=== PATIENT | male | born 1960 | race African-American/Black ===

== ENCOUNTER 2018-04-17 04:52 | Emergency (ER) | payer MEDICARE ==
[2018-04-17] MEDS ORDERED: Dextrose 50% Abboject 50 ML SYRINGE ONE (05:18)
[2018-04-17 05:26] LABS: #Eosinphils 0.1 thou/uL (0.0-0.7); #Lymphocytes 1.7 thou/uL (1.20-3.40); #Monocytes 0.5 thou/uL (0.11-0.59); #Neutrophils 7.3 thou/uL (1.40-6.50); %Basophils 0.5 % (0.0-1.0); %Eosinophils 0.7 % (0.0-10.0); %Lymphocytes 17.5 % (21.0-51.0); %Monocytes 5.5 % (0.0-10.0); %Neutrophils 75.7 % (42.0-75.0); Hemoglobin 12.4 g/dL (14.0-18.0); Mean Corpuscular HGB CONC 35.6 g/dL (32.0-36.0); Mean Corpuscular Hemoglobin 30.6 pg (27.0-31.0); Mean Corpuscular Volume 86.1 fL (78.0-98.0); Mean Platelet Volume 8.1 fL (7.4-10.4); Platelet Count 202 thou/uL (130-400); RBC Distribution Width 12.9 % (11.5-14.5); Red Blood Cell (RBC) Count 4.05 mill/uL (4.70-6.10); White Blood Cell (WBC) Count 9.7 thou/uL (4.8-10.8)
[2018-04-17 05:39] LABS: ALT (SGPT) 8 U/L (8-55); AST (SGOT) 16 U/L (5-34); Albumin 4.3 g/dL (3.5-5.0); Alkaline Phosphatase 42 U/L (40-150); Anion Gap 19 mmol/L (10-20); BUN (Urea Nitrogen) 24 mg/dL (8.4-25.7); Bilirubin, Total 0.5 mg/dL (0.2-1.2); Calc. Creatinine Clearance 0 mL/min (70-130); Calcium 9.4 mg/dL (7.8-10.44); Carbon Dioxide 17 mmol/L (22-29); Chloride 103 mmol/L (98-107); Estimated GFR-MDRD Greater than 90; Globulin 3.9 g/dL (2.4-3.5); Glucose 115 mg/dL (70-105); Magnesium 1.2 mg/dL (1.6-2.6); Potassium 4.5 mmol/L (3.5-5.1); Protein, Total 8.2 g/dL (6.0-8.3); Sodium 134 mmol/L (136-145)
[2018-04-17 05:45] LABS: CKMB 1.2 ng/mL (0-6.6); Troponin I Less than 0.010 ng/mL (< 0.028)
--- NOTE | 2018-04-19 20:00 | EKG ---
Test Reason : Blood Pressure : / mmHG Vent. Rate : 108 BPM Atrial Rate : 108 BPM P-R Int : 170 ms QRS Dur : 076 ms QT Int : 332 ms P-R-T Axes : 062 061 077 degrees QTc Int : 444 ms Sinus tachycardia Nonspecific ST and T wave abnormality Abnormal ECG Confirmed by TONY FERREIRA ([id number]), video effects editor LANCE BARRERA ([id number]) on 04/19/2018 8:00:06 PM Referred By: Confirmed By:TONY FERREIRA
== END 2018-04-17 07:30 | disposition home or self-care (01) ==
LOC: ERS 04:52
DX: E11.649 Type 2 diabetes mellitus with hypoglycemia without coma (principal); I10 Essential (primary) hypertension; Z86.73 Personal history of transient ischemic attack (TIA), and cerebral infarction without residual deficits; Z79.899 Other long term (current) drug therapy; Z79.84 Long term (current) use of oral hypoglycemic drugs; Z79.82 Long term (current) use of aspirin; Z87.891 Personal history of nicotine dependence
CPT/HCPCS: 36416; 80053; 82553; 83735; 84484; 85025; 93005; 96374; J3475; J7050

== ENCOUNTER 2018-11-05 13:07 | Inpatient (IN) | payer MEDICARE ==
[2018-11-05 14:43] LABS: #Basophils 0.1 thou/uL (0.0-0.2); #Eosinphils 0.1 thou/uL (0.0-0.7); #Monocytes 0.4 thou/uL (0.11-0.59); #Neutrophils 3.8 thou/uL (1.40-6.50); %Basophils 1.1 % (0.0-1.0); %Eosinophils 1.7 % (0.0-10.0); %Lymphocytes 30.9 % (21.0-51.0); %Monocytes 6.8 % (0.0-10.0); %Neutrophils 59.5 % (42.0-75.0); Hemoglobin 11.8 g/dL (14.0-18.0); Mean Corpuscular HGB CONC 33.7 g/dL (32.0-36.0); Mean Corpuscular Hemoglobin 29.6 pg (27.0-31.0); Mean Corpuscular Volume 87.9 fL (78.0-98.0); Mean Platelet Volume 8.4 fL (7.4-10.4); Platelet Count 210 thou/uL (130-400); RBC Distribution Width 12.7 % (11.5-14.5); Red Blood Cell (RBC) Count 3.97 mill/uL (4.70-6.10); White Blood Cell (WBC) Count 6.4 thou/uL (4.8-10.8)
[2018-11-05] MEDS ORDERED: Aspirin Chewable 81 MG TAB ONE ×2 (15:00→15:01)
[2018-11-05 15:05] LABS: ALT (SGPT) 9 U/L (8-55); AST (SGOT) 11 U/L (5-34); Albumin 3.9 g/dL (3.5-5.0); Alkaline Phosphatase 45 U/L (40-150); Anion Gap 14 mmol/L (10-20); BUN (Urea Nitrogen) 10 mg/dL (8.4-25.7); Bilirubin, Total 0.6 mg/dL (0.2-1.2); Calc. Creatinine Clearance 0 mL/min (70-130); Calcium 8.9 mg/dL (7.8-10.44); Carbon Dioxide 22 mmol/L (22-29); Chloride 106 mmol/L (98-107); Estimated GFR-MDRD Greater than 90; Globulin 3.2 g/dL (2.4-3.5); Glucose 120 mg/dL (70-105); Potassium 4.1 mmol/L (3.5-5.1); Protein, Total 7.1 g/dL (6.0-8.3); Sodium 138 mmol/L (136-145)
--- NOTE | 2018-11-05 15:05 | CT ---
CT HEAD WITHOUT CONTRAST: 11/05/2018 HISTORY: Altered mental status and slurred speech with right-sided weakness. Dry cough. COMPARISON: 03/11/2017 FINDINGS: The imaged paranasal sinuses/mastoid air cells appear well aerated. There is no displaced calvarial fracture. There is extensive periventricular, deep, and subcortical white matter hypodensity, evidence of small vessel disease, as seen on prior imaging. Areas of prior infarction are noted near the vertex, in t he right frontal parietal region. Areas of prior lacunar infarction noted within the basal ganglia b ilaterally. IMPRESSION: Chronic findings, as detailed above. No intracranial hemorrhage. If there is clinical concern for acute infarction, brain MRI recommended. POS: [facility]
[2018-11-05 16:50] VITALS: BMI 25.2
[2018-11-05] MEDS ORDERED: Ondansetron ODT 4 MG TAB PO PRN (19:47)
[2018-11-05] MEDS ORDERED: Ondansetron PF 4 MG/2 ML Vial IVP PRN (19:47)
[2018-11-05] MEDS ORDERED: HumaLOG 300 UNITS/3 ML VIAL SC PRN (19:47)
[2018-11-05] MEDS ORDERED: Dextrose 50% Abboject 50 ML SYRINGE SLOW IVP PRN (19:47)
[2018-11-05] MEDS ORDERED: hydrALAZINE 20 MG/ML VIAL SLOW IVP PRN (19:47)
[2018-11-05] MEDS ORDERED: Acetaminophen 500 MG TAB PO PRN (19:47)
[2018-11-05] MEDS ORDERED: Dextrose 5% in Water 1,000 ML IV PRN (19:47)
[2018-11-05] MEDS: Sodium Chloride 0.9% 1,000 ML IV SCH (20:47)
[2018-11-05] MEDS: Famotidine/PF 20 mg/2ml Vial SLOW IVP SCH (20:47)
[2018-11-05] MEDS: Atorvastatin Calcium 40 MG TAB PO SCH (20:51)
--- NOTE | 2018-11-06 01:43 | HP ---
PRIMARY CARE PROVIDER: Dr. Barnes at the [facility]. CHIEF COMPLAINT: Difficulty with speech. HISTORY OF PRESENT ILLNESS: This is a 57-year-old male who presents to [facility] Emergency Department complaining of approximate 4-day history of difficulty with speech. The patient noted the difficulty approximately 4 to 5 days prior to this evaluation with family member stating that he was not speaking at all initially. The patient regained some slurred speech in the last 24 to 48 hours with associated increased cough. The family attributed his cough to developing cold symptoms, however, when his speech did not return, they became concerned. The patient was apparently evaluated at the [facility] with recommendations to transfer to [facility] for further evaluation and CT imaging. The patient states he has a history of CVA approximately 2 years prior to this evaluation with residual right-sided weakness and some contracture of the right upper extremity. The patient needs standby/contact guard assistance for ambulation at home according to family members. The patient eats regular diet without modification to the texture. No specific history of fall, injury, fever, nausea , vomiting, or diarrhea. The patient denies any other specific complaints other than difficulty with speech and some difficulty when swallowing. In the emergency room, the patient underwent general evaluation including CT imaging of the brain showing no acute intracranial process with chronic ischemic white matter changes. The patient received aspirin and was referred to the Hospitalist Service for admission. The patient does admit that he takes aspirin 325 mg daily. PAST MEDICAL HISTORY: 1. 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 2. Hypertension. 3. Hyperlipidemia. 4. Diabetes mellitus type 2. PAST SURGICAL HISTORY: 1. 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 2. Status post drainage of abscess on the neck. CURRENT MEDICATIONS: 1. Enteric-coated aspirin 325mg p.o. daily. 2. Lisinopril 5 mg p.o. daily. 3. Glucotrol XL 5 mg p.o. b.i.d. 4. Metformin 1000 mg p.o. b.i.d. 5. Simvastatin 10 mg p.o. at bedtime. ALLERGIES: NO KNOWN DRUG ALLERGIES. FAMILY HISTORY: Positive for hypertension and diabetes mellitus type 2. SOCIAL HISTORY: The patient is accompanied by his sister in the hospital. Resides in [place], [place]. Disabled. Remote history of marijuana use. No current alcohol. Smokes cigars, quit in the last year. Ambulatory with standby/contact guard assistance. Needs assistance with activities of daily living. REVIEW OF SYSTEMS: CONSTITUTIONAL: Negative for weight loss or gain, ability to conduct usual activities. SKIN: Negative for rash, itching. EYES: Negative for double vision, pain. ENT/MOUTH: Negative for nose bleeding, neck stiffness, pain, tenderness. CARDIOVASCULAR: Negative for palpitations, dyspnea on exertion, orthopnea. RESPIRATORY: Negative for shortness of breath, wheezing, cough, hemoptysis, fever or night sweats. GASTROINTESTINAL: Negative for poor appetite, abdominal pain, heartburn, nausea , vomiting, constipation, or diarrhea. GENITOURINARY: Negative for urgency, frequency, dysuria, nocturia. MUSCULOSKELETAL: Negative for pain, swelling. NEUROLOGIC/PSYCHIATRIC: Negative for anxiety, depression. ALLERGY/IMMUNOLOGIC: Negative for skin rash, bleeding tendency. Otherwise, negative except as stated per HPI. PHYSICAL EXAMINATION: VITAL SIGNS: On admission, blood pressure 138/86, pulse 98, respiratory rate 18 , temperature 98.9 degrees Fahrenheit, O2 saturation 98% on room air. GENERAL APPEARANCE: This is a 57-year-old male, alert and oriented x3, pleasant with dysarthria. HEENT: Pupils are equal, round, and reactive to light and accommodation. Extraocular muscles are intact. No scleral icterus. No conjunctival injection. Nares patent. OP is clear. Teeth in fair repair. Right facial asymmetry noted. NECK: Supple. No cervical adenopathy. No thyromegaly. No carotid bruits. No JVD appreciated. Cervical spine with full active and passive range of motion. No meningeal signs noted. CHEST: Lungs are clear to auscultation bilaterally. CARDIOVASCULAR: S1 and S2 without noted murmur, rub, or gallop. ABDOMEN: Rounded, soft, nontender, and nondistended. Bowel sounds are positive in all 4 quadrants. There is no hepatosplenomegaly. No abdominal bruits. No rebound or guarding appreciated. EXTREMITIES: Warm and dry with fair turgor. No clubbing, cyanosis, or asymmetric edema appreciated. Pulses are palpable distally at the dorsalis pedis, posterior tibial, and popliteal arteries bilaterally. Capillary refill less than 2 seconds. NEUROLOGIC: Positive dysarthria and expressive dysphasia. Chronic right hemiparesis with right upper extremity contracture. Left ntzge-lcz-zcuo amputation noted. PERTINENT LAB AND X-RAY FINDINGS: Sodium 138, potassium 4.1, chloride 106, CO2 of 22, BUN 10, creatinine 0.81, estimated GFR greater than 90, glucose 120, calcium 8.9. LFTs within normal limits. CBC showed white blood cell count of 6.4, hemoglobin 12, hematocrit 35, platelet count [address] of the brain without contrast dated 11/05/2018, showed chronic changes bilaterally without acute process. EKG dated 11/05/2018, by my interpretation shows sinus mechanism with heart rates in the 70s. Normal R-wave progression noted in the precordial leads. Normal axis. No acute ST-T wave changes appreciated. ASSESSMENT AND PLAN: 1. Acute/subacute ischemic cerebrovascular accident, suspect left-sided involvement in Broca's region. We will obtain MRI imaging to confirm. Likely subacute presentation. Transition to Plavix 75 mg daily as the patient is likely an aspirin failure. Check fasting lipid profile per stroke protocol. Check 2D transthoracic echocardiogram and carotid Doppler study. PT, OT, and Speech Therapy evaluation. 2. Dysphasia. We will obtain speech therapy consultation. N.p.o. status pending evaluation. 3. Expressive dysphasia/dysarthria. Secondarily to #1. We will continue to monitor clinically. Continue general stroke protocol. Plavix 75 mg p.o. daily. 4. Hypertension. Resume home regimen of lisinopril. Serial blood pressure monitoring. 5. Hyperlipidemia. Check fasting lipid profile in the a.m. Continue metformin 1000 mg p.o. b.i.d. 6. Diabetes mellitus type 2. Insulin sliding scale for reflexive coverage. Metformin 1000 mg p.o. b.i.d. Accu-Cheks a.c. and at bedtime. ADA diet. 7. Prophylaxis. Sequential compression devices while in bed. Pepcid 20 mg p.o. b.i.d. CODE STATUS: Full. Surrogate medical decision maker is the patient's sister. Job ID: [id number] MTDD
[2018-11-06 06:00] LABS: Hemoglobin A1c 5.5 % (4.0-6.0)
[2018-11-06 06:04] LABS: Band 1 % (5-11); Eosinophils 4 % (0-10); Hemoglobin 11.4 g/dL (14.0-18.0); Lymphocytes 35 % (21-51); MDiff Complete? YES; Mean Corpuscular HGB CONC 33.1 g/dL (32.0-36.0); Mean Corpuscular Hemoglobin 29.2 pg (27.0-31.0); Mean Corpuscular Volume 88.2 fL (78.0-98.0); Mean Platelet Volume 8.4 fL (7.4-10.4); Monocytes 9 % (0-10); Neutrophil 51 % (42-75); Platelet Count 190 thou/uL (130-400); RBC Distribution Width 12.6 % (11.5-14.5); Red Blood Cell (RBC) Count 3.91 mill/uL (4.70-6.10); White Blood Cell (WBC) Count 5.1 thou/uL (4.8-10.8)
[2018-11-06 06:13] LABS: Anion Gap 12 mmol/L (10-20); BUN (Urea Nitrogen) 8 mg/dL (8.4-25.7); Calc. Creatinine Clearance 112 mL/min (70-130); Calcium 8.6 mg/dL (7.8-10.44); Carbon Dioxide 21 mmol/L (22-29); Cardiac Risk 2.7 (Less than 4.5); Chloride 110 mmol/L (98-107); Cholesterol 120 mg/dl (< 200 Desired); Estimated GFR-MDRD Greater than 90; Glucose 92 mg/dL (70-105); HDL Cholesterol 45 mg/dL (>60 Neg Risk); LDL Cholesterol, Calculated 65 mg/dL; Potassium 3.9 mmol/L (3.5-5.1); Sodium 139 mmol/L (136-145); Triglycerides 50 mg/dL (Less than 150)
[2018-11-06] MEDS: Sodium Chloride 0.9% 1,000 ML IV SCH ×2 (06:17→21:50)
--- NOTE | 2018-11-06 10:19 | MRI ---
BRAIN MRI WITHOUT CONTRAST: Date: 11/06/18 COMPARISON: 03/12/17. HISTORY: Altered mental status, right-sided weakness, slurred speech, assess for acute infarction. TECHNIQUE: Multiplanar, multisequence MR imaging of the brain provided without contrast. FINDINGS: The diffusion-weighted imaging demonstrates a subcentimeter focus of restricted diffusion, consistent with acute infarction involving the ventral aspect of the nathanael just below the junction with the midb rain on the right. This focus of acute infarction measures in the 5.0 mm range. No additional foci of restricted diffusion are noted. The axial gradient echo imaging demonstrates no evidence for acute hemorrhage. There is moderate diff use cerebral volume loss. There is extensive multifocal periventricular, deep, and subcortical white matter T2 and FLAIR hyperintensity, evidence of small vessel disease. There is evidence of prior infa rction involving the frontal lobe and frontoparietal region on the right near the vertex. No midline shift or mass effect is seen. The imaged paranasal sinuses/mastoid air cells appear well aerated. Reg ional bone marrow signal intensity appears grossly unremarkable. IMPRESSION: 5.0 mm acute infarction of the ventral aspect of the nathanael on the right. Evidence of small vessel dise ase and prior infarctions as detailed above. POS: [facility]
[2018-11-06] MEDS: Clopidogrel Bisulfate 75 MG TAB PO SCH (10:25)
[2018-11-06] MEDS: Lisinopril 5 MG TAB PO SCH (10:25)
[2018-11-06] MEDS: Famotidine/PF 20 mg/2ml Vial SLOW IVP SCH ×2 (10:26→21:51)
--- NOTE | 2018-11-06 11:03 | ULT ---
CAROTID ULTRASOUND: HISTORY: CVA. COMPARISON: 03/12/2017. TECHNIQUE: Multiplanar, mckoy scale, and color Doppler images are obtained in a carotid ultrasound. Spectral maryam lysis of the Doppler waveforms was performed. FINDINGS: No significant plaque is seen in either common or internal carotid artery. The Doppler waveforms are normal bilaterally. Peak systolic velocity in the right ICA is 32 cm/s. Peak systolic velocity in the right CCA is 53 cm /s. The right ICA/CCA ratio is 0.6. Peak systolic velocity in th left ICA is 47 cm/s. Peak systolic velocity in the left CCA is 84 cm/s. The left ICA/CCA ratio is 0.6. Both vertebral arteries demonstrate antegrade flow without focal stenosis. IMPRESSION: No evidence of hemodynamically significant stenosis. POS: [facility]
--- NOTE | 2018-11-06 11:12 | PDOC.PN ---
- Subjective Encounter Start Date: 11/06/18 Encounter Start Time: 11:09 Subjective: speech still dysarthric - Objective Resuscitation Status - Order Detail: 11/05/18 19:40 Resuscitation Status Routine Resuscitation Status: FULL: Full Resuscitation MAR Reviewed: Yes Vital Signs & Weight: Vital Signs (12 hours) Temp Pulse Resp BP BP Pulse Ox 11/06/18 10:25 84 176/85 H 11/06/18 08:00 97.9 F 65 20 155/83 H 99 11/06/18 04:00 98.1 F 75 16 124/70 100 11/06/18 00:00 97.9 F 81 16 127/75 99 Weight Weight 156 lb 11.979 oz I&O: 11/05/18 11/06/18 11/07/18 06:59 06:59 06:59 Intake Total 1021 Output Total 875 Balance 146 Result Diagrams: 11/06/18 05:36 11/06/18 05:36 Additional Labs: Accuchecks 11/06/18 11/06/18 11/05/18 10:54 05:27 20:21 POC Glucose 125 H 100 96 11/05/18 16:49 POC Glucose 109 Radiology Reviewed by me: Yes (MRI acute nathanael infarct) Phys Exam - Physical Examination Neck: no JVD Respiratory: clear to auscultation bilateral Cardiovascular: RRR, no significant murmur Gastrointestinal: soft, positive bowel sounds Musculoskeletal: no edema 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 old R hemiplegia Dx/Plan (1) Hemiplegia affecting right dominant side Code(s): G81.91 - HEMIPLEGIA, UNSPECIFIED AFFECTING RIGHT DOMINANT SIDE Status : Acute Qualifiers: Hemiplegia type: spastic Hemiplegia etiology: late effect of cerebrovascular disease Cerebrovascular disease type: cerebral infarction Qualified Code(s): I69.351 - Hemiplegia and hemiparesis following cerebral infarction affecting right dominant side (2) CVA (cerebral vascular accident) Code(s): I63.9 - CEREBRAL INFARCTION, UNSPECIFIED Status: Acute Qualifiers: CVA mechanism: thrombosis (3) Diabetes Code(s): E11.9 - TYPE 2 DIABETES MELLITUS WITHOUT COMPLICATIONS Status: Chronic Qualifiers: Diabetes mellitus type: type 2 Diabetes mellitus lobsterman insulin use: without lobsterman use Diabetes mellitus complication status: with neurologic complications Diabetes mellitus complication detail: with other neurological complication Qualified Code(s): E11.49 - Type 2 diabetes mellitus with other diabetic neurological complication (4) Dyslipidemia Code(s): E78.5 - HYPERLIPIDEMIA, UNSPECIFIED Status: Chronic (5) HTN (hypertension) Code(s): I10 - ESSENTIAL (PRIMARY) HYPERTENSION Status: Chronic Qualifiers: Hypertension type: essential hypertension Qualified Code(s): I10 - Essential (primary) hypertension - Plan cont ASA/plavix -: cont PT/OT/speech -: cont aaccu/SS/OHA -: cont statin, lisinopril * .
[2018-11-06] MEDS: HumaLOG 300 UNITS/3 ML VIAL SC PRN (17:04)
[2018-11-06] MEDS: Atorvastatin Calcium 40 MG TAB PO SCH (21:51)
--- NOTE | 2018-11-06 22:26 | CON ---
DATE OF CONSULTATION: 11/06/2018 CONSULTING PHYSICIAN: Hospitalist Services. IMPRESSION: 1. Pontine stroke. 2. Prior stroke with right hemiparesis. 3. Hypertension. 4. Diabetes. 5. Aspirin failure. PLAN: 1. Add Plavix. 2. The patient will be discharged home. HISTORY OF PRESENT ILLNESS: Mr. Hawkins is a 57-year-old man with a past history of stroke two years ago, leaving him with a right hemiparesis. He has been compliant with his treatment. He developed increased dysarthria and came into the emergency room. Initial CT scan showed extensive small vessel ischemic changes bilaterally. MRI revealed an acute area of infarction involving the right nathanael. His carotid Dopplers are clear. He had a normal echo last year with ejection fraction of 50% to 55%. He reports that he is a bit better, but it has not cleared up to his baseline. PAST MEDICAL HISTORY: As listed above. ALLERGIES: NONE REPORTED. SOCIAL HISTORY: He is . Does not smoke. FAMILY HISTORY: Noncontributory. MEDICATIONS: Medication list was reviewed. REVIEW OF SYSTEMS: A 10-system review of systems is otherwise negative. PHYSICAL EXAMINATION: GENERAL: He is a well-nourished, middle-aged man, lying in bed, in no distress. HEENT: Pupils are equal and reactive. Conjunctivae are clear. Oropharynx is clear. Cranium, normocephalic and atraumatic. NECK: Supple. No lymphadenopathy. EXTREMITIES: There is a left BKA. No edema is present. NEUROLOGIC: He is alert and cooperative. His speech is fluent with a moderately dysarthric quality. Cranial nerve exam shows a right facial droop. Motor exam shows good strength on the left and flexion contracture of the right upper extremity. He has limited mobility in the right leg. Sensation is intact. No abnormal movements are seen. IMAGING: Reviewed. EKG shows a sinus rhythm. SUMMARY: This is an unfortunate middle-aged man with extensive small vessel disease resulting in a new pontine infarct with limited neurologic injury. Continue his statin and aspirin, and add Plavix. I would be happy to follow up with him as an outpatient. Job ID: [id number]
[2018-11-07] MEDS: METFORMIN HCL PO SCH (00:04)
[2018-11-07] MEDS: Sodium Chloride 0.9% 1,000 ML IV SCH (08:52)
[2018-11-07] MEDS: Famotidine/PF 20 mg/2ml Vial SLOW IVP SCH ×2 (08:54→20:38)
[2018-11-07] MEDS: metFORMIN 500 MG TAB PO SCH ×2 (08:54→16:35)
[2018-11-07] MEDS: Lisinopril 5 MG TAB PO SCH (08:55)
[2018-11-07] MEDS: Clopidogrel Bisulfate 75 MG TAB PO SCH (08:58)
[2018-11-07] MEDS: Aspirin 325 MG TAB PO SCH (08:58)
[2018-11-07] MEDS: HumaLOG 300 UNITS/3 ML VIAL SC PRN ×2 (12:52→20:43)
[2018-11-07] MEDS ORDERED: Lisinopril 5 MG TAB PO SCH ×3 (13:17→13:30)
--- NOTE | 2018-11-07 13:19 | PDOC.PN ---
- Subjective Encounter Start Date: 11/07/18 Encounter Start Time: 13:18 Subjective: Admitted with dysarthria due to acute CVA. -: feeling better. No chest pain, palpitation or headache. -: Now on thickened liquid due to dysphagia - Objective Resuscitation Status - Order Detail: 11/05/18 19:40 Resuscitation Status Routine Resuscitation Status: FULL: Full Resuscitation Vital Signs & Weight: Vital Signs (12 hours) Temp Pulse Pulse Resp BP BP BP 11/07/18 11:37 98.6 F 90 16 165/95 H 11/07/18 10:12 75 176/86 H 11/07/18 08:55 70 136/73 11/07/18 08:00 11/07/18 07:40 98.6 F 70 17 138/77 11/07/18 04:00 98.7 F 70 18 128/73 Pulse Ox 11/07/18 11:37 98 11/07/18 10:12 11/07/18 08:55 11/07/18 08:00 96 11/07/18 07:40 96 11/07/18 04:00 100 Weight Admit Weight 156 lb 11.979 oz Weight 156 lb 11.979 oz I&O: 11/06/18 11/07/18 11/08/18 06:59 06:59 06:59 Intake Total 1021 100 Output Total 875 853 370 Balance 146 -275 -370 Result Diagrams: 11/06/18 05:36 11/06/18 05:36 Additional Labs: Accuchecks 11/07/18 11/07/18 11/06/18 10:56 05:49 19:22 POC Glucose 153 H 142 H 134 H 11/06/18 16:45 POC Glucose 199 H Phys Exam - Physical Examination HEENT: PERRLA, moist MMs Neck: no JVD, supple Respiratory: no rales, no rhonchi Fair air entry with some transmitted sound Cardiovascular: RRR Gastrointestinal: soft, non-tender, no distention Musculoskeletal: no edema Left BKA, Right upper limb fixed flexion deformity of the elbow and wrist right hemiparesis dysarthria noted. Psychiatric: A&O x 3 Dx/Plan (1) Acute CVA (cerebrovascular accident) Code(s): I63.9 - CEREBRAL INFARCTION, UNSPECIFIED Status: Acute (2) History of left below knee amputation Code(s): Z89.512 - ACQUIRED ABSENCE OF LEFT LEG BELOW KNEE Status: Acute (3) Hemiplegia affecting right dominant side Code(s): G81.91 - HEMIPLEGIA, UNSPECIFIED AFFECTING RIGHT DOMINANT SIDE Status : Acute Qualifiers: Hemiplegia type: spastic Hemiplegia etiology: late effect of cerebrovascular disease Cerebrovascular disease type: cerebral infarction Qualified Code(s): I69.351 - Hemiplegia and hemiparesis following cerebral infarction affecting right dominant side (4) DM2 (diabetes mellitus, type 2) Status: Chronic (5) Dyslipidemia Code(s): E78.5 - HYPERLIPIDEMIA, UNSPECIFIED Status: Chronic (6) HTN (hypertension) Code(s): I10 - ESSENTIAL (PRIMARY) HYPERTENSION Status: Chronic Qualifiers: Hypertension type: essential hypertension Qualified Code(s): I10 - Essential (primary) hypertension (7) Gait instability Code(s): R26.81 - UNSTEADINESS ON FEET Status: Acute - Plan Increase lisinopril to 20 daily. -: continue ASA and plavix. -: Continue other medications. -: get Rehab evaluation -: Monitor renal function. * .
[2018-11-07] MEDS: Atorvastatin Calcium 40 MG TAB PO SCH (20:38)
[2018-11-08 06:30] LABS: Anion Gap 14 mmol/L (10-20); BUN (Urea Nitrogen) 7 mg/dL (8.4-25.7); Calc. Creatinine Clearance 102 mL/min (70-130); Carbon Dioxide 22 mmol/L (22-29); Chloride 108 mmol/L (98-107); Estimated GFR-MDRD Greater than 90; Glucose 134 mg/dL (70-105); Potassium 3.6 mmol/L (3.5-5.1); Sodium 140 mmol/L (136-145)
[2018-11-08] MEDS ORDERED: Lisinopril 20 MG TAB PO SCH ×2 (09:00→21:00)
[2018-11-08] MEDS: Clopidogrel Bisulfate 75 MG TAB PO SCH (09:54)
[2018-11-08] MEDS: Aspirin 325 MG TAB PO SCH (09:55)
[2018-11-08] MEDS: Famotidine/PF 20 mg/2ml Vial SLOW IVP SCH (09:55)
[2018-11-08] MEDS: metFORMIN 500 MG TAB PO SCH (09:55)
--- NOTE | 2018-11-08 11:30 | PDOC.PN ---
- Subjective Encounter Start Date: 11/08/18 Encounter Start Time: 11:28 Subjective: No new problem. -: Awaiting Placement - Objective Resuscitation Status - Order Detail: 11/05/18 19:40 Resuscitation Status Routine Resuscitation Status: FULL: Full Resuscitation Vital Signs & Weight: Vital Signs (12 hours) Temp Pulse Resp BP BP Pulse Ox 11/08/18 09:55 164/80 H 11/08/18 07:37 99 F 65 16 164/80 H 95 11/08/18 04:00 97.8 F 72 16 153/73 H 100 11/08/18 00:00 98.4 F 75 16 125/74 100 Weight Admit Weight 156 lb 11.979 oz Weight 156 lb 11.979 oz I&O: 11/07/18 11/08/18 11/09/18 06:59 06:59 06:59 Intake Total 100 237 Output Total 375 1020 Balance -065 -804 Result Diagrams: 11/06/18 05:36 11/08/18 05:59 Additional Labs: Accuchecks 11/08/18 11/08/18 11/07/18 10:57 05:21 20:07 POC Glucose 195 H 132 H 192 H 11/07/18 16:56 POC Glucose 133 H Phys Exam - Physical Examination Constitutional: NAD HEENT: PERRLA, moist MMs Neck: supple Respiratory: no rhonchi, clear to auscultation bilateral Cardiovascular: RRR, no significant murmur Gastrointestinal: soft, non-tender, no distention, positive bowel sounds Musculoskeletal: no edema Right upper limb fixed flexion defomity at the elbow and wrist. LBKA noted Right hemiparesis noted. Psychiatric: A&O x 3 Dx/Plan (1) Acute CVA (cerebrovascular accident) Code(s): I63.9 - CEREBRAL INFARCTION, UNSPECIFIED Status: Acute (2) History of left below knee amputation Code(s): Z89.512 - ACQUIRED ABSENCE OF LEFT LEG BELOW KNEE Status: Acute (3) Hemiplegia affecting right dominant side Code(s): G81.91 - HEMIPLEGIA, UNSPECIFIED AFFECTING RIGHT DOMINANT SIDE Status : Acute Qualifiers: Hemiplegia type: spastic Hemiplegia etiology: late effect of cerebrovascular disease Cerebrovascular disease type: cerebral infarction Qualified Code(s): I69.351 - Hemiplegia and hemiparesis following cerebral infarction affecting right dominant side (4) DM2 (diabetes mellitus, type 2) Status: Chronic (5) Dyslipidemia Code(s): E78.5 - HYPERLIPIDEMIA, UNSPECIFIED Status: Chronic (6) HTN (hypertension) Code(s): I10 - ESSENTIAL (PRIMARY) HYPERTENSION Status: Chronic Qualifiers: Hypertension type: essential hypertension Qualified Code(s): I10 - Essential (primary) hypertension (7) Gait instability Code(s): R26.81 - UNSTEADINESS ON FEET Status: Acute - Plan Increase lisinopril to 20 bidContinue other treatments. -: awaiting placement. * .
[2018-11-08 11:33] VITALS: BP 149/78; TEMP 98.3
[2018-11-08] MEDS: HumaLOG 300 UNITS/3 ML VIAL SC PRN (11:54)
--- NOTE | 2018-11-10 12:11 | DIS ---
DATE OF ADMISSION: 11/05/2018 DATE OF DISCHARGE: 11/08/2018 DISCHARGE DIAGNOSES: 1. Acute cerebrovascular accident. 2. Prior cerebrovascular accident with residual right hemiplegia. 3. Status post left below-knee amputation. 4. Gait instability. 5. Dysphagia. 6. Hypertension. 7. Dyslipidemia. 8. Type 2 diabetes mellitus. CONSULTS: 1. Neurology. 2. Physical Therapy. 3. Occupational Therapy. HOSPITAL COURSE: A 57-year-old male with prior history of stroke with residual right-sided hemiparesis, admitted with acute onset of dysarthria. Initial CT showed extensive small-vessel changes bilaterally with subsequent MRI revealed acute infarct involving the right nathanael. Carotid Dopplers were unremarkable, and the echocardiogram showed preserved ejection fraction of 50% to 55%. The patient was started on restorative therapy with PT, OT, and Speech. He was found to have dysphagia, hence was started on nectar thickened liquid with puree consistency. The patient also received physical therapy with improvement. He however was found to have gait instability, which was magnified by use of left prosthesis, hence was discharged to a [facility] facility for restorative therapy. The patient also was found to have uncontrolled high blood pressure. Hence, lisinopril dose was increased from 5 b.i.d. to 20 b.i.d. The patient also was started on Plavix in addition to aspirin as recommended by Neurology since it is deemed that he failed aspirin. Also Lipitor was increased to 80 mg. PHYSICAL EXAMINATION: VITAL SIGNS: Temperature 98.3, pulse 70, respiratory rate 16, SpO2 99 on room air. Blood pressure 149/78. GENERAL: Middle aged male, in no obvious distress. Afebrile. Anicteric. HEENT: Normocephalic, atraumatic. Pupils are equal and reacting to light. RESPIRATORY: Good air entry bilateral with no obvious crackle or rhonchi. CARDIOVASCULAR: Regular rhythm and rate with normal heart sounds 1 and 2. No murmur was appreciated. GI: Abdomen is full, soft, nontender, nondistended with normal bowel sounds. EXTREMITIES: Left BKA noted. No obvious edema or erythema was appreciated. NEUROLOGIC: Conscious and alert, oriented x3 with appropriate mental status. Some dysarthria noted. Right-sided mild hemiparesis noted. DIAGNOSTIC DATA: MRI performed on 11/06 showed a 5.0 mm acute infarction of the ventral aspect of the nathanael on the right side. Also noted were evidence of small-vessel disease and prior infarctions. DISCHARGE CONDITION: Improved and stable. FOLLOWUP: The patient is to follow with PCP in 1 week of discharge from the [facility] facility. DISCHARGE MEDICATIONS: 1. Glipizide 5 mg p.o. b.i.d. 2. Metformin 1000 mg p.o. b.i.d. 3. Acetaminophen 1000 mg p.o. q.6 p.r.n. 4. Aspirin 325 mg p.o. daily. 5. Lipitor 40 mg p.o. daily. 6. Plavix 75 mg p.o. daily. 7. Lisinopril 20 mg p.o. b.i.d. 8. Ondansetron 4 mg p.o. q.6 p.r.n. for nausea. TIME SPENT: Discharge took more than 37 minutes. Job ID: [id number]
== END 2018-11-08 14:59 | DRG 65 ==
LOC: ERS 13:07 → 2SE 15:25
PROVIDERS: ADMIT Family Medicine; ATTEND Family Medicine
DX: I63.09 Cerebral infarction due to thrombosis of other precerebral artery (principal); G81.91 Hemiplegia, unspecified affecting right dominant side; R47.02 Dysphasia; E78.5 Hyperlipidemia, unspecified; I10 Essential (primary) hypertension; Z89.512 Acquired absence of left leg below knee; Z79.82 Long term (current) use of aspirin; Z79.899 Other long term (current) drug therapy; Z79.84 Long term (current) use of oral hypoglycemic drugs; Z87.891 Personal history of nicotine dependence; R47.1 Dysarthria and anarthria; E11.49 Type 2 diabetes mellitus with other diabetic neurological complication
CPT/HCPCS: 36415; 36416; 70450; 70551; 80048; 80053; 80061; 83036; 84484; 85007; 85025; 85027; 93005; 93306; 93880; S0028

== ENCOUNTER 2019-02-13 11:10 | Inpatient (IN) | payer MEDICARE, MEDICAID ==
[2019-02-13] MEDS ORDERED: ISOVUE-370 76%-LOCM 1 ML ONE (11:16)
[2019-02-13 11:36] LABS: #Eosinphils 0.1 thou/uL (0.0-0.7); #Lymphocytes 1.6 thou/uL (1.20-3.40); #Monocytes 0.3 thou/uL (0.11-0.59); %Basophils 0.3 % (0.0-1.0); %Eosinophils 1.3 % (0.0-10.0); %Lymphocytes 15.6 % (21.0-51.0); %Monocytes 2.8 % (0.0-10.0); Mean Corpuscular HGB CONC 32.9 g/dL (32.0-36.0); Mean Corpuscular Hemoglobin 29.2 pg (27.0-31.0); Mean Corpuscular Volume 88.9 fL (78.0-98.0); Mean Platelet Volume 8.7 fL (7.4-10.4); Platelet Count 184 thou/uL (130-400); RBC Distribution Width 13.1 % (11.5-14.5); Red Blood Cell (RBC) Count 4.12 mill/uL (4.70-6.10)
[2019-02-13 11:43] LABS: PTT 29.2 SEC (22.9-36.1); Prothrombin Time 13.2 SEC (12.0-14.7)
--- NOTE | 2019-02-13 11:44 | CT ---
CT cervical spine noncontrast HISTORY: Fall. Neck injury. FINDINGS: Vertebral body heights are maintained. Disc space narrowing most pronounced at the C3-4, C4 -5, and C6-7 levels. Minimal degenerative spondylolisthesis at the C5-6 level. Minimal degenerative retrolisthesis at the C6-7 level. Multilevel severe central canal and foraminal stenoses. Central can al stenosis most severe at the C4-5 level. Cervicothoracic junction is intact. No acute fracture or dislocation. IMPRESSION: Prominent degenerative changes throughout the cervical spine. No acute osseous abnormalit ies are demonstrated.
--- NOTE | 2019-02-13 11:44 | CT ---
CT BRAIN WITHOUT CONTRAST: HISTORY:Left-sided weakness, level 2 stroke, slurred speech and drooping of the left-sided amount COMPARISON:11/05/2018 FINDINGS: There are foci of decreased attenuation in the periventricular white matter, consistent with chronic small vessel ischemic disease. Old infarctions in the right frontal and parietal lobes are again seen. No evidence of acute infarct, hemorrhage, midline shift or abnormal extra-axial fluid collections is seen. The ventricular size is appropriate and the basilar cisterns are patent. The bony calvarium is intact. The visualized paranasal sinuses and mastoid air cells are well aerated. IMPRESSION: No CT evidence of acute intracranial process. Discussed over the telephone with ER physician Dr. Drew Hillman at 11:40 AM
[2019-02-13 11:58] LABS: ALT (SGPT) 10 U/L (8-55); AST (SGOT) 15 U/L (5-34); Albumin 4.1 g/dL (3.5-5.0); Alkaline Phosphatase 40 U/L (40-150); Anion Gap 14 mmol/L (10-20); BUN (Urea Nitrogen) 12 mg/dL (8.4-25.7); Bilirubin, Total 0.7 mg/dL (0.2-1.2); Calc. Creatinine Clearance 0 mL/min (70-130); Calcium 8.7 mg/dL (7.8-10.44); Carbon Dioxide 20 mmol/L (22-29); Chloride 109 mmol/L (98-107); Estimated GFR-MDRD Greater than 90; Glucose 119 mg/dL (70-105); Potassium 4.5 mmol/L (3.5-5.1); Protein, Total 7.1 g/dL (6.0-8.3); Sodium 138 mmol/L (136-145)
--- NOTE | 2019-02-13 12:00 | CT ---
CT arteriogram neck with IV contrast and 3-D imaging CT arteriogram head with IV contrast and 3-D imaging CT brain with IV contrast HISTORY: Altered mental status. TIA. Vascular disease. FINDINGS: Mild emphysematous changes at the lung apices. Normal branching of the great vessels at the aortic arch with minimal arterial calcification. Good flow into and throughout each carotid and vertebral system. Carotid bifurcations are widely patent. Significant calcification and stenosis limi mohan to the supraclinoid portion of the internal carotid arteries bilaterally. Good flow into each cerebral and cerebellar system. [place] of [place] is patent. IMPRESSION: Atherosclerosis. No acute vascular abnormalities or acute intracranial abnormalities are demonstrated. Findings were called to Dr. Hillman in the emergency department at 1151 hours. Code CR.
[2019-02-13] MEDS ORDERED: Lidocaine 1% w/Epinephrine 1:100K 20 ML VIAL ONE (12:13)
[2019-02-13] MEDS ORDERED: Acetaminophen 325 MG TAB PO PRN (16:45)
[2019-02-13 17:21] VITALS: BMI 23.1
--- NOTE | 2019-02-13 19:09 | RAD ---
FOUR VIEWS LEFT ELBOW: 02/13/19 HISTORY: Pain. Fall. FINDINGS: No joint effusion. No fracture. No cortical irregularity or periosteal reaction. IMPRESSION: No posttraumatic change. POS: PPP
--- NOTE | 2019-02-13 19:10 | RAD ---
THREE VIEWS LEFT WRIST: 02/13/19 HISTORY: Fall. Pain. FINDINGS: Extensive atherosclerotic disease. Intercarpal and radiocarpal joint space is preserved. No fracture. No cortical irregularity or periosteal reaction. IMPRESSION: 1. No fracture. 2. Atherosclerotic disease. POS: PPP
[2019-02-13] MEDS: Famotidine 20 MG TAB PO SCH (22:23)
[2019-02-13] MEDS: Heparin 5,000 UNITS/ML VIAL SC SCH (22:23)
[2019-02-14 00:53] LABS: Amphetamine Not Detected (NotDetected); Barbiturates Screen Not Detected (NotDetected); Benzodiazepine Screen Not Detected (NotDetected); Cocaine Metabolite Screen Not Detected (NotDetected); Medtox Control Line Valid? VALID (VALID); Medtox Reader # READER 4; Methadone Not Detected (NotDetected); Methamphetamine Not Detected (NotDetected); Opiate Screen Not Detected (NotDetected); Oxycodone Screen Not Detected (NotDetected); Phencyclidine (PCP) Not Detected (NotDetected); THC/Cannabinoid Screen Not Detected (NotDetected); Tricyclic Screen Not Detected (NotDetected)
--- NOTE | 2019-02-14 02:18 | CON ---
DATE OF CONSULTATION: REASON FOR CONSULTATION: Clear cervical spine. REQUESTING PHYSICIAN: Dr. Lyon. HISTORY OF PRESENT ILLNESS: The patient is a 58-year-old man, who reportedly fell out of bed. The patient is known to have dense paralysis on his right side. He thought he was able to roll in bed, but misjudged and had fallen out of bed, hitting his right forehead, was noted to have some altered mental status changes and some decreased intelligence intern strength on the left. The patient was brought to the emergency department where he underwent evaluation, examination for a level [address] evaluations were unremarkable for signs of acute stroke. He was having some neck pain, so he was left in an [place] collar. We have been asked to evaluate his C-spine to see, if he can be removed from his collar. ALLERGIES: NONE. CURRENT MEDICATIONS: 1. Simvastatin. 2. Metformin. 3. Glipizide. 4. Lisinopril. 5. Keppra. 6. Aspirin. 7. Pioglitazone. PAST MEDICAL HISTORY: Hyperlipidemia, ischemic CVA, TIA, diabetes, hypertension. 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 SOCIAL HISTORY: The patient denies drug use for the past 20 years. He denies alcohol and is a former smoker, though does occasionally smoke cigars. FAMILY MEDICAL HISTORY: Hypertension, diabetes. REVIEW OF SYSTEMS: A 10-point review of systems is negative as otherwise stated. PHYSICAL EXAMINATION: GENERAL: The patient is currently resting comfortably in a stroke observation bed. He is awake, responsive. [place] Coma Scale is 15. HEENT: Head, he has a laceration to the right forehead just supraorbital that has been repaired in the ER. Eyes are PERRLA. Extraocular motion intact. Ears are atraumatic without discharge. Externally, there is some dry crusted blood in the right naris. Oropharynx is clear. NECK: Immobilized in an [place] collar. Palpation to the posterior neck reveals tenderness to the midline and also some left greater than right paraspinous tenderness. His cervical collar was returned and secured. It is well fitting, there is no tracheal deviation, jugular vein distention. LUNGS: Clear to auscultation with good inspiratory and expiratory effort. HEART: Regular rate and rhythm. ABDOMEN: Soft, flat and nontender with active bowel sounds. PELVIS: Stable. EXTREMITIES: As previously noted, left BKA. Right upper and lower extremity dense paralysis. The patient has what appears to be a significant flexion contracture on the right, also keeping his arm crossed at his chest. The left upper extremity shows weak, but mobile at the shoulder with abduction, abduction. The patient has flexion and extension of the elbow, flexion and extension weakly at the wrist, primarily dorsiflexion of the wrist, has 1 to 2+ strength of intelligence intern and extension of his fingers. BACK: Nontender. LABORATORY FINDINGS: White blood cell count 10.0, hemoglobin 12.0, hematocrit 36.6, platelets 184. Sodium 138, potassium 4.5, chloride 109, CO2 of 20, BUN 12, creatinine 0.79, glucose 119. LFTs are unremarkable. Troponin is less than 0.010. PT 13, INR 1.0, PTT 29. RADIOGRAPHIC REPORTS: 1. CT of the brain without contrast shows no CT evidence of acute intracranial process. 2. CT of the C-spine and head with IV contrast shows atherosclerosis. No acute vascular abnormality or acute intracranial abnormalities demonstrated. 3. CT of the C-spine without contrast shows prominent degenerative changes throughout the cervical spine. No acute osseous abnormalities are demonstrated. ASSESSMENT/PLAN: 1. Status post fall. 2. Altered mental status, resolving. 3. Forehead laceration. 4. Cervicalgia. 5. Left upper extremity neurapraxia. PLAN: Will be to get plain radiographs of his elbow and left wrist to evaluate for possible fractures causing radial nerve type injury, doubtful. We will re- evaluate the patient tomorrow. We will leave his Montrose collar in place. If he does not have significant improvement overnight or if there is a change, consider MRI of the C-spine and possibly shoulder, though these can certainly be done in a nonemergent fashion. Job ID: [id number] [facility]
--- NOTE | 2019-02-14 03:22 | HP ---
CHIEF COMPLAINT: Fall and left-sided weakness. HISTORY OF PRESENT ILLNESS: This patient is a 58-year-old male, who was admitted here in October at which time, the patient experienced some right-sided weakness. At that time, the patient had an MRI of the brain indicating some right frontal and parietal infarcts, which were old as well as new subcentimeter acute infarct of the ventricle aspect of the nathanael on the right side as well. He also had evidence of small-vessel disease. The patient from that point, had some right-sided weakness and has essentially had paralysis in his right upper extremity resulting in some contracture. The patient reports that he was in his bed and rolled over thinking he had adequate room where in fact he did not. He fell to the floor. He hit his right forehead and had a laceration over his right eyebrow, but also noted significant weakness on his left side as well. The patient did subsequently present to the emergency department. However, he was well outside of the timeframe for any potential intervention. This apparently happened at about 2 o'clock in the morning and he was found by his family later this morning, EMS was called. He was reportedly having some drooping and slurred speech. REVIEW OF SYSTEMS: The patient denies any antecedent illness, fevers, chills. He denies any difficulty with speech or swallowing presently. Normal bowel and bladder functions. All systems reviewed, all pertinent positives and negatives noted above. PAST MEDICAL HISTORY: 1. Notable for ischemic CVA with residual right hemiparesis. 2. Hypertension. 3. Hyperlipidemia. 4. Diabetes mellitus. PAST SURGICAL HISTORY: 1. Left [id number] amputation secondary to a forklift accident. 2. Status post drainage of a neck abscess. FAMILY HISTORY: Notable for hypertension, diabetes. SOCIAL HISTORY: The patient lives in [place]. He is disabled. Has a remote history of marijuana use. No alcohol use. No tobacco. No drugs. He is full code and his sister or his younger brother would be his surrogate decision makers should that become necessary. CURRENT MEDICATIONS: 1. Simvastatin 10 mg at bedtime. 2. Metformin 1000 mg b.i.d. 3. Glipizide 5 mg b.i.d. 4. Lisinopril 10 mg daily. 5. Aspirin 325 one p.o. daily. 6. Pioglitazone 30 mg, one p.o. daily. ALLERGIES: NONE KNOWN. PHYSICAL EXAMINATION: VITAL SIGNS: BP 134/74, pulse 77, respirations 15, temperature is 98.6, O2 saturation 100% on room air. GENERAL APPEARANCE: Age-appropriate male. He is in no distress. He is awake, alert, oriented, pleasant, and cooperative. He is wearing a C-collar. HEENT: The patient has a sutured laceration about 3 cm above the right eyebrow. He has no OP lesions. Oral mucosa is pink and moist. NECK: Neck exam limited with C-collar, has no significant tenderness to palpation. HEART: Regular rate and rhythm without murmurs, gallops, or rubs. LUNGS: Clear to auscultation bilaterally with good chest wall expansion and air exchange. No wheezes or rales. ABDOMEN: Soft, nontender, and nondistended. Positive bowel sounds. No masses and no organomegaly. EXTREMITIES: Left BKA. No edema. NEUROLOGICALLY: The patient appears to be cognitively intact. His speech is a bit limited, because of the C-collar, although it appears to be fairly normal. He has contraction of the right upper extremity to the fingers. Has profound weakness to right lower extremity. On the left, the patient is unable to move his fingers. He can flex and extend the wrist, but has 3/5 strength throughout the entire left and lower extremities. LABORATORY DATA: White count 10.0, hemoglobin 12.0, platelets 184. INR 1.0, PTT 29.2. Sodium 138, potassium 4.5, chloride 109, CO2 20, BUN 12, creatinine 0.79, glucose 119, calcium 8.7, total bilirubin 0.7, AST 15, ALT is 10, alkaline phosphatase 40. Troponin less than 0.01. Albumin 4.1. IMAGIN. CT brain only shows the old findings as noted above with prior ischemic infarction of the right frontal and parietal lobes with chronic white matter ischemia. 2. CT angiogram negative. 3. CT of the C-spine negative. 4. X-rays of the elbow and wrist are negative. IMPRESSION AND PLAN: 1. Acute left side weakness in a patient with a history of prior cerebrovascular accidents. The patient's prior MRIs indicated ischemic events of the right frontal and parietal areas, which are more consistent with the patient's exam findings today, although these apparently are new. We will obtain an MRI, do a Stroke Team consult, Neurology consult. Given the patient's fall, we will also obtain MRI of the C-spine. 2. Fall injury with initial neck pain and keep him in the C-collar, have Trauma service clear the patient. 3. Laceration, right forehead sutured in the emergency department. 4. History of prior cerebrovascular accident with right hemiplegia. 5. Diabetes mellitus. Diabetic diet, Accu-Cheks, sliding scale insulin. We will continue his home medications. 6. Hypertension. Continue with the Zestril and continue the patient's home Keppra to identify the underlying indication for that. It is possible that the patient could have had some seizure activity resulting in some Lex's paralysis, although there is nothing . 7. Hyperlipidemia, continue simvastatin. Job ID: [id number]
[2019-02-14 06:20] LABS: #Eosinphils 0.1 thou/uL (0.0-0.7); #Lymphocytes 2.3 thou/uL (1.20-3.40); #Monocytes 0.6 thou/uL (0.11-0.59); #Neutrophils 2.9 thou/uL (1.40-6.50); %Basophils 0.7 % (0.0-1.0); %Lymphocytes 39.1 % (21.0-51.0); %Monocytes 9.5 % (0.0-10.0); %Neutrophils 48.8 % (42.0-75.0); Hemoglobin 10.3 g/dL (14.0-18.0); Mean Corpuscular HGB CONC 34.7 g/dL (32.0-36.0); Mean Corpuscular Hemoglobin 30.2 pg (27.0-31.0); Mean Corpuscular Volume 87.2 fL (78.0-98.0); Mean Platelet Volume 8.3 fL (7.4-10.4); Platelet Count 196 thou/uL (130-400); RBC Distribution Width 12.9 % (11.5-14.5); Red Blood Cell (RBC) Count 3.42 mill/uL (4.70-6.10); White Blood Cell (WBC) Count 5.9 thou/uL (4.8-10.8)
[2019-02-14 06:45] LABS: Anion Gap 13 mmol/L (10-20); BUN (Urea Nitrogen) 12 mg/dL (8.4-25.7); Calc. Creatinine Clearance 103 mL/min (70-130); Calcium 8.8 mg/dL (7.8-10.44); Carbon Dioxide 21 mmol/L (22-29); Cardiac Risk 2.6 (Less than 4.5); Chloride 107 mmol/L (98-107); Cholesterol 113 mg/dl (< 200 Desired); Estimated GFR-MDRD Greater than 90; Glucose 108 mg/dL (70-105); HDL Cholesterol 44 mg/dL (>60 Neg Risk); LDL Cholesterol, Calculated 56 mg/dL; Potassium 3.8 mmol/L (3.5-5.1); Sodium 137 mmol/L (136-145); Triglycerides 63 mg/dL (Less than 150)
[2019-02-14] MEDS: Aspirin 325 MG TAB PO SCH (08:48)
[2019-02-14] MEDS: levETIRAcetam 500 MG TAB PO SCH ×2 (08:48→21:08)
[2019-02-14] MEDS: metFORMIN 500 MG TAB PO SCH ×2 (08:48→16:26)
[2019-02-14] MEDS: Lisinopril 10 MG TAB PO SCH (08:48)
[2019-02-14] MEDS: Famotidine 20 MG TAB PO SCH ×2 (08:48→21:08)
[2019-02-14] MEDS: Heparin 5,000 UNITS/ML VIAL SC SCH ×3 (08:49→21:08)
[2019-02-14] MEDS: Pioglitazone HCl 15 MG TAB PO SCH (08:49)
[2019-02-14] MEDS: HYDROcodone/Acetaminophen 5/325 mg Tablet PO PRN ×2 (10:30→16:27)
--- NOTE | 2019-02-14 13:51 | MRI ---
Exam: Brain MRI without contrast HISTORY: Left-sided weakness. Slurred speech. Left facial droop. COMPARISON: 11/06/2018 FINDINGS: Calvarial marrow signal intensity: Appropriate T1 signal Gradient echo sequence: No acute hemorrhage. Stable hypointense foci on the axial gradient echo seque nce involving the left caudate nucleus and right subependymal region due to remote insult. Brain parenchyma: No mass, mass effect or midline shift. Age-appropriate atrophy. Focus of malacic an d gliotic changes involving the right frontoparietal region. Cortical mckoy-white matter differentiation: Preserved Restricted diffusion: Central arterial flow voids are maintained. Absent restricted diffusion White matter signal intensities: T2, FLAIR white matter hyperintensities due to chronic small vessel ischemic changes Sinuses: Adequate aeration of the paranasal sinuses and mastoid air cells. IMPRESSION: 1. Absent restricted diffusion. No acute infarct 2. Stable chronic small vessel ischemic changes. Stable malacic and gliotic change involving the righ t frontoparietal region.
--- NOTE | 2019-02-14 16:27 | MRI ---
Exam: MRI thoracic spine without contrast History: Weakness. Fall. Pain. Comparison: None FINDINGS: Heterogeneous marrow signal intensity of the thoracic vertebra likely representing senescent change. Vertebral body height is maintained. There is no fracture. No significant STIR hyperintensity to suggest vertebral body edema or ligamentous injury. Visualized mediastinum, and solid organs are grossly unremarkable. Dependent atelectatic changes in t he lung parenchyma. The overall AP diameter the central spinal canal is narrowed secondary to congenitally foreshortened pedicles There are degenerative changes in the distal cervical spine. Refer to separate cervical spine MRI rep ort for further detail Throughout the thoracic spine, there is no evidence of high-grade central canal stenosis. There is so me mass effect in the right hemicord at T3-T4 with slight deformity of the cord secondary to a small right paracentral disc. There is no evidence of cord expansion. No definite cord malacia. No co rd signal abnormality. Conus medullaris terminates beyond the T12 level. IMPRESSION: 1. No evidence of a thoracic spine fracture 2. Overall decreased AP diameter of the central spinal canal secondary to congenitally foreshortened pedicle. No evidence of high-grade central canal stenosis or high-grade foraminal narrowing. 3. No cord signal abnormality. Transcribed Date/Time: 02/14/2019 5:35 PM
--- NOTE | 2019-02-14 16:50 | MRI ---
Exam: MRI cervical spine without contrast HISTORY: Recent fall. Extremity weakness.. COMPARISON: None FINDINGS: Heterogeneous marrow signal intensity of the cervical vertebra likely due to senescent change. Cervi ariana spine vertebral body height is maintained. No fracture. 3 mm of retrolisthesis of C4 upon C5, 3 mm of retrolisthesis C6 upon C7. No significant STIR hyperintensity to suggest vertebral body edema or ligamentous injury. There are t ype I Modic changes at the C4-C5. Visualized brain parenchyma, cervicomedullary junction and the upper thoracic cord have a normal size and signal intensity. Starting at the superior endplate of C5 and extending inferiorly to the superior endplate of C6 there is a central T2 hyperintensity predominantly involves the central mckoy matter and preserved the peripheral white matter. Cord edema favored. There is no cord expansion or volume loss. C2-C3: No significant central canal stenosis. Mild right foraminal narrowing. Left neural foramen is patent. C3-C4: Broad-based disc osteophyte complex effaces the ventral subarachnoid space and deforms the sonam tral cord. Moderate central canal stenosis. Moderate bilateral foraminal narrowing due to uncovertebral hypertrophy C4-C5: Broad-based disc osteophyte complex deforms the thecal sac and causes mass effect upon the cer vical cord. Moderate to severe central canal stenosis. Severe right and moderate to severe left foraminal narrowing due to uncovertebral hypertrophy. C5-C6: Broad-based disc osteophyte complex abuts the thecal sac. Ventral subarachnoid space is still maintained. Mild central canal stenosis. Mild right foraminal narrowing. Left neural foramen is patent C6-C7: Broad-based disc osteophyte complex abuts the thecal sac. Ventral subarachnoid space is mainta ined. Mild central canal stenosis. Moderate bilateral foraminal narrowing due to uncovertebral hypertrophy. C7-T1: Broad-based discussed by complex abuts the thecal sac. Subarachnoid space is maintained. Mild to moderate central canal stenosis. Moderate to severe bilateral foraminal narrowing due to uncovertebral hypertrophy. IMPRESSION: 1. Degenerative changes of the cervical spine as detailed above. 2. No evidence of a cervical spine fracture 3. Central T2 hyperintensity involving the cervical cord at C5 and C6, favored to be due to edema. Th ere is no evidence of cord expansion to suggest a malignant process. There is no evidence of volume loss is suggested cord malacia. As a conservative measure, follow-up imaging can be performed in one month. Results of study discussed with Dr. Herrera on 02/14/19 at 4:29 p.m. Code CR Transcribed Date/Time: 02/14/2019 5:32 PM
[2019-02-14] MEDS: Simvastatin 5 MG TAB PO SCH (21:09)
[2019-02-14] MEDS ORDERED: Dexamethasone 10 MG in Sodium Chloride 0.9% 50 ML IVPB SCH (23:15)
--- NOTE | 2019-02-15 00:27 | CON ---
DATE OF CONSULTATION: 02/14/2019 HISTORY OF PRESENT ILLNESS: This is a 58-year-old man with a previous history of multifocal cerebrovascular accidents, which dates back to 2016 and most recently October of 2018. This has left the patient with residual right hemiparesis. The patient is also status post left BKA and has limited mobility using left limb prosthesis. He was admitted yesterday following a fall off a bed. The patient apparently rolled off a bed, landing hard on his right side and was discovered by family several hours after the incident. At baseline, the patient is able to feed himself holding the spoon using the left hand. Following the fall beyond his baseline right hemiparesis, the patient has developed worsening left sided weakness, especially with respect to the left upper extremity. He is now unable to make a fist or hold on to objects. His workup here has included a CT scan of the brain, which revealed no acute traumatic injury or acute cerebrovascular accidents. CT angiography of the brain was also obtained, which revealed no acute vascular pathology. CT scan of the cervical spine reveals no acute fractures or dislocation. I was asked to evaluate the patient today to exclude other traumatic injuries. At the time of my evaluation, the patient is awake and alert. His sister was at bedside. His cervical spine was maintained in a cervical collar. The patient was complaining of residual back and right lateral neck pain. He denies any chest or abdominal pain. He denies any dyspnea or syncope. PAST MEDICAL HISTORY: Significant for multifocal cerebrovascular accidents with residual right hemiparesis. Other pertinent medical history includes type 2 diabetes mellitus, essential hypertension, and hyperlipidemia. PAST SURGICAL HISTORY: Significant for left [id number] amputation following work-related forklift accident. He is also status post drainage of neck abscess. FAMILY HISTORY: Pertinent for diabetes mellitus and essential hypertension. SOCIAL HISTORY: The patient is currently disabled. He has no cigarette smoking, ethanol, or illicit drug abuse aside from remote history of marijuana use. PRE-HOSPITAL MEDICATIONS: Includes simvastatin 10 mg p.o. nightly, lisinopril 20 mg p.o. daily, pioglitazone 30 mg p.o. daily, metformin 1000 mg p.o. b.i.d., Keppra 500 mg p.o. b.i.d., aspirin 325 mg p.o. daily and glipizide 5 mg p.o. b.i.d. ALLERGIES: THE PATIENT HAS NO KNOWN DRUG ALLERGIES. REVIEW OF SYSTEMS: Essentially unremarkable except as stated in past medical history and chief complaint. PHYSICAL EXAMINATION: GENERAL: Reveals a 58-year-old man with a previous history of cerebrovascular accident who has right hemiparesis, otherwise appears to be in no acute distress at the time of my evaluation. VITAL SIGNS: His vital signs today includes blood pressure of 103/58, pulse 86, respiratory rate is 15, temperature 99.3 degrees Fahrenheit, and oxygen saturation 97% on room air. HEENT: Reveals normocephalic and atraumatic. Pupils are equal, round, reactive to light and accommodation. NECK: He has no jugular venous distention noted. Cervical spine is nontender to palpation. He has slight tenderness in the right lateral neck soft tissue. He has no cervical neck tenderness to active or passive range of motion. CHEST: Chest wall is stable. No gross deformities or step-offs are present. HEART: Reveals regular rate and rhythm. No murmurs or gallops auscultated. LUNGS: Clear to auscultation bilaterally. Breathing, regular and nonlabored. ABDOMEN: Soft, nontender, nondistended. EXTREMITIES: Reveal 2+ bilateral radial and right pedal pulses present. Left BKA stump is healed. MUSCULOSKELETAL: Reveals 2/5 muscle strength in right upper extremity. He has 3/5 muscle strength in the left upper extremity. He is unable to make a fist. He has good deltoid and biceps function, but minimum intrinsic function of the left hand. His right upper extremity is contractured from previous stroke. Right lower extremity motor function is 2/5. NEURO: [place] Coma Scale otherwise is 15. LABORATORY FINDINGS: Today include a CBC with 5900 white blood cells, hemoglobin and hematocrit 10.3 and 29.8 respectively. Platelet count is 196,000. Metabolic profile; sodium 137, potassium 3.8, chloride is 107, bicarb is 21, BUN is 12, creatinine is 0.77, glucose 108. IMAGING DATA: I have personally reviewed all the previous cervical spine images, which are essentially unremarkable for any acute pathology. Brain MRI, which was obtained today reveals stable multiple foci cerebral infarctions. No acute pathology was evident. MRI of the cervical spine is remarkable for a broad-based disk osteophyte in C3-C4 and C4-C5 causing moderate to severe canal stenosis. Also noted is evidence of spinal cord edema at C5 and C6. There is no evidence of acute fractures present. MRI of the thoracic spine is unremarkable for any fractures or dislocation. IMPRESSIONS: 1. Status post fall. 2. Severe cervical spinal stenosis with associated central cord syndrome. 3. History of previous multifocal cerebral infarctions. 4. History of essential hypertension. 5. History of type 2 diabetes mellitus. RECOMMENDATIONS: 1. Cervical collar will be discontinued. 2. We will initiate physical and occupational therapy. 3. We will ask Neurosurgery to evaluate the patient with regard to the cervical spinal stenosis and associated central cord syndrome. 4. We will also ask PM and R to evaluate the patient eventually for possible inpatient rehabilitation post discharge. Above findings and plan has been discussed with the patient and his sister at bedside. I did answer their questions. Thank you again, Dr. Lyon, for allowing me the opportunity to participate in the care of this patient. Job ID: [id number]
--- NOTE | 2019-02-15 01:15 | CON ---
DATE OF TELEMEDICINE CONSULTATION WITH DIAMOND COKER: 02-14-19 CHIEF COMPLAINT: Possible stroke. HISTORY OF PRESENT ILLNESS: The patient's fiancee was in the room and was able to give me medical history. The patient was in sleep and around 7 or 8 a.m. this morning, he was rolling over and he thought he was further from the edge, but fell down and he was noted to have left-sided weakness by the ER physician. At baseline, he has slurred speech and right-sided weakness from a stroke 2 months ago and his left side had become weak since the fall and he is unable to use his left hand particularly. PREVIOUS MEDICAL HISTORY: Positive for acute CVA about 2 months ago and he also hypertension, hyperlipidemia, and diabetes. PREVIOUS SURGICAL HISTORY: Left below-knee amputation secondary to a forklift accident, status post drainage of a neck abscess. FAMILY HISTORY: Positive for diabetes in his brother. He has 2 brothers and 2 sisters. His father at 48. He was sick on the job and they think he had cancer. Mother is 73. She has type 1 diabetes. SOCIAL HISTORY: Lives in [place]. He is disabled. He has no history of alcohol or tobacco use. He does not use any drugs. He lives with his fiancee. CURRENT MEDICATIONS: 1. Simvastatin 10 mg per day. 2. Metformin 1000 mg b.i.d. 3. Glipizide 5 mg b.i.d. 4. Lisinopril 10 mg per day. 5. Aspirin 81 mg per day. 6. Pioglitazone 30 mg per day. ALLERGIES: NO KNOWN DRUG ALLERGIES. REVIEW OF SYSTEMS: PULMONARY: Negative for shortness of breath or cough. GASTROINTESTINAL: Negative for any nausea, vomiting, or diarrhea. GENITOURINARY: No increase in urinary frequency. NEUROLOGIC: Positive for CVA and left-sided weakness. DERMATOLOGIC: Negative for any rash. HEMATOLOGIC: Negative for bleeding diathesis or anemia. LABORATORY WORKUP: White count 5.9, hemoglobin 10.3, hematocrit 29.8, platelets 196. Chemistry; sodium 137, potassium 3.8, chloride 107, bicarb 21, BUN 12, creatinine 0.77, glucose 108. Cholesterol and lipid profile are negative. MRI of the brain was completed and he did not have an acute stroke. He does have chronic small-vessel ischemic changes, stable malacic and gliotic change involving the right frontoparietal region and he had a cervical spine MRI which showed degenerative changes of the C-spine, central T2 hyperintensity in the cervical cord at C5-6, favored to be due to edema. There is no evidence of cord expansion suggesting malignant process. No evidence of volume loss and thoracic spine MRI was also completed and there was no evidence of any thoracic spine fracture. He has congenitally foreshortened pedicle, therefore has decreased diameter of central spinal canal and no cord signal abnormality was noted. PHYSICAL EXAMINATION: VITAL SIGNS: Temperature 99.3, pulse 86, respiratory rate 15, O2 sats 97%, blood pressure 103/58. GENERAL APPEARANCE: Well-built, well-nourished man. He has a laceration in the right forehead and has left below-knee amputation. CHEST: Clear vesicular breathing. CARDIOVASCULAR: S1, S2 heard. No murmurs. ABDOMEN: Soft. NEUROLOGICAL EXAMINATION: Higher intellectual functions. Oriented to time, place, and person and appropriate conversation. Cranial nerves, pupils are 3 mm, briskly reactive to light bilaterally and no facial asymmetry noted. Normal sensation of face bilaterally and tongue midline. No atrophy noted. Motor examination, bulk normal, tone normal. Distal left lower extremity exam is not possible. Motor examination, strength was diminished on the right side. He has a contracture in the right upper extremity at the elbow and strength was 3/5 on the right side in the upper extremity and lower extremity was 2/5. He had difficulty elevating his right lower limb against gravity and left upper extremity proximal strength was 5/5, distal was 3/5. He had a wrist drop and deep tendon reflexes were absent. Muscle groups tested were deltoid, biceps, triceps, wrist extension and flexion, finger extension and flexion, iliopsoas, hamstrings, quadriceps, ankle dorsiflexion, plantar flexion on the right side and iliopsoas on the left side. Cerebellar, difficult to perform on the left, but in upper extremities, aodfao-jz-wejp was normal. Sensory was intact throughout. IMPRESSION: The patient is a 58-year-old man with a stroke and he developed left-sided weakness since the fall. His MRI does show a right parietofrontal infarct and he also has abnormalities in the MRI of the C-spine. He likely had a cord contusion. At this time, he does not have evidence for another acute stroke. RECOMMENDATIONS: Neurosurgery and trauma team to review his MRI C-spine for recommendations. Please have him follow up with Dr. Antonio as outpatient once he is discharged , so he can have EMG and nerve conduction study. Job ID: [id number]
--- NOTE | 2019-02-15 03:42 | CON ---
DATE OF CONSULTATION: HISTORY AND PHYSICAL ILLNESS: Mr. Hawikns is a 58-year-old male with past medical history of multiple ischemic strokes, left cpzuv-bir-lfqi amputation with right-sided paralysis and contractures, this is primarily in the right upper extremity, who was admitted to the hospital yesterday following an accident where he had rolled out of bed, striking his face on the ground. The patient had new left hand primarily weakness following this injury. The patient was admitted. He was brought in and imaging has been completed of his brain to workup for any new stroke. MRI was negative for new disease. However, MRI of the cervical spine was done showing significant stenosis with some edema within the spinal cord. Neurosurgery has been consulted. When I entered the patient's hospital room this evening, he is resting comfortably. He is easily arousable. He has a contracture of the right upper extremity, he is not moving his right lower extremity, below the knee amputation on the left, but has good strength and sensation in the left lower extremity. The patient can move the left upper extremity deltoids and biceps, weakness in triceps, and wrist extension, finger intrinsics, and finger extension are almost nonexistent. He does have normal sensation on the left. The patient does have some facial droop on the left as well, but is alert and oriented. REVIEW OF SYSTEMS: A 10-point review of systems has been completed and is negative other than stated in the above HPI. PAST MEDICAL HISTORY: Ischemic cardiovascular accident with residual right hemiparesis, hypertension, hyperlipidemia, and diabetes mellitus. PAST SURGICAL HISTORY: Left esuhw-xpx-owcb amputation secondary to forklift accident and status post drainage of a neck abscess. FAMILY HISTORY: Hypertension and diabetes. SURGICAL HISTORY: Lives in [place], who is disabled, has remote use of marijuana. No alcohol use. No tobacco use. He is a full code. MEDICATIONS: Simvastatin, metformin, glipizide, lisinopril, aspirin, and pioglitazone. PHYSICAL EXAMINATION: VITAL SIGNS: Temperature 98.4, heart rate 69, respirations 12, O2 saturations 96% on room air, blood pressure is 99/62. CONSTITUTIONAL: The patient does not appear to be in any visible distress. He is awake, alert, and oriented. He appears to be nontoxic, normotensive, and afebrile. HEENT: Head is normocephalic and atraumatic. Pupils are equal, round, and reactive to light. Extraocular movements are intact. Hearing is intact. Moist mucous membranes. NECK: There is no tenderness. The patient has normal range of motion to palpation. RESPIRATORY: Normal work of breathing on room air. Symmetric chest rise. EXTREMITIES: Left kweqc-tcn-hitp amputation. Good strength and sensation in hip flexion and hip extension. Right lower extremity; the patient has decreased movement due to paralysis. Upper extremities; contracture on the right upper extremity, and left upper extremity, the patient has deltoid and biceps strength which is 5/5, triceps strength 4-/5, wrist extension 3+/5, finger extension and finger intrinsics 1/5. There is normal sensation on the left upper extremity and lower extremity. NEUROLOGIC: The patient is awake, alert, and oriented x3. Speech is slightly slurred, but baseline. Attention and concentration, normal. IMAGING DATA: MRI of the cervical spine shows degenerative changes in the cervical spine. No evidence of fracture, central T2 hyperintensity involving cervical cord at C5-C6, there is significant stenosis at multiple levels. MRI of the thoracic spine has been completed, which shows no evidence of thoracic spine fracture, some congenital spinal cord narrowing, but no evidence of significant stenosis or cord compression. ASSESSMENT AND PLAN: Mr. Hawkins is a 58-year-old male with significant past medical history of cardiovascular accident, leaving him with right-sided paralysis, left- sided ushli-lvt-agal amputation, new injury, fall, possible cervical spinal cord injury this is a day and half old already. We will recommend starting steroids and we will consider possible surgical intervention tomorrow. We will need to discuss risks and benefits with the patient given his history and limitations following. If there are any questions, please contact the Neurosurgery Department. Job ID: [id number]
[2019-02-15] MEDS: Dexamethasone 4 MG TAB PO SCH ×3 (06:23→21:21)
--- NOTE | 2019-02-15 08:55 | PDOC.PN ---
- Subjective Encounter Start Date: 02/15/19 Encounter Start Time: 08:54 Feels ok. No specific complaints. - Objective Resuscitation Status - Order Detail: 02/13/19 16:45 Resuscitation Status Routine Resuscitation Status: FULL: Full Resuscitation Vital Signs & Weight: Vital Signs (12 hours) Temp Pulse Resp BP Pulse Ox 02/15/19 07:00 98.1 F 85 16 134/77 99 02/15/19 03:52 98.4 F 70 16 140/77 96 02/14/19 23:33 98.2 F 68 12 98/58 L 97 Weight Weight 152 lb 4 oz I&O: 02/14/19 02/15/19 02/16/19 06:59 06:59 06:59 Intake Total 200 1150 Output Total 300 Balance -100 1150 Result Diagrams: 02/14/19 05:59 02/14/19 05:59 Additional Labs: Accuchecks 02/15/19 02/14/19 02/14/19 05:44 21:01 16:52 POC Glucose 182 H 157 H 159 H 02/14/19 10:38 POC Glucose 146 H Phys Exam - Physical Examination Constitutional: NAD Respiratory: no wheezing, no rales, no rhonchi Cardiovascular: RRR, no significant murmur Gastrointestinal: soft, non-tender, no distention, positive bowel sounds Musculoskeletal: no edema L BKA R hemiplegia. L fingers non-functional. LUE weakness. Dx/Plan (1) Cord compression syndrome Code(s): G95.20 - UNSPECIFIED CORD COMPRESSION Status: Acute (2) History of CVA (cerebrovascular accident) Code(s): Z86.73 - PRSNL HX OF TIA (TIA), AND CEREB INFRC W/O RESID DEFICITS Status: Acute (3) History of left below knee amputation Code(s): Z89.512 - ACQUIRED ABSENCE OF LEFT LEG BELOW KNEE Status: Acute (4) DM2 (diabetes mellitus, type 2) Status: Chronic (5) Dyslipidemia Code(s): E78.5 - HYPERLIPIDEMIA, UNSPECIFIED Status: Chronic (6) HTN (hypertension) Code(s): I10 - ESSENTIAL (PRIMARY) HYPERTENSION Status: Chronic Qualifiers: - Plan * Cervical cord compression. * Discussed with Trauma and Neurosurg. * Plan is for surgery on . Patient was taking Plavix and took his last dose on . * On steroids. * Will change famotidine to PPI. * Will change the Heparin to Lovenox for DVT prophylaxis. Will not to stop on Sat am.
[2019-02-15] MEDS ORDERED: Enoxaparin Sodium 40 MG/0.4 ML SYRINGE SC SCH (09:00)
[2019-02-15] MEDS: Pioglitazone HCl 15 MG TAB PO SCH (09:50)
[2019-02-15] MEDS: Lisinopril 10 MG TAB PO SCH (09:50)
[2019-02-15] MEDS: metFORMIN 500 MG TAB PO SCH ×2 (09:50→17:19)
[2019-02-15] MEDS: Aspirin 325 MG TAB PO SCH (09:51)
[2019-02-15] MEDS: levETIRAcetam 500 MG TAB PO SCH ×2 (09:51→21:21)
--- NOTE | 2019-02-15 10:22 | PRG ---
DATE OF SERVICE: 02/15/2019 SUBJECTIVE: I personally interviewed and examined the patient and agreed with documentation of Divina Choudhury PA-C, dated 02/14/2019. Briefly, Yehuda Hawkins is a 58-year-old gentleman with a remote history of stroke leaving him with some right hemiparesis in the past. In October of this year, he was readmitted to [facility] with a new right pontine stroke resulting in some dysarthria and left-sided weakness. During that hospitalization, he was seen by our colleagues in Neurology, who started Plavix as a medication. That Plavix was continued in the outpatient rehabilitation setting and his family reports that he has been taking that at home. His last dose of the Plavix medication was . He fell in the early hours of the morning on Saturday, trying to get out of bed and because of the fall held any blood thinners. He has been in the hospital since Saturday (two days ago). Mr. Hawkins falls what brought him to the hospital and did notice worsening of his left-sided weakness. MR imaging of the cervical spine was done during this hospitalization revealing severe C4-C5 cord compression and moderate cord compression at C3-C4, with spondylosis elsewhere, but these two segments are the most compressed. There was T2 signal change within the cord and development of encephalomalacia already within the substance of the cord. For this reason, Neurosurgery was consulted. Since yesterday, blood pressures have been in the 90s to 150s. No fevers that I could see. On examination, Mr. Hawkins has upper motor neuron weakness on both sides, but he has a quite a dense right yamilex plegia from previous stroke. He has pathologically brisk reflexes. Even has an upper motor neuron spasticity of the vocal cords making his voice high-pitched and labored, but he can speak well. I think his cognitive function is unaffected. ASSESSMENT AND PLAN: I had a long discussion with Mr. Hawkins and his family. I recommended decompressing the cervical cord to prevent future deterioration. He may get some increase in function, but given the change within the substance of the cord, much of this is going to be permanent. However, he has more to lose and for that reason, I have recommended surgery. Surgery currently is unsafe given the recent Plavix use. Once the Plavix has had a weak to wear off, I think we can schedule surgery more safely. In the meantime, we will get flexion-extension views that are done gently to help plan surgical intervention. If there is other instability, we will change our surgical plan, but right now, I am planning an ACDF at C4-C5 and potentially at C3-C4 as well. or Saturday of this coming week or the following Saturday or Saturday seem reasonable. Job ID: [id number]
--- NOTE | 2019-02-15 13:03 | RAD ---
Cervical spine 2 views flexion and extension HISTORY: Preop planning. COMPARISON: None FINDINGS: Flexion-extension views of the cervical spine were forearm without evidence of abnormal mot ion. Moderate arthritic changes of the spine are seen with degenerative disc narrowing most pronounced at C4-5. IMPRESSION: Arthritic changes of the spine.
--- NOTE | 2019-02-15 20:19 | PRG ---
DATE OF SERVICE: 02/15/2019 SUBJECTIVE: Mr. Hawkins is a 58-year-old man, who was recently admitted following a fall off the bed. He has central cord syndrome. He remains awake and alert today. In fact, he is more interactive this morning with me. His pain is adequately controlled on oral analgesics. He is tolerating diet. He remains with right hemiparesis. His left arm is a little stronger today, although he is still unable to make a fist. OBJECTIVE: VITAL SIGNS: Include blood pressure 166/81, pulse 79, respiratory rate 16, temperature 97.8 degrees Fahrenheit, and oxygen saturation 98% on room air. HEART: Reveals regular rate and rhythm. No murmurs or gallops auscultated. LUNGS: Clear to auscultation bilaterally. Breathing, regular and nonlabored. NEUROLOGIC: Stable. IMPRESSION: 1. Multiple-level spinal stenosis with central cord syndrome, status post fall off a bed. 2. History of multiple cerebrovascular accidents. PLAN: The patient is otherwise hemodynamically stable. Neurosurgery plans ACDF for later part of this coming week. Job ID: [id number]
[2019-02-15] MEDS: Simvastatin 5 MG TAB PO SCH (21:21)
[2019-02-16] MEDS: Dexamethasone 4 MG TAB PO SCH ×3 (06:30→19:53)
--- NOTE | 2019-02-16 09:04 | PDOC.PN ---
- Subjective Encounter Start Date: 02/16/19 Encounter Start Time: 09:03 Patient seen and examined, no new issues. - Objective Resuscitation Status - Order Detail: 02/13/19 16:45 Resuscitation Status Routine Resuscitation Status: FULL: Full Resuscitation Vital Signs & Weight: Vital Signs (12 hours) Temp Pulse Resp BP Pulse Ox 02/16/19 07:20 98.1 F 66 14 125/69 98 02/16/19 04:38 97.9 F 72 16 137/70 96 02/16/19 01:01 98.9 F 77 18 108/65 95 Weight Weight 152 lb 4 oz I&O: 02/15/19 02/16/19 02/17/19 06:59 06:59 06:59 Intake Total 1150 540 Balance 1150 540 Result Diagrams: 02/14/19 05:59 02/14/19 05:59 Additional Labs: Accuchecks 02/16/19 02/15/19 02/15/19 05:26 20:53 16:56 POC Glucose 163 H 183 H 130 H 02/15/19 10:42 POC Glucose 153 H Phys Exam - Physical Examination Constitutional: NAD HEENT: PERRLA, moist MMs neck brace in place Respiratory: no wheezing, no rales, no rhonchi Cardiovascular: RRR, no significant murmur, no rub Gastrointestinal: soft, non-tender, no distention Musculoskeletal: no edema, pulses present Dx/Plan (1) History of CVA (cerebrovascular accident) Code(s): Z86.73 - PRSNL HX OF TIA (TIA), AND CEREB INFRC W/O RESID DEFICITS Status: Acute (2) Gait instability Code(s): R26.81 - UNSTEADINESS ON FEET Status: Acute (3) Hemiplegia affecting right dominant side Code(s): G81.91 - HEMIPLEGIA, UNSPECIFIED AFFECTING RIGHT DOMINANT SIDE Status : Acute Qualifiers: Hemiplegia type: spastic Hemiplegia etiology: late effect of cerebrovascular disease Cerebrovascular disease type: cerebral infarction Qualified Code(s): I69.351 - Hemiplegia and hemiparesis following cerebral infarction affecting right dominant side (4) Seizure Status: Acute (5) DM2 (diabetes mellitus, type 2) Status: Chronic (6) Dyslipidemia Code(s): E78.5 - HYPERLIPIDEMIA, UNSPECIFIED Status: Chronic (7) HTN (hypertension) Code(s): I10 - ESSENTIAL (PRIMARY) HYPERTENSION Status: Chronic Qualifiers: - Plan * cont current plan of care * patient on plavix, neuro sx intervention planned for later this week or early next week * stable otherwise * case and plan d/w patient and family at length, they understood and agreed with this plan.
[2019-02-16] MEDS: metFORMIN 500 MG TAB PO SCH ×2 (10:19→16:34)
[2019-02-16] MEDS: Aspirin 325 MG TAB PO SCH (10:19)
[2019-02-16] MEDS: Enoxaparin Sodium 40 MG/0.4 ML SYRINGE SC SCH (10:20)
[2019-02-16] MEDS: Pioglitazone HCl 15 MG TAB PO SCH (10:20)
[2019-02-16] MEDS: Lisinopril 10 MG TAB PO SCH (10:21)
[2019-02-16] MEDS: levETIRAcetam 500 MG TAB PO SCH ×2 (10:22→19:53)
[2019-02-16] MEDS ORDERED: Dextrose 50% Abboject 50 ML SYRINGE IVP PRN (15:09)
[2019-02-16] MEDS ORDERED: Dextrose 5% in Water 1,000 ML IV PRN (15:09)
[2019-02-16] MEDS: Simvastatin 5 MG TAB PO SCH (19:52)
[2019-02-16] MEDS: HYDROcodone/Acetaminophen 5/325 mg Tablet PO PRN (19:54)
--- NOTE | 2019-02-16 22:22 | PRG ---
DATE OF SERVICE: 02/16/2019 SUBJECTIVE: The patient remains on the stroke unit. He is doing well, had no issues overnight. He is awaiting decompression for his central cord syndrome. We are seeing him in consult and currently Neurosurgery is looking at either or Saturday for his procedure. PHYSICAL EXAMINATION: VITAL SIGNS: Temperature is 97.9, heart rate 62, blood pressure 141/76, respirations 20, oxygen saturation 97% on room air. GENERAL: The patient is resting comfortably in bed. He is awake and appears to be responsive. The patient does have significant previous CVA and loss of function related to that, primarily right hemiparesis. Left arm is essentially unchanged. The patient still has weakness of his intrinsic muscles of his hand. LUNGS: Clear to auscultation. HEART: Regular rate and rhythm. ABDOMEN: Soft with positive bowel sounds. EXTREMITIES: As above. LABORATORY DATA: There are no labs or radiographs reviewed this morning. ASSESSMENT/PLAN: 1. Status post fall. 2. Multiple level spinal stenosis with central cord syndromes. 3. History of multiple cerebrovascular accidents. PLAN: Plan will be to continue supportive care and await neurosurgical intervention. Job ID: [id number] MTDD
[2019-02-17] MEDS: Dexamethasone 4 MG TAB PO SCH ×3 (05:20→22:02)
[2019-02-17] MEDS: HumaLOG 300 UNITS/3 ML VIAL SC PRN (05:28)
[2019-02-17] MEDS: Enoxaparin Sodium 40 MG/0.4 ML SYRINGE SC SCH (08:43)
[2019-02-17] MEDS: Aspirin 325 MG TAB PO SCH (08:43)
[2019-02-17] MEDS: metFORMIN 500 MG TAB PO SCH ×2 (08:43→17:00)
[2019-02-17] MEDS: Pioglitazone HCl 15 MG TAB PO SCH (08:44)
[2019-02-17] MEDS: Lisinopril 10 MG TAB PO SCH (08:44)
[2019-02-17] MEDS: levETIRAcetam 500 MG TAB PO SCH ×2 (08:44→22:02)
--- NOTE | 2019-02-17 09:30 | PRG ---
DATE OF SERVICE: 02/17/2019 I saw Mr. Hawkins in his hospital room this morning. 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 We will plan surgical intervention on . order antibiotics. The medical team is ensuring that he is healthy as possible for general anesthesia and will get the operation done. It is an ACDF that is planned. Informed Consent: I discussed indications, risks, benefits, alternatives and expected outcomes from surgery. The risks discussed included, but were not limited to, bleeding, infection, CSF leak, nerve damage, spinal cord injury, paralysis, ventilator dependence, carotid artery injury, jugular vein injury, permanent dysphagia, esophageal injury, tracheal injury, and cardiopulmonary complications of anesthesia including . Mr. Hawkins understands the risks and wants to proceed. Job ID: [id number]
--- NOTE | 2019-02-17 10:45 | PDOC.PN ---
- Subjective Encounter Start Date: 02/17/19 Encounter Start Time: 10:44 Patient seen and examined, no new issues, family at bedside, all questions answered. - Objective Resuscitation Status - Order Detail: 02/13/19 16:45 Resuscitation Status Routine Resuscitation Status: FULL: Full Resuscitation Vital Signs & Weight: Vital Signs (12 hours) Temp Pulse Resp BP BP Pulse Ox 02/17/19 08:44 109/63 02/17/19 07:20 98.0 F 62 20 109/63 99 02/17/19 04:00 98.0 F 65 16 109/68 98 02/17/19 00:00 98.4 F 66 16 133/63 90 L Weight Weight 152 lb 4 oz I&O: 02/16/19 02/17/19 02/18/19 06:59 06:59 06:59 Intake Total 540 820 300 Balance 540 820 300 Result Diagrams: 02/14/19 05:59 02/14/19 05:59 Additional Labs: Accuchecks 02/17/19 02/16/19 02/16/19 05:26 20:44 16:45 POC Glucose 175 H 163 H 125 H 02/16/19 10:56 POC Glucose 197 H Phys Exam - Physical Examination Constitutional: NAD HEENT: PERRLA, moist MMs neck brace in place Respiratory: no wheezing, no rales Cardiovascular: RRR, no significant murmur, no rub Gastrointestinal: soft, non-tender, no distention, positive bowel sounds Musculoskeletal: pulses present, edema present Dx/Plan (1) History of CVA (cerebrovascular accident) Code(s): Z86.73 - PRSNL HX OF TIA (TIA), AND CEREB INFRC W/O RESID DEFICITS Status: Acute (2) Gait instability Code(s): R26.81 - UNSTEADINESS ON FEET Status: Acute (3) Hemiplegia affecting right dominant side Code(s): G81.91 - HEMIPLEGIA, UNSPECIFIED AFFECTING RIGHT DOMINANT SIDE Status : Acute Qualifiers: Hemiplegia type: spastic Hemiplegia etiology: late effect of cerebrovascular disease Cerebrovascular disease type: cerebral infarction Qualified Code(s): I69.351 - Hemiplegia and hemiparesis following cerebral infarction affecting right dominant side (4) Seizure Status: Acute (5) DM2 (diabetes mellitus, type 2) Status: Chronic (6) Dyslipidemia Code(s): E78.5 - HYPERLIPIDEMIA, UNSPECIFIED Status: Chronic (7) HTN (hypertension) Code(s): I10 - ESSENTIAL (PRIMARY) HYPERTENSION Status: Chronic Qualifiers: - Plan * pending neuro sx intervension * no changes in plan of care otherwise * cont current plan of care * case and plan d/w patient and family at length, they understood and agreed with this plan.
--- NOTE | 2019-02-17 17:17 | PRG ---
DATE OF SERVICE: 02/17/2019 This is Inna Lentz NP dictating a report for Dillan Lyon MD. SUBJECTIVE: This is a 58-year-old gentleman who remains on the stroke unit. The patient had no overnight events. The patient pending decompression for his central cord syndrome. The patient remains in an [place] collar. The patient continues to have left-sided weakness, the patient with chronic right-sided hemiparesis. OBJECTIVE: VITAL SIGNS: Blood pressure 109/63, SpO2 of 99% on room air, pulse 73, respirations 18, and temperature 98.0. GENERAL: Resting comfortably in bed, the patient awake and alert, in no acute distress. The patient has significant right hemiparesis status post CVA. The patient still has weakness to the left upper extremity. LUNGS: No respiratory distress, equal chest expansion. HEART: Regular rate and rhythm. ABDOMEN: Soft, nontender, and nondistended. EXTREMITIES: Left arm weakness, right chronic hemiparesis, left hsgnm-zbb-lyhb amputation. ASSESSMENT: 1. Status post fall. 2. Multiple level spinal stenosis with central cord syndrome. 3. History of multiple cerebrovascular accidents. PLAN: Continue supportive care. Continue physical and occupational therapy. Plan is for Neurosurgery to take the patient for an ACDF on or Saturday of this week. The plan has been discussed with the attending, who agrees. Job ID: [id number]
[2019-02-17] MEDS: Simvastatin 5 MG TAB PO SCH (22:02)
[2019-02-18] MEDS: Dexamethasone 4 MG TAB PO SCH ×3 (05:52→22:13)
[2019-02-18] MEDS: HumaLOG 300 UNITS/3 ML VIAL SC PRN (05:57)
[2019-02-18] MEDS: Enoxaparin Sodium 40 MG/0.4 ML SYRINGE SC SCH (09:46)
[2019-02-18] MEDS: Aspirin 325 MG TAB PO SCH (09:46)
[2019-02-18] MEDS: Pioglitazone HCl 15 MG TAB PO SCH (09:47)
[2019-02-18] MEDS: levETIRAcetam 500 MG TAB PO SCH ×2 (09:47→22:12)
[2019-02-18] MEDS: Lisinopril 10 MG TAB PO SCH (09:47)
[2019-02-18] MEDS: metFORMIN 500 MG TAB PO SCH ×2 (09:47→17:01)
--- NOTE | 2019-02-18 09:52 | PRG ---
DATE OF SERVICE: 02/18/2019 I saw Mr. Hawkins in his hospital room this morning. I discussed with him the plan for surgery tomorrow. I am planning on ACDF at C3-C4 and C4-C5. Flexion-extension views did not show any instability below that. I would like to get maximal decompression with diskectomy at both levels. We will make sure that during the anesthetic, the pressure does not dip terribly low and that we use careful positioning. We will keep him n.p.o. after midnight tonight and order perioperative antibiotics, to follow him to the operating room. Job ID: [id number]
[2019-02-18] MEDS: HYDROcodone/Acetaminophen 5/325 mg Tablet PO PRN (17:31)
[2019-02-18] MEDS ORDERED: Polyethylene Glycol 3350 17 GM Packet PO PRN (18:14)
[2019-02-18] MEDS ORDERED: Bisacodyl 5 MG TAB PO SCH (18:15)
--- NOTE | 2019-02-18 18:18 | PDOC.PN ---
- Subjective Encounter Start Date: 02/18/19 Encounter Start Time: 11:30 Subjective: pt up in bed no complains - Objective Resuscitation Status - Order Detail: 02/13/19 16:45 Resuscitation Status Routine Resuscitation Status: FULL: Full Resuscitation Vital Signs & Weight: Vital Signs (12 hours) Temp Pulse Pulse Pulse Resp BP BP 02/18/19 15:50 98.2 F 71 18 02/18/19 11:59 98.2 F 65 18 02/18/19 09:47 109/63 02/18/19 09:03 65 69 117/72 02/18/19 08:00 97.8 F 64 18 BP BP Pulse Ox 02/18/19 15:50 100/57 L 99 02/18/19 11:59 142/76 H 97 02/18/19 09:47 02/18/19 09:03 104/65 02/18/19 08:00 105/60 98 Weight Weight 152 lb 4 oz I&O: 02/17/19 02/18/19 02/19/19 06:59 06:59 06:59 Intake Total 820 1610 600 Balance 820 1610 600 Result Diagrams: 02/14/19 05:59 02/14/19 05:59 Additional Labs: Accuchecks 02/18/19 02/18/19 02/18/19 17:00 10:36 05:57 POC Glucose 92 178 H 187 H 02/17/19 19:47 POC Glucose 176 H Phys Exam - Physical Examination Neck: no nodes, no JVD, supple, full ROM Respiratory: no wheezing, no rales, no rhonchi, wheezing present, clear to auscultation bilateral Cardiovascular: RRR, no significant murmur, no rub, gallop, irregular Dx/Plan (1) History of CVA (cerebrovascular accident) Code(s): Z86.73 - PRSNL HX OF TIA (TIA), AND CEREB INFRC W/O RESID DEFICITS Status: Acute (2) Gait instability Code(s): R26.81 - UNSTEADINESS ON FEET Status: Acute - Plan pt to go for surgery in am -: will continue current treatment * . Review of Systems - Review of Systems Respiratory: negative: Cough, Dry, Shortness of Breath, Hemoptysis, SOB with Excertion, Pleuritic Pain, Sputum, Wheezing Cardiovascular: negative: chest pain, palpitations, orthopnea, paroxysmal nocturnal dyspnea, edema, light headedness, other - Medications/Allergies Allergies/Adverse Reactions: Allergies Allergy/AdvReac Type Severity Reaction Status Date / Time No Known Drug Allergies Allergy Verified 07/02/14 01:37 Medications: Current Medications Acetaminophen (Tylenol) 650 mg PO Q4H PRN PRN Reason: Headache/Fever/Mild Pain (1-3) Hydrocodone Bitart/Acetaminophen ([place] 5/325) 1 tab PO Q4H PRN PRN Reason: Moderate Pain (4-6) Last Admin: 02/16/19 19:54 Dose: 1 tab Hydrocodone Bitart/Acetaminophen ([place] 5/325) 2 tab PO Q4H PRN PRN Reason: Severe Pain (7-10) Last Admin: 02/18/19 17:31 Dose: 2 tab Aspirin (Aspirin) 325 mg PO QAM[facility] Last Admin: 02/18/19 09:46 Dose: 325 mg Dexamethasone (Decadron) 4 mg PO Q8HR [facility] Last Admin: 02/19/19 06:38 Dose: Not Given Dextrose/Water (Dextrose 50%) 25 gm IVP PRN PRN PRN Reason: HYPOGLYCEMIA PROTOCOL Enoxaparin Sodium (Lovenox) 40 mg SC 0900 [facility] Last Admin: 02/18/19 09:46 Dose: 40 mg Glipizide (Glucotrol Xl) 5 mg PO BID-[facility] Last Admin: 02/18/19 17:01 Dose: 5 mg Glucagon (Glucagon) 1 mg IM PRN PRN PRN Reason: HYPOGLYCEMIA PROTOCOL Cefazolin Sodium/Dextrose 2 gm (/ Device) 50 mls @ 100 mls/hr IVPB ONCALL-OR [facility] Stop: 02/19/19 23:59 Dextrose/Water (D5w) 1,000 mls @ 0 mls/hr IV INF PRN PRN Reason: HYPOGLYCEMIA PROTOCOL Insulin Human Lispro (Humalog) 0 units SC .MILD SLIDING SCALE PRN; Protocol PRN Reason: MILD SLIDING SCALE Last Admin: 02/18/19 05:57 Dose: 2 unit Levetiracetam (Keppra) 500 mg PO BID [facility] Last Admin: 02/18/19 22:12 Dose: 500 mg Lisinopril (Zestril) 10 mg PO DAILY [facility] Last Admin: 02/18/19 09:47 Dose: 10 mg Metformin HCl (Glucophage) 1,000 mg PO BID-WM [facility] Last Admin: 02/18/19 17:01 Dose: 1,000 mg Pantoprazole Sodium (Protonix) 40 mg PO DAILY [facility] Last Admin: 02/18/19 09:47 Dose: 40 mg Pioglitazone HCl (Actos) 30 mg PO DAILY [facility] Last Admin: 02/18/19 09:47 Dose: 30 mg Polyethylene Glycol (Miralax) 17 gm PO DAILY [facility] Polyethylene Glycol (Miralax) 17 gm PO DAILYPRN PRN PRN Reason: Constipation Senna/Docusate Sodium (Senokot S) 1 tab PO BID [facility] Last Admin: 02/18/19 22:13 Dose: 1 tab Simvastatin (Zocor) 10 mg PO HS [facility] Last Admin: 02/18/19 22:13 Dose: 10 mg Sodium Chloride (Flush - Normal Saline) 10 ml IVF PRN PRN PRN Reason: Saline Flush
[2019-02-18] MEDS ORDERED: Polyethylene Glycol 3350 17 GM Packet PO SCH (18:30)
[2019-02-18] MEDS: Senokot S 8.6-50 MG TAB PO SCH (22:13)
[2019-02-18] MEDS: Simvastatin 5 MG TAB PO SCH (22:13)
[2019-02-19] MEDS: Dexamethasone 4 MG TAB PO SCH ×2 (06:38→17:39)
[2019-02-19] MEDS ORDERED: Famotidine/PF 20 mg/2ml Vial ONE (07:06)
[2019-02-19] MEDS ORDERED: Thrombin 5000 UNITS/5 ML VIAL ONE (07:39)
[2019-02-19] MEDS ORDERED: Sodium Chloride 0.9% 10 ML ONE (07:39)
[2019-02-19] MEDS ORDERED: CEFAZOLIN 2 GM in Premix Bag 1 BAG IVPB SCH (08:00)
[2019-02-19] MEDS ORDERED: SUGAMMADEX SODIUM 500 MG/5 ML VIAL ONE (08:14)
[2019-02-19] MEDS ORDERED: Fentanyl 100 MCG/2 ML VIAL ONE ×2 (08:17→10:01)
[2019-02-19] MEDS ORDERED: Promethazine HCl 25 MG/ML VIAL IM PRN ×2 (11:25→11:36)
[2019-02-19] MEDS ORDERED: tiZANidine HCl 4 MG TAB PO PRN (11:25)
[2019-02-19] MEDS ORDERED: Ondansetron PF 4 MG/2 ML Vial IVP PRN (11:25)
[2019-02-19] MEDS ORDERED: Promethazine 25 MG TAB PO PRN (11:25)
[2019-02-19] MEDS ORDERED: Mag-Al 1200 mg/1200 mg/30 ML UDCUP PO PRN (11:25)
[2019-02-19] MEDS ORDERED: Bisacodyl 10 MG SUPP PR PRN (11:25)
[2019-02-19] MEDS ORDERED: Acetaminophen/Codeine 30-300mg Tablet PO PRN ×2 (11:25)
[2019-02-19] MEDS ORDERED: Morphine 4 MG/ML VIAL SLOW IVP PRN (11:25)
[2019-02-19] MEDS ORDERED: Milk Of Magnesia 30 ML UDCUP PO PRN (11:25)
[2019-02-19] MEDS ORDERED: diphenhydrAMINE 50 MG/ML VIAL IVP PRN (11:25)
[2019-02-19] MEDS ORDERED: diphenhydrAMINE 25 MG CAP PO PRN (11:25)
[2019-02-19] MEDS ORDERED: Meperidine HCl/PF 25 MG/ML VIAL SLOW IVP PRN (11:36)
[2019-02-19] MEDS ORDERED: Ondansetron HCl/PF 4 MG/2 ML Vial IVP PRN (11:36)
[2019-02-19] MEDS ORDERED: Promethazine HCl 25 MG/ML VIAL SLOW IVP PRN (11:36)
--- NOTE | 2019-02-19 11:57 | OP ---
DATE OF PROCEDURE: 02/19/2019 MANAGEMENT LEAD: Divina Choudhury PA-C PREOPERATIVE INDICATION: Prevent further neurological deterioration. PREOPERATIVE DIAGNOSIS: Cervical intervertebral disk disease with cord compression and severe myelopathy. POSTOPERATIVE DIAGNOSIS: Cervical intervertebral disk disease with cord compression and severe myelopathy. PROCEDURE PERFORMED: Anterior cervical diskectomy with intervertebral arthrodesis, and placement of intervertebral biomechanical device as well as anterior cervical plating at C3-C4 and C4-C5, local morselized autograft, morselized allograft, and operating microscope. PREOPERATIVE MEDICATION: Ancef 2 g IV. DRAIN NUMBER: Zero. DRAIN TYPE: None. DESCRIPTION OF PROCEDURE: The patient was brought to the operating room. General endotracheal anesthesia was induced keeping the neck in normal anatomic alignment. The patient was carefully positioned on the operating room table with his head supported by a gel-filled doughnut-shaped headrest. A lateral fluoro radiograph was used to plan our incision. The right side of the neck was sterilely prepped and draped. We opened our incision with a 10 blade knife and we controlled bleeding with bipolar cautery. We dissected sharply to the platysma and we cut this muscle in line with our incision. We continued our dissection medial to the sternocleidomastoid and lateral to the trachea and esophagus. We arrived at the prevertebral space and put a marker at C3-C4. We took a lateral fluoro radiograph to confirm the levels upon which we were operating. We then elevated the longus colli muscles off the anterior surface of C3, C4, and C5. Self-retaining retractors were placed beneath these muscles and distraction pins were placed at C3 and C5. We distracted across the intervening interspaces. We incised the interspaces with a 15 blade knife and removed disk contents using curettes and rongeurs. The operating microscope was brought into the field. Under microscopic magnification and using microsurgical techniques, we removed the remainder of the intervertebral disk. We accessed the ventral epidural space with a microcurette and we used Kerrison rongeurs to remove posterior osteophytes and posterior longitudinal ligament across the entire interspace at C4-C5 and at C3-C4. At the completion of our decompression, the dura was no longer indented. We then used curettes to prepare the endplates for grafting. We used a bone rasp to measure the height of each interspace to 6 mm. The operative microscope was taken out of the field. Two separate 6-mm PEEK intervertebral grafts were brought into the field. They were loaded with demineralized bone matrix and morselized autograft and advanced into the interspace under radiographic guidance to the appropriate depth. We removed our distraction pins. We brought a 28 mm anterior cervical plate into the field. We drilled steamboat pilot holes through the plate into the vertebral bodies at C3, C4, and C5 and we affixed the plate using 14 mm screws. We used fixed angle screws at C5 and variable angle screws at C4 and C3. We engaged the locking mechanism over each of the 6 screws. AP and lateral fluoro radiographs confirmed adequate positioning of our instrumentation. We irrigated copiously with bacitracin irrigation. We closed the wound in anatomical layers and we applied a sterile dressing. This was a clean case, no contamination. Job ID: [id number]
--- NOTE | 2019-02-19 12:01 | PDOC.PN ---
- Subjective Encounter Start Date: 02/19/19 Encounter Start Time: 12:00 Patient seen and examined, no new issues. - Objective Resuscitation Status - Order Detail: 02/13/19 16:45 Resuscitation Status Routine Resuscitation Status: FULL: Full Resuscitation Vital Signs & Weight: Vital Signs (12 hours) Temp Pulse Resp BP Pulse Ox 02/19/19 07:13 97.8 F 68 20 124/68 97 02/19/19 04:00 97.9 F 63 16 129/65 100 Weight Weight 152 lb 4 oz I&O: 02/18/19 02/19/19 02/20/19 06:59 06:59 06:59 Intake Total 1610 1050 Balance 1610 1050 Result Diagrams: 02/14/19 05:59 02/14/19 05:59 Additional Labs: Accuchecks 02/19/19 02/19/19 02/18/19 11:52 05:59 19:53 POC Glucose 165 H 163 H 196 H 02/18/19 17:00 POC Glucose 92 Phys Exam - Physical Examination Constitutional: NAD HEENT: PERRLA, moist MMs Neck: no nodes, no JVD Respiratory: no wheezing, no rales, no rhonchi Cardiovascular: RRR, no significant murmur, no rub Gastrointestinal: soft, non-tender, no distention, positive bowel sounds Musculoskeletal: pulses present, edema present (trace) Dx/Plan (1) History of CVA (cerebrovascular accident) Code(s): Z86.73 - PRSNL HX OF TIA (TIA), AND CEREB INFRC W/O RESID DEFICITS Status: Acute (2) Gait instability Code(s): R26.81 - UNSTEADINESS ON FEET Status: Acute (3) Hemiplegia affecting right dominant side Code(s): G81.91 - HEMIPLEGIA, UNSPECIFIED AFFECTING RIGHT DOMINANT SIDE Status : Acute Qualifiers: Hemiplegia type: spastic Hemiplegia etiology: late effect of cerebrovascular disease Cerebrovascular disease type: cerebral infarction Qualified Code(s): I69.351 - Hemiplegia and hemiparesis following cerebral infarction affecting right dominant side (4) Seizure Status: Acute (5) DM2 (diabetes mellitus, type 2) Status: Chronic (6) Dyslipidemia Code(s): E78.5 - HYPERLIPIDEMIA, UNSPECIFIED Status: Chronic (7) HTN (hypertension) Code(s): I10 - ESSENTIAL (PRIMARY) HYPERTENSION Status: Chronic Qualifiers: - Plan * Neuro sx intervention pending * no changes in plan of care
[2019-02-19] MEDS: CEFAZOLIN 2 GM in Premix Bag 1 BAG IVPB SCH ×3 (12:50→17:38)
[2019-02-19] MEDS: Aspirin 325 MG TAB PO SCH (13:03)
[2019-02-19] MEDS: Enoxaparin Sodium 40 MG/0.4 ML SYRINGE SC SCH (13:04)
[2019-02-19] MEDS: levETIRAcetam 500 MG TAB PO SCH ×2 (13:04→21:07)
[2019-02-19] MEDS: metFORMIN 500 MG TAB PO SCH ×2 (13:04→17:38)
[2019-02-19] MEDS: Lisinopril 10 MG TAB PO SCH (13:04)
[2019-02-19] MEDS: Polyethylene Glycol 3350 17 GM Packet PO SCH (13:05)
[2019-02-19] MEDS: Senokot S 8.6-50 MG TAB PO SCH ×2 (13:05→21:07)
[2019-02-19] MEDS: Pioglitazone HCl 15 MG TAB PO SCH (13:05)
[2019-02-19] MEDS ORDERED: Lidocaine 1% PF 5 ML VIAL ONE (15:50)
[2019-02-19] MEDS ORDERED: Dexamethasone 20 MG/5 ML VIAL ONE (15:50)
[2019-02-19] MEDS ORDERED: Metoclopramide HCl 10 MG/2 ML VIAL ONE (15:50)
[2019-02-19] MEDS ORDERED: PHENYLEPHRINE-NS 100 MCG/ML 10 ML SYRINGE ONE (15:50)
[2019-02-19] MEDS ORDERED: Rocuronium Bromide 10 MG/ML (10ML VIAL) ONE (15:50)
[2019-02-19] MEDS ORDERED: Ketorolac Tromethamine 30 MG/ML VIAL ONE (15:50)
[2019-02-19] MEDS ORDERED: PROPOFOL 200 MG/20 ML VIAL ONE (15:50)
[2019-02-19] MEDS ORDERED: Ondansetron PF 4 MG/2 ML Vial ONE (15:50)
[2019-02-19] MEDS: Sodium Chloride 0.9% 1,000 ML IV SCH (17:39)
[2019-02-19] MEDS: HumaLOG 300 UNITS/3 ML VIAL SC PRN (17:40)
--- NOTE | 2019-02-19 18:12 | PRG ---
DATE OF SERVICE: 02/19/2019 SUBJECTIVE: The patient was seen this afternoon postoperatively after receiving ACDF via Dr. Campoverde after central cord syndrome. The patient reported pain is well controlled. He had no difficulty swallowing or breathing. Reported stable right upper extremity weakness and reported left upper extremity weakness was not changed postoperatively. He had no complaints at that time. OBJECTIVE: VITAL SIGNS: Temperature 98.1, pulse 65, respirations 20, oxygen saturation 99% on room air, blood pressure 131/66. GENERAL: Well-appearing middle-aged male, lying in bed with no signs of acute distress. RESPIRATORY: Equal chest rise and fall. Clear breath sounds bilaterally. No signs of acute respiratory distress. CARDIAC: Regular rate and rhythm. No murmurs, gallops, or rubs. GI: Abdomen is soft, nontender, nondistended. EXTREMITIES: 2+ pulses in all extremities. No significant swelling noted. Right upper and lower extremity with severe paresis, which is unchanged from previous. Left upper extremity with 3/5 strength, which is not changed from previous. 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 NEUROLOGIC: GCS is 15. Gross motor and sensation have not changed from previously. LABORATORY FINDINGS: There are no new laboratory findings to discuss. DIAGNOSTIC FINDINGS: There are no new diagnostic findings to discuss. ASSESSMENT: 1. Status post fall from bed. 2. Central cord syndrome with left upper extremity weakness. 3. Cerebrovascular accident with residual right-sided weakness, hypertension, hyperlipidemia, diabetes, and left lower extremity [id number] amputation. RECOMMENDATIONS: Continue current pain control per primary team. Trauma Team discontinued the patient's full-dose aspirin and Lovenox. Primary team to discuss with Neurosurgery as the appropriate time to restart anticoagulation after spinal surgery. Trauma Surgery did also contact Neurosurgery Team to inform them of the patient's aspirin and Lovenox. Nursing was also informed that aspirin and Lovenox would be held until Neurosurgery and hospitalist team were in agreement as to when is the appropriate time to restart the medications. The patient was discussed with Dr. Herrera this afternoon postop. Job ID: [id number]
[2019-02-19] MEDS: Simvastatin 5 MG TAB PO SCH (21:07)
[2019-02-20] MEDS: CEFAZOLIN 2 GM in Premix Bag 1 BAG IVPB SCH (00:24)
[2019-02-20] MEDS: HYDROcodone/Acetaminophen 5/325 mg Tablet PO PRN ×3 (02:55→21:17)
[2019-02-20] MEDS: Dexamethasone 4 MG TAB PO SCH ×3 (02:56→17:44)
[2019-02-20 05:43] LABS: #Lymphocytes 2.2 thou/uL (1.20-3.40); #Monocytes 0.8 thou/uL (0.11-0.59); #Neutrophils 7.5 thou/uL (1.40-6.50); %Basophils 0.1 % (0.0-1.0); %Eosinophils 0.5 % (0.0-10.0); %Lymphocytes 21.2 % (21.0-51.0); %Monocytes 7.4 % (0.0-10.0); %Neutrophils 70.9 % (42.0-75.0); Hemoglobin 9.7 g/dL (14.0-18.0); Mean Corpuscular HGB CONC 33.5 g/dL (32.0-36.0); Mean Corpuscular Hemoglobin 29.3 pg (27.0-31.0); Mean Corpuscular Volume 87.4 fL (78.0-98.0); Mean Platelet Volume 8.7 fL (7.4-10.4); Platelet Count 186 thou/uL (130-400); RBC Distribution Width 13.1 % (11.5-14.5); White Blood Cell (WBC) Count 10.5 thou/uL (4.8-10.8)
[2019-02-20 05:44] LABS: MDiff Complete? YES
[2019-02-20 05:48] LABS: Anion Gap 12 mmol/L (10-20); BUN (Urea Nitrogen) 26 mg/dL (8.4-25.7); Calc. Creatinine Clearance 87 mL/min (70-130); Calcium 8.5 mg/dL (7.8-10.44); Carbon Dioxide 22 mmol/L (22-29); Chloride 110 mmol/L (98-107); Estimated GFR-MDRD Greater than 90; Glucose 146 mg/dL (70-105); Magnesium 1.2 mg/dL (1.6-2.6); Phosphorus 4.7 mg/dL (2.3-4.7); Potassium 4.3 mmol/L (3.5-5.1); Sodium 140 mmol/L (136-145)
--- NOTE | 2019-02-20 07:22 | PRG ---
DATE OF SERVICE: 02/20/2019 Mr. Hawkins is one day out from a two-level ACDF for severe cord compression and myelopathy. He does not feel any worse than he did prior to surgery. He does not notice significant improvement, either. Mr. Hawkins has had no change in his voice or swallowing. I do not see any fevers recorded. The other vital signs have been stable overnight. His neurological examination is exactly as it was with a combination of some cervical spondylotic myelopathy as well as extremity dysfunction from prior strokes. There has been no significant change since before surgery. Mr. Hawkins is happy at the operation. Without decompression of the cord, things would slowly get worse over time and now we have prevented that. With enough therapy and time, he could see some modest improvement, but certainly none have returned to normal. Mr. Hawkins can shower tomorrow. The bandage can come off later today or tomorrow morning. He can be transferred to inpatient rehabilitation or nursing facility any time. We will follow up in 2 weeks. Job ID: [id number]
[2019-02-20] MEDS ORDERED: Cepastat Lozenges 1 LOZ PO PRN (07:48)
[2019-02-20] MEDS: Polyethylene Glycol 3350 17 GM Packet PO SCH (09:27)
[2019-02-20] MEDS: metFORMIN 500 MG TAB PO SCH ×2 (09:27→17:44)
[2019-02-20] MEDS: Pioglitazone HCl 15 MG TAB PO SCH (09:27)
[2019-02-20] MEDS: Lisinopril 10 MG TAB PO SCH (09:28)
[2019-02-20] MEDS: Senokot S 8.6-50 MG TAB PO SCH ×2 (09:28→21:18)
[2019-02-20] MEDS: levETIRAcetam 500 MG TAB PO SCH ×2 (09:28→21:17)
[2019-02-20] MEDS: Aspirin 325 MG TAB PO SCH (09:28)
[2019-02-20] MEDS: Sodium Chloride 0.9% 1,000 ML IV SCH ×2 (09:30→21:24)
--- NOTE | 2019-02-20 10:40 | PRG ---
DATE OF SERVICE: SUBJECTIVE: The patient is a 58-year-old gentleman with history of CVA, hypertension, coming to evaluate of weakness of left hand after fall. His new symptoms is unable to make a fist on the left hand. The patient was consulted by Neurosurgery, who suggested decompression of cervical spine surgery later this week. The patient has been doing well and no events overnight. He is awaiting decompression of his central cord syndrome. He has no complaint of pain, shortness of breath, or fever. He is working with the Physical Therapy and he is able to tolerate a regular diet. OBJECTIVE: VITAL SIGNS: Temperature 98, pulse 71, respiratory rate 18, O2 saturation 99% on room air, blood pressure 100/57. GENERAL: The patient's mental status is at his baseline. He is able to follow commands. GCS is 14. LUNGS: Clear bilaterally. HEART: Regular rate and rhythm. ABDOMEN: Soft and nondistended. EXTREMITIES: He has hemiparesis of lower right extremity. Strength of right arm is 1/5; left arm, the patient is unable to make a fist . ASSESSMENT AND PLAN: Status post fall, multiple level spinal stenosis with central cord syndrome, history of multiple cerebrovascular accidents. Plan will be to continue supportive care and await for neurosurgical intervention. Job ID: [id number] [facility]
[2019-02-20] MEDS: HumaLOG 300 UNITS/3 ML VIAL SC PRN ×2 (11:44→17:45)
[2019-02-20] MEDS: Magnesium 2 GM/50 ML 2 GM in Premix Bag 1 BAG IVPB SCH ×2 (11:45→13:25)
--- NOTE | 2019-02-20 12:36 | PDOC.PN ---
- Subjective Encounter Start Date: 02/20/19 Encounter Start Time: 12:34 Patient seen and examined, no new issues. - Objective Resuscitation Status - Order Detail: 02/13/19 16:45 Resuscitation Status Routine Resuscitation Status: FULL: Full Resuscitation Vital Signs & Weight: Vital Signs (12 hours) Temp Pulse Pulse Pulse Resp BP BP 02/20/19 12:02 98.8 F 74 14 02/20/19 09:04 67 65 132/60 127/71 02/20/19 07:46 98 F 64 20 02/20/19 03:06 97.4 F L 66 12 BP BP Pulse Ox 02/20/19 12:02 112/61 98 02/20/19 09:04 02/20/19 07:46 129/69 97 02/20/19 03:06 131/68 97 Weight Weight 152 lb 4 oz I&O: 02/19/19 02/20/19 02/21/19 06:59 06:59 06:59 Intake Total 1050 1095 Balance 1050 1095 Result Diagrams: 02/20/19 04:47 02/20/19 04:47 Additional Labs: Accuchecks 02/20/19 02/20/19 02/19/19 10:44 04:49 21:48 POC Glucose 227 H 151 H 192 H 02/19/19 16:42 POC Glucose 186 H Phys Exam - Physical Examination Constitutional: NAD HEENT: PERRLA, moist MMs Neck: no nodes, no JVD Respiratory: no wheezing, no rales, no rhonchi Cardiovascular: RRR, no significant murmur, no rub Gastrointestinal: soft, non-tender, no distention, positive bowel sounds Musculoskeletal: no edema, pulses present Dx/Plan (1) History of CVA (cerebrovascular accident) Code(s): Z86.73 - PRSNL HX OF TIA (TIA), AND CEREB INFRC W/O RESID DEFICITS Status: Acute (2) Gait instability Code(s): R26.81 - UNSTEADINESS ON FEET Status: Acute (3) Hemiplegia affecting right dominant side Code(s): G81.91 - HEMIPLEGIA, UNSPECIFIED AFFECTING RIGHT DOMINANT SIDE Status : Acute Qualifiers: Hemiplegia type: spastic Hemiplegia etiology: late effect of cerebrovascular disease Cerebrovascular disease type: cerebral infarction Qualified Code(s): I69.351 - Hemiplegia and hemiparesis following cerebral infarction affecting right dominant side (4) Seizure Status: Acute (5) DM2 (diabetes mellitus, type 2) Status: Chronic (6) Dyslipidemia Code(s): E78.5 - HYPERLIPIDEMIA, UNSPECIFIED Status: Chronic (7) HTN (hypertension) Code(s): I10 - ESSENTIAL (PRIMARY) HYPERTENSION Status: Chronic Qualifiers: - Plan * pending placement * cont current plan of care for now * medically stable to resume antiplatet drugs once cleared by neuro sx * no other changes in plan of care * CM consulted for placement * case and plan d/w patient at length, he understood and agreed with this plan.
--- NOTE | 2019-02-20 16:06 | PRG ---
DATE OF SERVICE: 02/20/2019 SUBJECTIVE: The patient was seen this morning lying in bed. Physical Therapy had just arrived to his room. He is postoperative day 1 after C-spine ACDF. He reports pain is well controlled. He has not had breakfast yet as he needs help with feeding. He slept well overnight. He reports that he has some mild improvement in the function of his left upper extremity. Otherwise, he denies nausea, vomiting, and diarrhea at this time. OBJECTIVE: VITAL SIGNS: Temperature 98, pulse 64, respirations 20, oxygen saturation 97% on room air, blood pressure 127/69. GENERAL: Elderly male, lying in bed with no signs of acute distress. PULMONARY: Equal chest rise and fall. Clear breath sounds bilaterally. No signs of acute respiratory distress. CARDIAC: Regular rate and rhythm. No murmurs, gallops, or rubs. GI: Abdomen is soft, nontender, nondistended. EXTREMITIES: 2+ pulses in all extremities. No significant swelling noted. Right upper and lower extremity with severe paresis which is unchanged from previous. Left upper extremity with 3 to 4/5 strength, which is mildly improved from yesterday. 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 NEUROLOGIC: GCS is 15. Gross motor and sensation have not changed from previous exam. LABORATORY FINDINGS: White count 10.5, hemoglobin 9.7, hematocrit 28.9, platelets 186. Sodium 140, potassium 4.3, chloride 110, carbon dioxide 22, BUN 26, creatinine 0.91, glucose 164, phos 4.2, magnesium 1.2. DIAGNOSTIC FINDINGS: There are no new diagnostic findings to report. ASSESSMENT: 1. Status post fall from bed. 2. Central cord syndrome with left hand weakness. 3. History of hypertension, cerebrovascular accident with residual right-sided weakness, hyperlipidemia, diabetes, and left BKA. PLAN: Continue with current pain regimen and diet. The patient to work with Physical and Occupational Therapy today. We have placed a rehab screening as it is likely he will not be able to return home. Physical Therapy to assess and make recommendations for rehab versus a skilled facility. We will coordinate the discharge with Case Management at this time. We will also replace his magnesium. The patient was seen and examined by Dr. Herrera and myself this morning during rounds. Job ID: [id number]
[2019-02-20] MEDS: Simvastatin 5 MG TAB PO SCH (21:16)
[2019-02-21] MEDS: Dexamethasone 4 MG TAB PO SCH ×3 (03:01→17:43)
[2019-02-21 05:46] LABS: Anion Gap 10 mmol/L (10-20); BUN (Urea Nitrogen) 16 mg/dL (8.4-25.7); Calc. Creatinine Clearance 112 mL/min (70-130); Calcium 8.3 mg/dL (7.8-10.44); Carbon Dioxide 24 mmol/L (22-29); Chloride 111 mmol/L (98-107); Estimated GFR-MDRD Greater than 90; Glucose 123 mg/dL (70-105); Magnesium 1.8 mg/dL (1.6-2.6); Potassium 4.2 mmol/L (3.5-5.1); Sodium 141 mmol/L (136-145)
[2019-02-21] MEDS: Polyethylene Glycol 3350 17 GM Packet PO SCH (09:31)
[2019-02-21] MEDS: Senokot S 8.6-50 MG TAB PO SCH ×2 (09:31→19:51)
[2019-02-21] MEDS: Lisinopril 10 MG TAB PO SCH (09:32)
[2019-02-21] MEDS: Aspirin 325 MG TAB PO SCH (09:32)
[2019-02-21] MEDS: metFORMIN 500 MG TAB PO SCH ×2 (09:32→17:43)
[2019-02-21] MEDS: levETIRAcetam 500 MG TAB PO SCH ×2 (09:32→19:51)
[2019-02-21] MEDS: Pioglitazone HCl 15 MG TAB PO SCH (09:33)
[2019-02-21] MEDS: HYDROcodone/Acetaminophen 5/325 mg Tablet PO PRN (09:37)
--- NOTE | 2019-02-21 11:33 | PDOC.PN ---
- Subjective Encounter Start Date: 02/21/19 Encounter Start Time: 11:31 Patient seen and examined, no new issues. - Objective Resuscitation Status - Order Detail: 02/13/19 16:45 Resuscitation Status Routine Resuscitation Status: FULL: Full Resuscitation Vital Signs & Weight: Vital Signs (12 hours) Temp Pulse Pulse Pulse Resp BP BP 02/21/19 09:54 73 79 106/65 02/21/19 09:32 127/68 02/21/19 08:00 98.5 F 63 20 02/21/19 04:00 98.6 F 70 18 02/21/19 00:00 98.5 F 63 19 BP BP Pulse Ox 02/21/19 09:54 104/64 02/21/19 09:32 02/21/19 08:00 127/68 99 02/21/19 04:00 106/51 L 99 02/21/19 00:00 128/60 98 Weight Weight 152 lb 4 oz I&O: 02/20/19 02/21/19 02/22/19 06:59 06:59 06:59 Intake Total 1095 1777 300 Output Total 0 Balance 1095 1777 300 Result Diagrams: 02/20/19 04:47 02/21/19 05:00 Additional Labs: Accuchecks 02/21/19 02/21/19 02/20/19 10:39 05:50 19:33 POC Glucose 141 H 124 H 141 H 02/20/19 16:53 POC Glucose 184 H Phys Exam - Physical Examination Constitutional: NAD HEENT: PERRLA, moist MMs Neck: no nodes, no JVD Respiratory: no wheezing, no rales Cardiovascular: RRR, no significant murmur, no rub Gastrointestinal: soft, non-tender, no distention, positive bowel sounds Musculoskeletal: no edema, pulses present Dx/Plan (1) History of CVA (cerebrovascular accident) Code(s): Z86.73 - PRSNL HX OF TIA (TIA), AND CEREB INFRC W/O RESID DEFICITS Status: Acute (2) Gait instability Code(s): R26.81 - UNSTEADINESS ON FEET Status: Acute (3) Hemiplegia affecting right dominant side Code(s): G81.91 - HEMIPLEGIA, UNSPECIFIED AFFECTING RIGHT DOMINANT SIDE Status : Acute Qualifiers: Hemiplegia type: spastic Hemiplegia etiology: late effect of cerebrovascular disease Cerebrovascular disease type: cerebral infarction Qualified Code(s): I69.351 - Hemiplegia and hemiparesis following cerebral infarction affecting right dominant side (4) Seizure Status: Acute (5) DM2 (diabetes mellitus, type 2) Status: Chronic (6) Dyslipidemia Code(s): E78.5 - HYPERLIPIDEMIA, UNSPECIFIED Status: Chronic (7) HTN (hypertension) Code(s): I10 - ESSENTIAL (PRIMARY) HYPERTENSION Status: Chronic Qualifiers: - Plan * pending placement * cont current plan of care * DC once placement arranged
--- NOTE | 2019-02-21 13:04 | PRG ---
DATE OF SERVICE: 02/21/2019 SUBJECTIVE: The patient was seen this morning, lying in bed, napping. He was easily arousable and reported his pain is well controlled. Did state that he had a little bit of difficulty swallowing since his surgery. He was seen by speech language pathology, who recommended a modified diet. Nursing reported adequate p.o. and liquid intake. The patient is continued to work with Physical and Occupational Therapy and has no other complaints at this time. PHYSICAL EXAMINATION: VITAL SIGNS: Temperature 98.8, pulse 64, respirations 20, oxygen saturation 100% on room air, and blood pressure 106/61. GENERAL: Middle-aged male, lying in bed with no signs of acute distress. PULMONARY: Equal chest rise and fall. Clear breath sounds bilaterally. No signs of acute respiratory distress. CARDIAC: Regular rate and rhythm. No murmurs, gallops, or rubs. GI: Abdomen is soft, nontender, and nondistended. EXTREMITIES: 2+ pulses in all extremities. No significant swelling noted. Right upper and lower extremity with severe paresis, which is unchanged from previous. Left upper extremity with 3 to 4/5 strength, which is improved since surgery. 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 NEUROLOGIC: GCS is 15. Gross motor and sensation are intact and unchanged from previous exam. LABORATORY FINDINGS: Sodium 141, potassium 4.2, chloride 111, carbon dioxide 24, BUN 16, creatinine 0.71, glucose 132, and magnesium 1.8. DIAGNOSTIC FINDINGS: There are no new diagnostic findings to report. ASSESSMENT: 1. Status post fall from bed. 2. Central cord syndrome with left hand weakness, improving. 3. History of hypertension, cerebrovascular accident with residual right-sided weakness, hyperlipidemia, diabetes, and left below-knee amputation. PLAN: Continue the patient's current pain regimen and diet. We will discontinue normal saline today as the patient is taking adequate p.o. per nursing. The patient is to continue work with physical and occupational therapy. Speech language pathology is also evaluating the patient. The patient has a rehab screen pending. Trauma Surgery Team will sign off at this time. If new concerns or questions arise, please feel free to contact us. The patient was seen and examined by Dr. Herrera and myself this morning during rounds. Job ID: [id number]
[2019-02-21] MEDS: HumaLOG 300 UNITS/3 ML VIAL SC PRN (17:43)
[2019-02-21] MEDS: Simvastatin 5 MG TAB PO SCH (19:51)
--- NOTE | 2019-02-21 22:18 | PRG ---
DATE OF SERVICE: SUBJECTIVE: Ross is now two days status post anterior cervical diskectomy and fusion for cervical spondylitic myelopathy. He continues to recover from surgery as he has residual deficits from his myelopathy. Neurosurgical plan will be one of ongoing supportive care and disposition planning towards rehab or intermediate. Job ID: [id number] [facility]
[2019-02-22] MEDS: Dexamethasone 4 MG TAB PO SCH ×3 (01:51→18:07)
[2019-02-22] MEDS: HYDROcodone/Acetaminophen 5/325 mg Tablet PO PRN (01:52)
[2019-02-22] MEDS: HumaLOG 300 UNITS/3 ML VIAL SC PRN ×2 (05:50→18:07)
[2019-02-22] MEDS: Pioglitazone HCl 15 MG TAB PO SCH (08:18)
[2019-02-22] MEDS: metFORMIN 500 MG TAB PO SCH ×2 (08:18→16:38)
[2019-02-22] MEDS: Aspirin 325 MG TAB PO SCH (08:19)
[2019-02-22] MEDS: Senokot S 8.6-50 MG TAB PO SCH ×2 (08:19→20:01)
[2019-02-22] MEDS: levETIRAcetam 500 MG TAB PO SCH ×2 (08:19→20:01)
[2019-02-22] MEDS: Polyethylene Glycol 3350 17 GM Packet PO SCH (08:20)
[2019-02-22] MEDS: Lisinopril 10 MG TAB PO SCH (08:21)
--- NOTE | 2019-02-22 10:56 | PRG ---
DATE OF SERVICE: 02/22/2019 Mr. Hawkins is resting comfortably in his bed. He is wearing a cervical spine collar. He reports minimal to no pain. He also reports slight improvement in the function of his upper extremities. Job ID: [id number]
--- NOTE | 2019-02-22 19:08 | PDOC.PN ---
- Subjective Encounter Start Date: 02/22/19 Encounter Start Time: 08:20 Pt seen for followup re: spinal stenosis. Says he feels better. - Objective Resuscitation Status - Order Detail: 02/13/19 16:45 Resuscitation Status Routine Resuscitation Status: FULL: Full Resuscitation Vital Signs & Weight: Vital Signs (12 hours) Temp Pulse Resp BP BP BP Pulse Ox 02/22/19 16:16 99.3 F 67 16 123/74 99 02/22/19 11:30 98.6 F 65 18 125/69 98 02/22/19 08:21 113/69 02/22/19 07:50 96 02/22/19 07:42 98.3 F 67 20 111/69 96 Weight Weight 152 lb 4 oz I&O: 02/21/19 02/22/19 02/23/19 06:59 06:59 06:59 Intake Total 2192 790 6056 Output Total 0 Balance 8313 982 5766 Result Diagrams: 02/20/19 04:47 02/21/19 05:00 Additional Labs: Accuchecks 02/22/19 02/22/19 02/22/19 16:20 11:29 05:33 POC Glucose 174 H 140 H 161 H 02/21/19 20:31 POC Glucose 150 H Phys Exam - Physical Examination Constitutional: NAD HEENT: moist MMs Neck: supple Respiratory: clear to auscultation bilateral Cardiovascular: RRR Gastrointestinal: soft s/p L BKA R hemiparesis Psychiatric: normal affect Dx/Plan (1) Cord compression syndrome Code(s): G95.20 - UNSPECIFIED CORD COMPRESSION Status: Acute Comment: s/p surgery, slowly imptoving (2) DM2 (diabetes mellitus, type 2) Status: Chronic Comment: reasonable controlled, continue accuchecks and insulin sliding scale (3) Dyslipidemia Code(s): E78.5 - HYPERLIPIDEMIA, UNSPECIFIED Status: Chronic Comment: continue simvastatin (4) HTN (hypertension) Code(s): I10 - ESSENTIAL (PRIMARY) HYPERTENSION Status: Chronic Qualifiers: Comment: controlled - Plan * . Review of Systems - Review of Systems Cardiovascular: negative: chest pain, palpitations, orthopnea, paroxysmal nocturnal dyspnea, edema, light headedness Gastrointestinal: negative: Nausea, Vomiting, Abdominal Pain, Diarrhea, Constipation, Melena, Hematochezia Neurological: Weakness - Medications/Allergies Allergies/Adverse Reactions: Allergies Allergy/AdvReac Type Severity Reaction Status Date / Time No Known Drug Allergies Allergy Verified 07/02/14 01:37 Medications: Current Medications Acetaminophen (Tylenol) 650 mg PO Q4H PRN PRN Reason: Headache/Fever/Mild Pain (1-3) Acetaminophen/Codeine Phosphate (Tylenol #3) 1 tab PO Q3H PRN PRN Reason: Mild Pain (1-3) Acetaminophen/Codeine Phosphate (Tylenol #3) 2 tab PO Q3H PRN PRN Reason: Moderate Pain (4-6) Hydrocodone Bitart/Acetaminophen ([place] 5/325) 1 tab PO Q4H PRN PRN Reason: Moderate Pain (4-6) Last Admin: 02/22/19 01:52 Dose: 1 tab Hydrocodone Bitart/Acetaminophen ([place] 5/325) 2 tab PO Q4H PRN PRN Reason: Severe Pain (7-10) Last Admin: 02/21/19 09:37 Dose: 2 tab Al Hydroxide/Mg Hydroxide (Maalox) 30 ml PO Q4H PRN PRN Reason: Indigestion Aspirin (Aspirin) 325 mg PO DAILY [facility] Last Admin: 02/22/19 08:19 Dose: 325 mg Bisacodyl (Dulcolax) 10 mg MT Q12H PRN PRN Reason: Constipation Last Admin: 02/20/19 09:39 Dose: 10 mg Dexamethasone (Decadron) 4 mg PO 0300,1100,1900 [facility] Last Admin: 02/22/19 18:07 Dose: 4 mg Dextrose/Water (Dextrose 50%) 25 gm IVP PRN PRN PRN Reason: HYPOGLYCEMIA PROTOCOL Diphenhydramine HCl (Benadryl) 25 mg IVP Q6H PRN PRN Reason: Itching Diphenhydramine HCl (Benadryl) 25 mg PO Q6H PRN PRN Reason: Itching Glipizide (Glucotrol Xl) 5 mg PO BID[facility] Last Admin: 02/22/19 16:38 Dose: 5 mg Glucagon (Glucagon) 1 mg IM PRN PRN PRN Reason: HYPOGLYCEMIA PROTOCOL Dextrose/Water (D5w) 1,000 mls @ 0 mls/hr IV INF PRN PRN Reason: HYPOGLYCEMIA PROTOCOL Insulin Human Lispro (Humalog) 0 units SC .MILD SLIDING SCALE PRN; Protocol PRN Reason: MILD SLIDING SCALE Last Admin: 02/22/19 18:07 Dose: 2 unit Levetiracetam (Keppra) 500 mg PO BID [facility] Last Admin: 02/22/19 08:19 Dose: 500 mg Lisinopril (Zestril) 10 mg PO DAILY [facility] Last Admin: 02/22/19 08:21 Dose: 10 mg Magnesium Hydroxide (Milk Of Magnesium) 30 ml PO Q12H PRN PRN Reason: Constipation Metformin HCl (Glucophage) 1,000 mg PO BID-[facility] Last Admin: 02/22/19 16:38 Dose: 1,000 mg Morphine Sulfate (Morphine) 2 mg SLOW IVP Q1H PRN PRN Reason: Moderate Breakthrough Pain Morphine Sulfate (Morphine) 4 mg SLOW IVP Q1H PRN PRN Reason: Severe Breakthrough Pain Ondansetron HCl (Zofran) 4 mg IVP DAILYPRN PRN PRN Reason: Nausea Pantoprazole Sodium (Protonix) 40 mg PO DAILY [facility] Last Admin: 02/22/19 08:19 Dose: 40 mg Pioglitazone HCl (Actos) 30 mg PO DAILY [facility] Last Admin: 02/22/19 08:18 Dose: 30 mg Polyethylene Glycol (Miralax) 17 gm PO DAILY [facility] Last Admin: 02/22/19 08:20 Dose: 17 gm Polyethylene Glycol (Miralax) 17 gm PO DAILYPRN PRN PRN Reason: Constipation Promethazine HCl (Phenergan) 12.5 mg PO Q4H PRN PRN Reason: Nausea/Vomiting Promethazine HCl (Phenergan) 12.5 mg IM Q4H PRN PRN Reason: Nausea/Vomiting Senna/Docusate Sodium (Senokot S) 1 tab PO BID [facility] Last Admin: 02/22/19 08:19 Dose: 1 tab Simvastatin (Zocor) 10 mg PO HS [facility] Last Admin: 02/21/19 19:51 Dose: 10 mg Sodium Chloride (Flush - Normal Saline) 10 ml IVF PRN PRN PRN Reason: Saline Flush Sodium Chloride (Flush - Normal Saline) 10 ml IVF PRN PRN PRN Reason: Saline Flush Throat Lozenges (Cepastat Lozenges) 1 jennifer PO PRN PRN PRN Reason: Sore Throat Last Admin: 02/20/19 09:31 Dose: 1 jennifer Tizanidine HCl (Zanaflex) 4 mg PO Q6H PRN PRN Reason: Muscle Spasm
[2019-02-22] MEDS: Simvastatin 5 MG TAB PO SCH (20:00)
[2019-02-23] MEDS: Dexamethasone 4 MG TAB PO SCH ×3 (03:16→18:21)
--- NOTE | 2019-02-23 07:30 | PRG ---
DATE OF SERVICE: 02/23/2019 I saw Mr. Hawkins in his hospital room this morning. He has been moved from the Stroke Unit to the surgical floor. Mr. Hawkins was ready to go to inpatient rehabilitation on Saturday, Saturday, and Saturday. He would like to get his rehab underway. Mr. Hawkins' neurological examination is stable and the incision seems to be healing. He does not need his collar when he is sleeping, but when he is up and around, I would like him to have it on. He can be transferred to rehab anytime. Job ID: [id number]
[2019-02-23] MEDS: metFORMIN 500 MG TAB PO SCH ×2 (08:43→17:09)
[2019-02-23] MEDS: Senokot S 8.6-50 MG TAB PO SCH (08:43)
[2019-02-23] MEDS: Pioglitazone HCl 15 MG TAB PO SCH (08:43)
[2019-02-23] MEDS: Polyethylene Glycol 3350 17 GM Packet PO SCH (08:44)
[2019-02-23] MEDS: Lisinopril 10 MG TAB PO SCH (08:44)
[2019-02-23] MEDS: Aspirin 325 MG TAB PO SCH (08:44)
[2019-02-23] MEDS: levETIRAcetam 500 MG TAB PO SCH (08:44)
[2019-02-23] MEDS: HumaLOG 300 UNITS/3 ML VIAL SC PRN ×2 (11:53→17:10)
[2019-02-23 16:11] VITALS: BP 149/85; TEMP 98.1
--- NOTE | 2019-02-24 06:48 | DIS ---
DATE OF ADMISSION: 02/13/2019 DATE OF DISCHARGE: 02/23/2019 DISCHARGE DIAGNOSES: 1. Central cord compression, status post anterior cervical diskectomy with intervertebral arthrodesis and anterior cervical plating at C3 on C4 and C4 on C5, 02/19/2019. 2. Status post mechanical fall. 3. Status post lacerations of the right forehead with primary closure. 4. History of right hemiplegia, status post cerebrovascular accident, wheelchair-bound. 5. Diabetes mellitus type 2. 6. Hypertension. CONSULTATIONS: 1. Dr. Goodwin with Neurology Service. 2. Dr. Herrera with Trauma Service. 3. Dr. Campoverde with Neurosurgical Service. PERTINENT LAB AND X-RAY FINDINGS: Complete metabolic profile within normal limits. CBC showed a hemoglobin ranged between 9.7 to 12.0. Urine drug screen dated 02/13/2019, negative. CT of the brain without contrast dated 02/13/2019, showed no acute intracranial process. CT angiogram of the [place] dated 02/13/2019 showed no acute intracranial process. CT of the cervical spine dated 02/13/2019 showed prominent degenerative changes throughout the cervical spine. No acute process identified. MRI of the brain dated 02/14/2019 showed no acute infarct. Chronic small vessel ischemic changes noted. Cervical spine MRI dated 02/14/2019 showed central cervical cord compression at C5 on C6 with edema. No evidence of malignant process. Thoracic spine MRI dated 02/14/2019 showed no evidence of thoracic spine fracture. No evidence of high-grade central canal stenosis or high-grade foraminal narrowing. HOSPITAL COURSE: The patient was initially admitted after presenting status post mechanical fall with left-sided weakness. The patient with a previous history of right-sided hemiplegia in the context of previous CVA involving the right frontal and parietal region. The patient underwent extensive evaluation including multiple neuro imaging studies showing no evidence of acute central CVA. Workup did reveal central cord compression in the cervical spine, likely contributing the patient's left-sided weakness and fall. The patient was initially evaluated by the Trauma Service and placed in a cervical collar and screened for potential CVA. Due to the patient's distal cord compression of cervical spine, patient underwent evaluation by the neurosurgical team, undergoing operative repair on 02/19/2019 for cord compression and severe myelopathy with anterior cervical diskectomy and intervertebral arthrodesis in the C3 on C4 and C4 on C5 region. The patient was managed postoperatively by the Neurosurgical team as well as pain control with oral and IV options to include narcotic therapy. The patient was also placed on dexamethasone and overall clinically stabilized with supportive management. Due to the patient's general comorbid status, recent fall, and surgical intervention, patient was deemed an appropriate candidate for ongoing long-term care. The patient was also assessed for questionable dysphagia with recommendations for a modified diet with pureed texture and nectar thick liquids. The patient was also modified on his medication regimen to include crush medications and a diet with aspiration risk. The patient did not want to pursue any further modification to his dietary regimen or consider a feeding tube. I have examined the patient at the time of discharge and discussed followup instructions. The patient overall clinically stable and ready for discharge on 02/23/2019. DISCHARGE MEDICATIONS: 1. Tylenol No.3 1 to 2 tabs p.o. q.6 hours p.r.n. pain. 2. Dexamethasone 4 mg p.o. daily x5 days. 3. Glipizide XL 5 mg p.o. b.i.d. 4. Keppra 500 mg p.o. b.i.d. 5. Lisinopril 10 mg p.o. daily. 6. Metformin 1000 mg p.o. b.i.d. 7. Actos 30 mg p.o. daily. 8. Simvastatin 10 mg p.o. nightly. 9. Tizanidine 4 mg one tablet p.o. t.i.d. p.r.n. FOLLOWUP: The patient may follow up with Dr. Campoverde and to call his office for appointment time and date. CONDITION ON DISCHARGE: Fair. ACTIVITY: Ad-donna, wheelchair-bound status with fall risk precautions. Left [id number] amputation. [place] collar while sitting upright or mobilizing in a wheelchair. DIET: ADA with nectar-thick liquids and pureed texture. Crush medications. Diet with aspiration risk. SPECIAL INSTRUCTIONS: I will recommend ongoing physical, occupational, and speech therapy. CODE STATUS: Full. DISPOSITION: Discharge to [facility], 02/23/2019. TIME SPENT: Total time preparing and coordinating discharge 36 minutes. Job ID: [id number]
== END 2019-02-23 19:45 | DRG 471 ==
LOC: ERS 11:10 → 2SE 13:00 → SURG A 02-21 16:17
PROVIDERS: ADMIT Internal Medicine; ATTEND Internal Medicine
PROC: 0HQ0XZZ Repair Scalp Skin, External Approach (ICD-10-PCS; 2019-02-13)
PROC: 0RG20A0 Fusion of 2 or more Cervical Vertebral Joints with Interbody Fusion Device, Anterior Approach, Anterior Column, Open Approach (ICD-10-PCS; principal; 2019-02-19)
PROC: 0RB30ZZ Excision of Cervical Vertebral Disc, Open Approach (ICD-10-PCS; 2019-02-19)
DX: M50.021 Cervical disc disorder at C4-C5 level with myelopathy (principal); S14.125A Central cord syndrome at C5 level of cervical spinal cord, initial encounter; I69.351 Hemiplegia and hemiparesis following cerebral infarction affecting right dominant side; G81.94 Hemiplegia, unspecified affecting left nondominant side; M48.02 Spinal stenosis, cervical region; I10 Essential (primary) hypertension; E78.5 Hyperlipidemia, unspecified; E11.9 Type 2 diabetes mellitus without complications; S01.81XA Laceration without foreign body of other part of head, initial encounter; R56.9 Unspecified convulsions; S44.02XA Injury of ulnar nerve at upper arm level, left arm, initial encounter; W06.XXXA Fall from bed, initial encounter; Y92.013 Bedroom of single-family (private) house as the place of occurrence of the external cause; Z89.512 Acquired absence of left leg below knee; Z79.82 Long term (current) use of aspirin; Z79.84 Long term (current) use of oral hypoglycemic drugs; Z79.899 Other long term (current) drug therapy; Z87.891 Personal history of nicotine dependence; Z99.3 Dependence on wheelchair
CPT/HCPCS: 12013; 36415; 36416; 70450; 70496; 70498; 70551; 72040; 72125; 72141; 72146; 76000; 80048; 80053; 80061; 80306; 83735; 84100; 84484; 85025; 85610; 85730; 93005; C1713; C1776; J0131; J0690; J1100; J1644; J1650; J1885; J2001; J2405; J2704; J2765; J3010; J3475; J3490; J8540; Q9966; S0028

== ENCOUNTER 2019-03-02 14:34 | Inpatient (IN) | payer MEDICARE, MEDICAID ==
[~2019-03-02 14:34] MED LIST: ISOVUE-370 76%-LOCM 1 ML ONE
[2019-03-02 15:18] LABS: #Basophils 0.1 thou/uL (0.0-0.2); #Eosinphils 0.1 thou/uL (0.0-0.7); #Lymphocytes 1.1 thou/uL (1.20-3.40); #Monocytes 0.3 thou/uL (0.11-0.59); #Neutrophils 11.2 thou/uL (1.40-6.50); %Basophils 0.5 % (0.0-1.0); %Eosinophils 0.4 % (0.0-10.0); %Lymphocytes 8.7 % (21.0-51.0); %Monocytes 2.7 % (0.0-10.0); %Neutrophils 87.7 % (42.0-75.0); Hemoglobin 12.3 g/dL (14.0-18.0); Mean Corpuscular HGB CONC 32.2 g/dL (32.0-36.0); Mean Corpuscular Hemoglobin 28.8 pg (27.0-31.0); Mean Corpuscular Volume 89.3 fL (78.0-98.0); Mean Platelet Volume 8.9 fL (7.4-10.4); Platelet Count 218 thou/uL (130-400); Red Blood Cell (RBC) Count 4.26 mill/uL (4.70-6.10); White Blood Cell (WBC) Count 12.8 thou/uL (4.8-10.8)
[2019-03-02 15:30] LABS: ALT (SGPT) Less than 7 U/L (8-55); AST (SGOT) 7 U/L (5-34); Alkaline Phosphatase 57 U/L (40-150); Anion Gap 14 mmol/L (10-20); BUN (Urea Nitrogen) 40 mg/dL (8.4-25.7); Bilirubin, Total 0.6 mg/dL (0.2-1.2); Calc. Creatinine Clearance 0 mL/min (70-130); Calcium 10.5 mg/dL (7.8-10.44); Carbon Dioxide 27 mmol/L (22-29); Chloride 115 mmol/L (98-107); Estimated GFR-MDRD 85; Glucose 188 mg/dL (70-105); Potassium 4.4 mmol/L (3.5-5.1); Sodium 152 mmol/L (136-145)
--- NOTE | 2019-03-02 16:54 | RAD ---
PORTABLE CHEST ONE VIEW: 03/02/2019 3:35 p.m. HISTORY: Cough. COMPARISON: 07/02/2014 FINDINGS: The heart size is normal. The lungs are well expanded without lobar consolidation, pneumothoraces, o r pleural effusions. There is a plate of linear atelectasis in the left mid lung. POS: OFF
--- NOTE | 2019-03-02 18:10 | CT ---
CT NECK SOFT TISSUES WITH CONTRAST: HISTORY: Postoperative. Difficulty swallowing. COMPARISON: MRI cervical spine from 02/14/2019. FINDINGS: There is new ACDF hardware at C3-C5 without evidence for hardware complication. No migration of the diskectomy cages. Old left medial lamina papyracea dehiscence. There is what appears to be a small right superficial neck seroma, containing a small focus of gas, a nterior and medial to the sternocleidomastoid muscle, measuring 1.3 x 1.4 x 1.6 cm. There appears to be a small postoperative seroma anterior to the hardware, measuring 1.8 cm x 6 mm in AP dimension x craniocaudal length of 2.8 cm. There is abnormal consolidation within the right upper lobe. This is incompletely evaluated on this examination. No definite abscess formation. IMPRESSION: 1. Likely small postoperative seroma along the right neck, at the superficial fascia, just anterior and medial to the sternocleidomastoid muscle, as well as just anterior to the anterior cervical diske ctomy and fusion hardware. No definite evidence for abscess collection. 2. Abnormal consolidation within the right upper lobe. This may reflect infection or aspiration his tory. Mass is felt less likely. Follow-up CT of the chest in two weeks is recommended for further e valuation of this consolidation, as it is incompletely seen on today's examination. 3. If there is concern for acute cord compression due to infection, MRI would be recommended. POS: HOME
[2019-03-02] MEDS ORDERED: Senokot S 8.6-50 MG TAB PO PRN (19:24)
[2019-03-02] MEDS ORDERED: Bisacodyl 10 MG SUPP PR PRN (19:24)
[2019-03-02] MEDS ORDERED: Dextrose 5% in Water 1,000 ML IV PRN (19:24)
[2019-03-02] MEDS ORDERED: Dextrose 50% Abboject 50 ML SYRINGE SLOW IVP PRN (19:24)
[2019-03-02] MEDS ORDERED: Acetaminophen 650 MG Suppository PR PRN (19:24)
[2019-03-02] MEDS ORDERED: Ondansetron PF 4 MG/2 ML Vial IVP PRN (19:24)
[2019-03-02] MEDS ORDERED: Guaifenesin DM 100-10/5 ML UDCUP PO PRN (19:24)
[2019-03-02] MEDS ORDERED: Acetaminophen 325 MG TAB PO PRN (19:24)
[2019-03-02 20:47] VITALS: BMI 21.7
--- NOTE | 2019-03-02 20:51 | HP ---
REASON FOR ADMISSION: Severe dehydration, recent anterior cervical spine surgery with dysphagia now, severe deconditioning. HISTORY OF PRESENTING ILLNESS: The patient has a history of anterior cervical diskectomy done for cord compression after he fell out of bed on February 19. The patient was later discharged to [facility] for further recuperation. From the last 5 to 6 days, the patient has not been able to eat or drink. The patient says it is the same for both solids and liquids. He is also choking on anything that is given to him. He feels like his throat is swollen. Had a fever of 99 on arrival here. Sister who is here at his bedside is wanting a feeding tube to be put in him. The patient was eating normally prior to his last hospitalization here. This was confirmed with the patient. He was also ambulating with his prosthesis per the patient before the surgery. He has not ambulated now after surgery so far. Has cough with expectoration. No complaints of chest pain or palpitation. The patient feels very weak. 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 Had anterior cervical diskectomy with intervertebral arthrodesis and plating done for C3-4, C4-[address] Campoverde on 02/19/2019. CURRENT MEDICATIONS: The patient was discharged on: 1. Glipizide extended release 5 mg twice daily. 2. Keppra 500 mg p.o. twice daily. 3. Lisinopril 10 mg daily. 4. Pioglitazone 30 mg p.o. daily. 5. Metformin 1000 mg twice daily. 6. Simvastatin 10 mg p.o. q.h.s. 7. Tizanidine 4 mg p.o. q.8 hourly p.r.n. 8. Tylenol No. 3 two tablets p.o. q.6 hourly p.r.n. ALLERGIES: NO KNOWN DRUG ALLERGIES. PERSONAL HISTORY: He is currently living at [facility]. Does not abuse alcohol or drugs. No history of smoking. FAMILY HISTORY: Mother is living. She is on dialysis, is legally blind and has diabetes as well. Father at the age of 87 years from natural causes. CODE STATUS: Full. Power of contracts attorney is his sister, Ms. Victor. He also has a daughter, whose name is Suzette. REVIEW OF SYSTEMS: CONSTITUTIONAL: Negative for weight loss or gain, ability to conduct usual activities. SKIN: Negative for rash, itching. EYES: Negative for double vision, pain. ENT/MOUTH: Negative for nose bleeding, neck stiffness, pain, tenderness. CARDIOVASCULAR: Negative for palpitations, dyspnea on exertion, orthopnea. RESPIRATORY: Negative for shortness of breath, wheezing, cough, hemoptysis, fever or night sweats. GASTROINTESTINAL: Negative for poor appetite, abdominal pain, heartburn, nausea, vomiting, constipation, or diarrhea. GENITOURINARY: Negative for urgency, frequency, dysuria, nocturia. MUSCULOSKELETAL: Negative for pain, swelling. NEUROLOGIC/PSYCHIATRIC: Negative for anxiety, depression. ALLERGY/IMMUNOLOGIC: Negative for skin rash, bleeding tendency. PHYSICAL EXAMINATION: GENERAL: The patient is a 58-year-old male, who is currently not in any acute distress. VITAL SIGNS: Blood pressure 106/70, pulse 96 per minute, respiratory rate 20 per minute, temperature 99.2 degrees Fahrenheit, saturating 95% on room air. NECK: Supple. No elevated JVD. HEENT: Eyes; extraocular muscles intact. Pupils reacting to light. Oral cavity; mucous membranes are dry. No exudates or congestion. CARDIOVASCULAR SYSTEM: S1 and S2 heard. Regular rhythm. RESPIRATORY SYSTEM: Scattered rhonchi plus mild wheezes plus bilateral. ABDOMEN: Soft. Bowel sounds heard. No tenderness, rigidity, or guarding. EXTREMITIES: No peripheral edema or calf tenderness. Peripheral pulses 1+ bilateral. SKIN: No ischemic ulcerations or gangrene. CENTRAL NERVOUS SYSTEM: The patient has right hemiplegia, which is chronic. He also has a strength of 3/5 in his left upper extremity. He freely moves left lower extremity. PSYCHIATRIC SYSTEM: No obvious hallucinations or delusions. LABORATORY DATA: White count of 12, H and H of 12 and 38, platelet count 218, MCV is 89 with 87% neutrophils. Sodium 152, chloride 115, serum bicarb 27, BUN 40, creatinine 1.0, serum glucose 188, calcium is 10.5. Liver enzymes within normal limits. Albumin is 4. IMAGING STUDIES: Chest x-ray shows no acute abnormality. CT neck with contrast done shows small postoperative seroma along the right neck at the superficial fascia, just anterior and medial to sternocleidomastoid as well as just anterior to the anterior cervical diskectomy and fusion hardware. No definite evidence for abscess collection. There was abnormal consolidation within the right upper lobe. This may reflect infection or aspiration. CLINICAL IMPRESSION AND PLAN: The patient will be admitted to medical floor for severe dysphagia with recent anterior cervical diskectomy and likely aspiration pneumonia. He will be placed on Solu-Medrol 40 mg IV q.6 hourly, clindamycin 600 mg IV q.8 hourly, and aggressive hydration with D5 water at 100 mL/h. We will closely monitor his fingerstick glucose in view of him being a diabetic and the D5 water that has been given. He has severe dehydration as well clinically. If needed, he will be placed on insulins. We will continue his Keppra as before. He will be on DuoNeb q.6 hourly. We will consult Dr. Campoverde for Neurosurgery. We will also consult Speech therapist. Likely with steroids, his dysphagia should improve. If the patient were not to improve, then further measures will be undertaken to help with his nutrition. I have discussed all of this with the patient and sister, Ms. Victor, who is wanting a feeding tube initially. She agrees to current plan for now. A blood culture stat has been obtained in the ER. We will follow up on that. PT/OT evaluations will be requested. The patient has his prosthesis at his bedside. He also has weakness in his left side, specifically the left upper extremity as well at present. Code status was discussed with the patient and his power of contracts attorney and both agreed for him to be full code. Job ID: [id number]
[2019-03-02] MEDS ORDERED: Famotidine/PF 20 mg/2ml Vial SLOW IVP SCH (21:00)
[2019-03-02] MEDS ORDERED: Famotidine 20 MG TAB PO SCH (21:00)
[2019-03-02] MEDS: Dextrose 5% in Water 1,000 ML IV SCH (21:22)
[2019-03-02] MEDS: Clindamycin/D5W 600 MG in Premix Bag 1 BAG IVPB SCH (21:24)
[2019-03-02] MEDS: levETIRAcetam 500 MG TAB PO SCH (22:14)
[2019-03-02] MEDS: methylPREDNISolone Sod Succ 40 MG VIAL IVP SCH (23:42)
[2019-03-03] MEDS: Clindamycin/D5W 600 MG in Premix Bag 1 BAG IVPB SCH ×3 (05:17→21:23)
[2019-03-03] MEDS: methylPREDNISolone Sod Succ 40 MG VIAL IVP SCH (05:18)
[2019-03-03] MEDS: Dextrose 5% in Water 1,000 ML IV SCH (05:21)
[2019-03-03 05:41] LABS: #Lymphocytes 0.9 thou/uL (1.20-3.40); #Monocytes 0.1 thou/uL (0.11-0.59); #Neutrophils 9.6 thou/uL (1.40-6.50); %Basophils 0.1 % (0.0-1.0); %Eosinophils 0.1 % (0.0-10.0); %Lymphocytes 8.2 % (21.0-51.0); %Monocytes 1.3 % (0.0-10.0); %Neutrophils 90.3 % (42.0-75.0); Hemoglobin 10.5 g/dL (14.0-18.0); Mean Corpuscular HGB CONC 31.8 g/dL (32.0-36.0); Mean Corpuscular Hemoglobin 28.4 pg (27.0-31.0); Mean Corpuscular Volume 89.3 fL (78.0-98.0); Mean Platelet Volume 9.1 fL (7.4-10.4); Platelet Count 211 thou/uL (130-400); Red Blood Cell (RBC) Count 3.69 mill/uL (4.70-6.10); White Blood Cell (WBC) Count 10.6 thou/uL (4.8-10.8)
[2019-03-03 05:58] LABS: Anion Gap 11 mmol/L (10-20); BUN (Urea Nitrogen) 26 mg/dL (8.4-25.7); Calc. Creatinine Clearance 82 mL/min (70-130); Calcium 10.2 mg/dL (7.8-10.44); Carbon Dioxide 26 mmol/L (22-29); Chloride 115 mmol/L (98-107); Estimated GFR-MDRD Greater than 90; Glucose 325 mg/dL (70-105); Potassium 4.4 mmol/L (3.5-5.1); Sodium 148 mmol/L (136-145)
[2019-03-03] MEDS: HumaLOG 300 UNITS/3 ML VIAL SC PRN ×3 (06:11→18:09)
[2019-03-03] MEDS ORDERED: Sodium Chloride 0.9% (PF) 10 ML VIAL FS PRN (06:50)
[2019-03-03] MEDS ORDERED: Dexamethasone 10 MG in Sodium Chloride 0.9% 50 ML IVPB SCH (07:15)
--- NOTE | 2019-03-03 07:37 | PRG ---
DATE OF SERVICE: 03/03/2019 I personally saw Mr. Hawkins in his hospital room this morning. I reviewed notes and imaging, and I agreed with previous documentation. Briefly, Mr. Hawkins is a 58-year-old gentleman with severe cervical spondylotic myelopathy, and we were consulted during his last hospitalization and performed the ACDF at C3-4, and C4-5 for decompression of a severely compressed spinal cord. He already had T2 signal change and myelomalacia within the substance of the cord. We operated to prevent further neurological deterioration. He was transferred after his hospitalization to custodial and over the last 4 to 5 days, he has had progressive difficulty swallowing, for which he was brought back to the emergency department. This morning, I am seeing him, and I do not see any recorded fevers, although the white count is a bit up. Blood pressure is 155 this morning. Other vitals looked stable. The voice is a bit hoarse voice there are some upper airway sounds suggestive of slight aspiration. He clears with coughing. I do not find any new neurological deficit. CT examination of cervical spine did not reveal large fluid collection in the operative field. Plate and screws are in position. The operative intervention of Mr. Hawkins was relatively unremarkable. I did not have any specific concern about the esophagus, although the high anterior cervical dissection is sometimes complicated by postoperative swelling and dysphagia. I started Decadron with a 10 mg bolus and then 4 mg q.i.d. for the next few days before we start to taper it. I switched the Pepcid to Protonix twice a day. We will have to watch for any lung consolidation developing over the next few days as early aspiration pneumonitis is a possibility. I do not see a strong indication to reoperate as there is very little mass effect on the upper airway and upper esophagus. We will continue to follow while he is in the hospital. Job ID: [id number] [facility]
[2019-03-03] MEDS: Sodium Chloride 0.45% 1,000 ML IV SCH ×2 (08:19→18:15)
[2019-03-03] MEDS: Dexamethasone 4 mg/ml Vial SLOW IVP SCH ×4 (08:22→20:11)
[2019-03-03] MEDS: Pantoprazole 40 MG VIAL IVP SCH ×2 (08:23→20:11)
[2019-03-03] MEDS: Enoxaparin Sodium 40 MG/0.4 ML SYRINGE SC SCH (08:24)
[2019-03-03] MEDS: levETIRAcetam 500 MG TAB PO SCH (08:26)
--- NOTE | 2019-03-03 08:27 | CON ---
DATE OF CONSULTATION: HISTORY OF PRESENT ILLNESS: Mr. Hawkins is a 58-year-old male, who is known to our [facility]. He was in the hospital the beginning of the month following a fall out of bed when it was safe to do so and he was off anticoagulation. I performed anterior cervical diskectomy and fusion on February 19 for his reported injury. The patient progressed well while in the hospital stay for several days before he was able to discharge to rehab and was not having any dysphagia at that time. Today, I see Mr. Hawkins in his hospital room. He has been admitted for dehydration, dysphagia, and possible pneumonia. He has a congestion, thick mucousy cough. His incision is closed. There is a little bit of swelling noted. There is no discharge or erythema. He does complain of little soreness and unable to swallow solids or liquids for 5 days. Otherwise, the patient is neurologically intact. He is alert and oriented. 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 He is moving the left lower extremity, which has a [id number] amputation, but moving a good strength in his right. He is able to wiggle his toes and move around slightly with right upper extremity contracture. REVIEW OF SYSTEMS: A 10-point review of systems has been completed and is negative other than stated in the above HPI. PAST MEDICAL HISTORY: Hyperlipidemia, neurologic disease, ischemic cerebrovascular accident, multiple diabetes type 2, and hypertension. 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 SOCIAL HISTORY: The patient is a former drug user. Denies alcohol or tobacco. ALLERGIES: NO KNOWN DRUG ALLERGIES. MEDICATIONS: 1. Simvastatin. 2. Metformin. 3. Lisinopril. 4. Glipizide. 5. Pioglitazone. 6. Atorvastatin. 7. Dexamethasone. 8. . PHYSICAL EXAMINATION: VITAL SIGNS: Temperature 97.6, heart rate 78, respirations 18, O2 saturations 96% on room air, and blood pressure 155/79. CONSTITUTIONAL: The patient is hypertensive, afebrile, appears nontoxic and pain-free. He is alert and oriented. HEENT: Head is normocephalic and atraumatic. Pupils are equal, round, and reactive to light. Extraocular movements are intact. Hearing is intact. Moist mucous membranes and thick mucous seen in his mouth. NECK: There is an incision right of midline, which is healing well. This is a well-aligned incision. There is no significant erythema. There is no drainage. There is minimal amount of swelling under the incision. It is nontender. EXTREMITIES: The patient is moving left upper extremity with good strength in deltoids, biceps, triceps. 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 Right upper extremity, normal right hemiplegia with contractures. Lower extremities, left lower extremity, [id number] amputation. Good strength and range of motion. Right lower extremity, decreased range of motion. He toe wiggle for me. NEURO: The patient is alert and oriented x3. Speech is spontaneous, although mumbled due to some mucous in his mouth. There are no sensory or motor deficits noted. LABORATORY DATA: WBCs when he came in last night 12.8, this morning 10.6. IMAGING: CT: No significant fluid collection surgical site, screws and plate in place ASSESSMENT AND PLAN: Mr. Hawkins has been brought in to the hospital for dysphagia, possible aspiration pneumonia. From neurosurgical standpoint, recommend starting steroids and treating possible infection. There is no drainage from the incision. There is no significant fluid collection. It is unlikely that we need to perform another surgery. Job ID: [id number] [facility]
--- NOTE | 2019-03-03 11:57 | PDOC.PN ---
- Subjective Encounter Start Date: 03/03/19 Encounter Start Time: 08:20 Subjective: is awake, no difficulty breathing -: has not tried eating/drinking -: daughter at bedside - Objective Resuscitation Status - Order Detail: 03/02/19 19:19 Resuscitation Status Routine Resuscitation Status: FULL: Full Resuscitation Discussed with: POA: sister Ms.Anita DEL ANGEL Reviewed: Yes Vital Signs & Weight: Vital Signs (12 hours) Temp Pulse Resp BP Pulse Ox 03/03/19 08:10 95 03/03/19 07:21 98.5 F 95 20 129/77 95 03/03/19 06:42 70 12 100 03/03/19 04:00 97.6 F 78 18 155/79 H 96 03/03/19 00:00 97.4 F L 93 18 116/73 95 Weight Admit Weight 134 lb 7.712 oz Weight 134 lb 7.712 oz I&O: 03/02/19 03/03/19 03/04/19 06:59 06:59 06:59 Intake Total 757 10 Balance 757 10 Result Diagrams: 03/03/19 04:54 03/03/19 04:54 Additional Labs: Accuchecks 03/03/19 03/02/19 03:58 20:28 POC Glucose 278 H 161 H Phys Exam - Physical Examination HEENT: PERRLA, sclera anicteric Neck: no JVD Respiratory: no wheezing rhonchi+ Cardiovascular: RRR, no significant murmur Gastrointestinal: soft, no distention, positive bowel sounds Musculoskeletal: no edema, pulses present right bka right hemiplegia, dysphagia, moves left extremities but has strength of 3/5 Psychiatric: A&O x 3 Dx/Plan (1) Aspiration pneumonia Code(s): J69.0 - PNEUMONITIS DUE TO INHALATION OF FOOD AND VOMIT Status: Acute Qualifiers: Laterality: right Lung location: upper lobe of lung (2) Dysphagia Code(s): R13.10 - DYSPHAGIA, UNSPECIFIED Status: Acute Qualifiers: Dysphagia type: unspecified Qualified Code(s): R13.10 - Dysphagia, unspecified (3) Severe dehydration Code(s): E86.0 - DEHYDRATION Status: Acute Comment: with electrolyte abnormalities, improving (4) Cord compression syndrome Code(s): G95.20 - UNSPECIFIED CORD COMPRESSION Status: Acute Comment: had ant cervical approach decompression 02/19/2019, slowly improving (5) History of CVA (cerebrovascular accident) Code(s): Z86.73 - PRSNL HX OF TIA (TIA), AND CEREB INFRC W/O RESID DEFICITS Status: Chronic Comment: with right hemiplegia (6) Seizure Status: Chronic (7) DM2 (diabetes mellitus, type 2) Status: Chronic Qualifiers: Diabetes mellitus fci insulin use: without fci use (8) Dyslipidemia Code(s): E78.5 - HYPERLIPIDEMIA, UNSPECIFIED Status: Chronic Comment: continue simvastatin (9) HTN (hypertension) Code(s): I10 - ESSENTIAL (PRIMARY) HYPERTENSION Status: Chronic Qualifiers: Hypertension type: essential hypertension Comment: controlled (10) Physical deconditioning Code(s): R53.81 - OTHER MALAISE Status: Acute - Plan hemostable -: is on decadron, protonix, nebs, clindamycin, i.spirometry -: encourage po intake start with fluids and adv as tolerated -: continue 1/2 NS, keppra, senna -: PT/OT to mobilize as tolerated * . No modified ba swallow needed now. Review of Systems - Medications/Allergies Allergies/Adverse Reactions: Allergies Allergy/AdvReac Type Severity Reaction Status Date / Time No Known Drug Allergies Allergy Verified 03/02/19 20:29 Medications: Current Medications Acetaminophen (Tylenol) 650 mg PO Q4H PRN PRN Reason: Headache/Fever/Mild Pain (1-3) Acetaminophen (Tylenol) 650 mg [place] Q4H PRN PRN Reason: Headache/Fever/Mild Pain (1-3) Albuterol/Ipratropium (Duoneb) 3 ml NEB [id number] [facility] Last Admin: 03/03/19 06:42 Dose: 3 ml Bisacodyl (Dulcolax) 10 mg [place] DAILYPRN PRN PRN Reason: Constipation Dexamethasone (Decadron) 4 mg SLOW IVP QID [facility] Last Admin: 03/03/19 08:22 Dose: Not Given Dextrose/Water (Dextrose 50%) 25 gm SLOW IVP PRN PRN PRN Reason: Hypoglycemia Enoxaparin Sodium (Lovenox) 40 mg SC 0900 [facility] Last Admin: 03/03/19 08:24 Dose: 40 mg Glucagon (Glucagon) 1 mg IM PRN PRN PRN Reason: Hypoglycemia Guaifenesin/Dextromethorphan (Robitussin Dm) 15 ml PO Q4H PRN PRN Reason: Cough Clindamycin Phosphate/Dextrose (600 mg/ Device) 50 mls @ 100 mls/hr IVPB Q8HR [facility] Last Admin: 03/03/19 05:17 Dose: 50 mls Dextrose/Water (D5w) 1,000 mls @ 0 mls/hr IV .Q0M PRN PRN Reason: Hypoglycemia Sodium Chloride (1/2 Normal Saline) 1,000 mls @ 100 mls/hr IV .Q10H [facility] Last Admin: 03/03/19 08:19 Dose: 1,000 mls Insulin Human Lispro (Humalog) 0 units SC .MODERATE SLIDING SC PRN PRN Reason: Moderate Correctional Scale Last Admin: 03/03/19 06:11 Dose: 6 unit Levetiracetam (Keppra) 500 mg PO BID [facility] Last Admin: 03/03/19 08:26 Dose: Not Given Ondansetron HCl (Zofran) 4 mg IVP Q6H PRN PRN Reason: Nausea/Vomiting Pantoprazole Sodium (Protonix) 40 mg IVP Q12HR [facility] Last Admin: 03/03/19 08:23 Dose: 40 mg Senna/Docusate Sodium (Senokot S) 2 tab PO BID PRN PRN Reason: Constipation Sodium Chloride (Normal Saline Pf) 10 ml FS PRN PRN PRN Reason: RECONSTITUTION
[2019-03-03] MEDS ORDERED: levETIRAcetam 500 mg/5 ml Oral Solution PO SCH (21:00)
[2019-03-04] MEDS: Clindamycin/D5W 600 MG in Premix Bag 1 BAG IVPB SCH ×3 (05:31→21:03)
[2019-03-04] MEDS: Sodium Chloride 0.45% 1,000 ML IV SCH ×3 (05:31→23:29)
[2019-03-04] MEDS: HumaLOG 300 UNITS/3 ML VIAL SC PRN ×3 (05:32→16:48)
[2019-03-04 06:20] LABS: Anion Gap 14 mmol/L (10-20); BUN (Urea Nitrogen) 17 mg/dL (8.4-25.7); Calc. Creatinine Clearance 103 mL/min (70-130); Calcium 9.6 mg/dL (7.8-10.44); Carbon Dioxide 22 mmol/L (22-29); Chloride 111 mmol/L (98-107); Estimated GFR-MDRD Greater than 90; Glucose 245 mg/dL (70-105); Potassium 3.9 mmol/L (3.5-5.1); Sodium 143 mmol/L (136-145)
[2019-03-04] MEDS: Pantoprazole 40 MG VIAL IVP SCH ×2 (08:46→20:14)
[2019-03-04] MEDS: Enoxaparin Sodium 40 MG/0.4 ML SYRINGE SC SCH (08:46)
[2019-03-04] MEDS: Dexamethasone 4 mg/ml Vial SLOW IVP SCH ×4 (08:47→20:13)
--- NOTE | 2019-03-04 10:03 | PRG ---
DATE OF SERVICE: I saw Mr. Hawkins in his hospital room this morning. He is at the beginning of his third hospital day. This is an admission on the for dysphagia and possible aspiration pneumonitis 2 weeks after an ACDF. Decadron was started yesterday. No reports of events overnight. He has been afebrile. Currently, Mr. Hawkins is resting comfortably. His neurological examination is same as it has been since I have met him. There is flexion contracture of the right elbow. Right arm is relatively useless. The left arm has good motion except for the hand intrinsics, which are weak. This is stable from prior examinations. Anterior neck incision does not look distended at all. There does not appear to be any fluid collection superficially or beneath it and there is no drainage. There is no new blood count. The CT examination of the soft tissues of the neck done on admission showed a small consolidation in the right upper lobe of the lung, probably from small aspiration events. Mr. Hawkins tells me this morning that he got some ice chips done yesterday. This is an improvement from where he was at the facility caring for him. If the steroid medication continues to result in significant improvement and he gets back to taking more solid foods in a few days, then I think we would have avoided any repeat operations or need for them. Our Neurosurgery Team will continue to follow along while he is in the hospital. Job ID: [id number]
--- NOTE | 2019-03-04 12:16 | PDOC.PN ---
- Subjective Encounter Start Date: 03/04/19 Encounter Start Time: 11:35 Subjective: awake, says he just had some ice chips -: has not had any other food so far -: moves his left extremities - Objective Resuscitation Status - Order Detail: 03/02/19 19:19 Resuscitation Status Routine Resuscitation Status: FULL: Full Resuscitation Discussed with: POA: sister Ms.Anita DEL ANGEL Reviewed: Yes Vital Signs & Weight: Vital Signs (12 hours) Temp Pulse Resp BP Pulse Ox 03/04/19 11:41 98.1 F 60 16 166/82 H 96 03/04/19 08:45 97 03/04/19 08:00 97.6 F 77 16 131/79 97 03/04/19 06:44 99 03/04/19 06:41 79 18 100 03/04/19 01:48 98 03/04/19 00:30 63 19 96 03/04/19 00:21 97.7 F 52 L 16 154/57 H 100 Weight Admit Weight 134 lb 7.712 oz Weight 134 lb 7.712 oz I&O: 03/03/19 03/04/19 03/05/19 06:59 06:59 06:59 Intake Total 757 2379 Balance 757 2379 Result Diagrams: 03/03/19 04:54 03/04/19 05:43 Additional Labs: Accuchecks 03/04/19 03/03/19 03/03/19 05:29 20:01 17:34 POC Glucose 261 H 200 H 235 H Phys Exam - Physical Examination HEENT: PERRLA, moist MMs Neck: no JVD, supple Respiratory: no wheezing, no rales Cardiovascular: RRR, no significant murmur Gastrointestinal: soft, no distention, positive bowel sounds Musculoskeletal: no edema, pulses present right UE flexion contracture right hemiplegia, dysphasia responds well to verbal stimuli Dx/Plan (1) Aspiration pneumonia Code(s): J69.0 - PNEUMONITIS DUE TO INHALATION OF FOOD AND VOMIT Status: Acute Qualifiers: Laterality: right Lung location: upper lobe of lung (2) Dysphagia Code(s): R13.10 - DYSPHAGIA, UNSPECIFIED Status: Acute Qualifiers: Dysphagia type: unspecified Qualified Code(s): R13.10 - Dysphagia, unspecified (3) Severe dehydration Code(s): E86.0 - DEHYDRATION Status: Acute Comment: with electrolyte abnormalities, improving (4) Cord compression syndrome Code(s): G95.20 - UNSPECIFIED CORD COMPRESSION Status: Chronic Comment: had ant cervical approach decompression 02/19/2019, slowly improving (5) History of CVA (cerebrovascular accident) Code(s): Z86.73 - PRSNL HX OF TIA (TIA), AND CEREB INFRC W/O RESID DEFICITS Status: Chronic Comment: with right hemiplegia (6) Seizure Status: Chronic (7) DM2 (diabetes mellitus, type 2) Status: Chronic Qualifiers: Diabetes mellitus timekeeping supervisor insulin use: without usp use (8) Dyslipidemia Code(s): E78.5 - HYPERLIPIDEMIA, UNSPECIFIED Status: Chronic Comment: continue simvastatin (9) HTN (hypertension) Code(s): I10 - ESSENTIAL (PRIMARY) HYPERTENSION Status: Chronic Qualifiers: Hypertension type: essential hypertension Comment: controlled (10) Physical deconditioning Code(s): R53.81 - OTHER MALAISE Status: Acute - Plan hemostable -: nsx opinion reg peg tube until he can take orally -: has coughing spells upon fluid intake multiple times yesterday per staff -: keppra iv , decadron iv, protonix iv -: continue iv fluids at current rated x 18hrs * . PT/OT to mobilize as tolerated. Review of Systems - Medications/Allergies Allergies/Adverse Reactions: Allergies Allergy/AdvReac Type Severity Reaction Status Date / Time No Known Drug Allergies Allergy Verified 03/02/19 20:29 Medications: Current Medications Acetaminophen (Tylenol) 650 mg PO Q4H PRN PRN Reason: Headache/Fever/Mild Pain (1-3) Acetaminophen (Tylenol) 650 mg [place] Q4H PRN PRN Reason: Headache/Fever/Mild Pain (1-3) Albuterol/Ipratropium (Duoneb) 3 ml NEB [id number] [facility] Last Admin: 03/04/19 06:41 Dose: 3 ml Bisacodyl (Dulcolax) 10 mg [place] DAILYPRN PRN PRN Reason: Constipation Dexamethasone (Decadron) 4 mg SLOW IVP QID [facility] Last Admin: 03/04/19 08:47 Dose: 4 mg Dextrose/Water (Dextrose 50%) 25 gm SLOW IVP PRN PRN PRN Reason: Hypoglycemia Enoxaparin Sodium (Lovenox) 40 mg SC 0900 [facility] Last Admin: 03/04/19 08:46 Dose: 40 mg Glucagon (Glucagon) 1 mg IM PRN PRN PRN Reason: Hypoglycemia Guaifenesin/Dextromethorphan (Robitussin Dm) 15 ml PO Q4H PRN PRN Reason: Cough Clindamycin Phosphate/Dextrose (600 mg/ Device) 50 mls @ 100 mls/hr IVPB Q8HR [facility] Last Admin: 03/04/19 05:31 Dose: 50 mls Dextrose/Water (D5w) 1,000 mls @ 0 mls/hr IV .Q0M PRN PRN Reason: Hypoglycemia Sodium Chloride (1/2 Normal Saline) 1,000 mls @ 100 mls/hr IV .Q10H [facility] Last Admin: 03/04/19 05:31 Dose: 1,000 mls Levetiracetam 500 mg/ Device 100 mls @ 200 mls/hr IVPB BID [facility] Last Admin: 03/04/19 08:47 Dose: 100 mls Insulin Glargine 10 units/ (Miscellaneous Medication) 0.1 mls @ 0 mls/hr SC BID [facility] Insulin Human Lispro (Humalog) 0 units SC .MODERATE SLIDING SC PRN PRN Reason: Moderate Correctional Scale Last Admin: 03/04/19 05:32 Dose: 6 unit Ondansetron HCl (Zofran) 4 mg IVP Q6H PRN PRN Reason: Nausea/Vomiting Pantoprazole Sodium (Protonix) 40 mg IVP Q12HR [facility] Last Admin: 03/04/19 08:46 Dose: 40 mg Senna/Docusate Sodium (Senokot S) 2 tab PO BID PRN PRN Reason: Constipation Sodium Chloride (Normal Saline Pf) 10 ml FS PRN PRN PRN Reason: RECONSTITUTION
[2019-03-04] MEDS: Insulin Glargine 10 UNITS in Pre-Filled Syringe SC SCH ×2 (20:14→21:33)
[2019-03-05] MEDS: Sodium Chloride 0.45% 1,000 ML IV SCH ×2 (05:17→17:26)
[2019-03-05] MEDS: Clindamycin/D5W 600 MG in Premix Bag 1 BAG IVPB SCH ×3 (05:18→22:48)
[2019-03-05] MEDS: HumaLOG 300 UNITS/3 ML VIAL SC PRN (05:18)
[2019-03-05 06:07] LABS: Anion Gap 14 mmol/L (10-20); BUN (Urea Nitrogen) 14 mg/dL (8.4-25.7); Calc. Creatinine Clearance 107 mL/min (70-130); Calcium 9.9 mg/dL (7.8-10.44); Carbon Dioxide 22 mmol/L (22-29); Chloride 106 mmol/L (98-107); Estimated GFR-MDRD Greater than 90; Glucose 232 mg/dL (70-105); Sodium 138 mmol/L (136-145)
--- NOTE | 2019-03-05 07:49 | PRG ---
DATE OF SERVICE: 03/05/2019 I saw Mr. Hawkins in his hospital room this morning. He is talking more clearly today than he has in the past. He says that he had some thickened and ice chips yesterday, but no Jell-O and no yoghurt and no applesauce. He still has not had many calories in since his admission, but he feels that the steroids are helping him. On exam of Mr. Hawkins, I do not find any changes in his wound. He remains afebrile. His neurological function is stable from his last admission and there were no new labs to report. We will continue with the plan of steroids at 4 mg q.6 hours throughout the day and begin a taper over the weekend, it would be a slow taper. Hopefully, will speech, physical and occupational therapy can make some progress and he will return to a place to improve his neurological function. He remains on antibiotics for pneumonitis. We will follow him while he is in the hospital. Job ID: [id number] [facility]
[2019-03-05] MEDS: Dexamethasone 4 mg/ml Vial SLOW IVP SCH ×4 (10:11→21:27)
[2019-03-05] MEDS: Enoxaparin Sodium 40 MG/0.4 ML SYRINGE SC SCH (10:12)
[2019-03-05] MEDS: Insulin Glargine 10 UNITS in Pre-Filled Syringe SC SCH ×2 (10:12→21:25)
[2019-03-05] MEDS: Pantoprazole 40 MG VIAL IVP SCH ×2 (10:15→21:30)
--- NOTE | 2019-03-05 11:31 | PQF ---
CLINICAL DOCUMENTATION IMPROVEMENT CLARIFICATION FORM: ICD-10 Updated PLEASE DO AN ADDENDUM TO THE PROGRESS NOTE WITH ANY DOCUMENTATION UPDATES OR ADDITIONS AND CARRY THROUGH TO DC SUMMARY. THANK YOU. DATE: 03/05/2019 ATTN: Dr. Velasco Please exercise your independent, professional judgment in responding to the clarification form. Clinical indicators are provided on the bottom of this form for your review Please check appropriate box(s): [x ] I (concur) with the Nursing Assessment findings as stated below. [ ] Pressure Ulcer: (Stage I: Erythema; Stage II: Partial thickness; Stage III : Full thickness; Stage IV: Necrosis to muscle/bone) [ ] Location: Stage (I to IV): __(Left__Right__Bilateral__N/A__) [ ] Location: Stage (I to IV): __(Left__Right__Bilateral__N/A__) [ ] No pressure ulcer diagnosis [ ] Other diagnosis [ ] Unable to determine In addition, please specify: Present on Admission (POA): [ x] Yes [ ] No [ ] Unable to determine For continuity of documentation, please document condition throughout progress notes and discharge summary. Thank You. CLINICAL INDICATORS - SIGNS / SYMPTOMS / LABS Nursing assessment 03/02 @ 2009: Sacrum Pressure Ulcer. Stage II RISKS: H&P 03/02: Hx of CVA with r hemiplegia 2 yrs back; DM 2: r BKA. Admitted for severe dysphagia wit recent anterior cervical diskectomy and likely aspiration pna. TREATMENT: Skin Interventions per Nursing Protocol: Position changes: Q2H in bed, Q1 H in chair. Skin kept from excessive moisture Pre-ulcer skin changes limited to persistent focal edema (Stage 1) Abrasion, blister, partial thickness skin loss involving epidermis and/or dermis (Stage 2) Full thickness skin loss involving damage or necrosis of SQ tissue. (Stage 3) Necrosis of soft tissue through to underlying muscle, tendon, or bone. (Stage 4) Purple or maroon discolored skin or blood filled blister Thank you, Elizabeth (This form is maintained as a part of the permanent medical record) 2015 [employer] All Rights Reserved Elizabeth King RN, BSN [email or web address] Office: [phone] [facility]
--- NOTE | 2019-03-05 12:52 | PDOC.PN ---
- Subjective Encounter Start Date: 03/05/19 Encounter Start Time: 09:00 Subjective: awake, says he ate some thickened food last evening, none this am -: daughter at bedside, gave updates to her - Objective Resuscitation Status - Order Detail: 03/02/19 19:19 Resuscitation Status Routine Resuscitation Status: FULL: Full Resuscitation Discussed with: POA: sister Ms.Anita DEL ANGEL Reviewed: Yes Vital Signs & Weight: Vital Signs (12 hours) Temp Pulse Resp BP Pulse Ox 03/05/19 08:00 96.7 F L 78 16 144/88 H 98 03/05/19 06:51 100 03/05/19 06:48 70 16 100 Weight Admit Weight 134 lb 7.712 oz Weight 134 lb 7.712 oz I&O: 03/04/19 03/05/19 03/06/19 06:59 06:59 06:59 Intake Total 2379 2450 60 Balance 2379 2450 60 Result Diagrams: 03/03/19 04:54 03/05/19 05:34 Additional Labs: Accuchecks 03/05/19 03/05/19 03/04/19 11:43 03:33 19:41 POC Glucose 153 H 257 H 204 H 03/04/19 16:45 POC Glucose 229 H Phys Exam - Physical Examination HEENT: PERRLA, sclera anicteric Neck: no JVD, supple Respiratory: no wheezing, no rales Cardiovascular: RRR, no significant murmur Gastrointestinal: soft, non-tender, positive bowel sounds Musculoskeletal: pulses present right hemiplegia, small muscle atrophy left hand Psychiatric: A&O x 3 Dx/Plan (1) Aspiration pneumonia Code(s): J69.0 - PNEUMONITIS DUE TO INHALATION OF FOOD AND VOMIT Status: Acute Qualifiers: Laterality: right Lung location: upper lobe of lung (2) Dysphagia Code(s): R13.10 - DYSPHAGIA, UNSPECIFIED Status: Acute Qualifiers: Dysphagia type: unspecified Qualified Code(s): R13.10 - Dysphagia, unspecified (3) Severe dehydration Code(s): E86.0 - DEHYDRATION Status: Acute Comment: with electrolyte abnormalities, improving (4) Cord compression syndrome Code(s): G95.20 - UNSPECIFIED CORD COMPRESSION Status: Chronic Comment: had ant cervical approach decompression 02/19/2019, slowly improving (5) History of CVA (cerebrovascular accident) Code(s): Z86.73 - PRSNL HX OF TIA (TIA), AND CEREB INFRC W/O RESID DEFICITS Status: Chronic Comment: with right hemiplegia (6) Seizure Status: Chronic (7) DM2 (diabetes mellitus, type 2) Status: Chronic Qualifiers: Diabetes mellitus fpc insulin use: without medical terminologist use (8) Dyslipidemia Code(s): E78.5 - HYPERLIPIDEMIA, UNSPECIFIED Status: Chronic Comment: continue simvastatin (9) HTN (hypertension) Code(s): I10 - ESSENTIAL (PRIMARY) HYPERTENSION Status: Chronic Qualifiers: Hypertension type: essential hypertension Comment: controlled (10) Physical deconditioning Code(s): R53.81 - OTHER MALAISE Status: Acute - Plan on thickened liq, encourage po intake, will need assistance for feeding -: freq oral care, calorie count, peg if not meeting atleast 50% of intake -: is on decadron, iv fluids, protinix, keppra -: clindamycin, nebs -: PT/OT to mobilize him as tolerated, prognosis guarded * . Review of Systems - Medications/Allergies Allergies/Adverse Reactions: Allergies Allergy/AdvReac Type Severity Reaction Status Date / Time No Known Drug Allergies Allergy Verified 03/02/19 20:29 Medications: Current Medications Acetaminophen (Tylenol) 650 mg PO Q4H PRN PRN Reason: Headache/Fever/Mild Pain (1-3) Acetaminophen (Tylenol) 650 mg [place] Q4H PRN PRN Reason: Headache/Fever/Mild Pain (1-3) Albuterol/Ipratropium (Duoneb) 3 ml NEB [id number] [facility] Last Admin: 03/05/19 06:48 Dose: 3 ml Bisacodyl (Dulcolax) 10 mg [place] DAILYPRN PRN PRN Reason: Constipation Dexamethasone (Decadron) 4 mg SLOW IVP QID [facility] Last Admin: 03/05/19 10:11 Dose: 4 mg Dextrose/Water (Dextrose 50%) 25 gm SLOW IVP PRN PRN PRN Reason: Hypoglycemia Enoxaparin Sodium (Lovenox) 40 mg SC 0900 [facility] Last Admin: 03/05/19 10:12 Dose: 40 mg Glucagon (Glucagon) 1 mg IM PRN PRN PRN Reason: Hypoglycemia Guaifenesin/Dextromethorphan (Robitussin Dm) 15 ml PO Q4H PRN PRN Reason: Cough Clindamycin Phosphate/Dextrose (600 mg/ Device) 50 mls @ 100 mls/hr IVPB Q8HR [facility] Last Admin: 03/05/19 05:18 Dose: 50 mls Dextrose/Water (D5w) 1,000 mls @ 0 mls/hr IV .Q0M PRN PRN Reason: Hypoglycemia Sodium Chloride (1/2 Normal Saline) 1,000 mls @ 100 mls/hr IV .Q10H [facility] Last Admin: 03/05/19 05:17 Dose: 1,000 mls Levetiracetam 500 mg/ Device 100 mls @ 200 mls/hr IVPB BID [facility] Last Admin: 03/05/19 10:31 Dose: 100 mls Insulin Glargine 10 units/ (Miscellaneous Medication) 0.1 mls @ 0 mls/hr SC BID [facility] Last Admin: 03/05/19 10:12 Dose: 0.1 mls Insulin Human Lispro (Humalog) 0 units SC .MODERATE SLIDING SC PRN PRN Reason: Moderate Correctional Scale Last Admin: 03/05/19 05:18 Dose: 6 unit Ondansetron HCl (Zofran) 4 mg IVP Q6H PRN PRN Reason: Nausea/Vomiting Pantoprazole Sodium (Protonix) 40 mg IVP Q12HR [facility] Last Admin: 03/05/19 10:15 Dose: 40 mg Senna/Docusate Sodium (Senokot S) 2 tab PO BID PRN PRN Reason: Constipation Last Admin: 03/05/19 05:19 Dose: 2 tab Sodium Chloride (Normal Saline Pf) 10 ml FS PRN PRN PRN Reason: RECONSTITUTION
[2019-03-06] MEDS: Sodium Chloride 0.45% 1,000 ML IV SCH ×2 (05:51→14:02)
[2019-03-06] MEDS: Clindamycin/D5W 600 MG in Premix Bag 1 BAG IVPB SCH ×3 (05:52→21:09)
[2019-03-06] MEDS: HumaLOG 300 UNITS/3 ML VIAL SC PRN ×2 (05:54→17:17)
[2019-03-06] MEDS: Insulin Glargine 10 UNITS in Pre-Filled Syringe SC SCH ×2 (08:19→20:50)
[2019-03-06] MEDS: Dexamethasone 4 mg/ml Vial SLOW IVP SCH ×3 (08:19→21:10)
[2019-03-06] MEDS: Enoxaparin Sodium 40 MG/0.4 ML SYRINGE SC SCH (08:19)
[2019-03-06] MEDS: Pantoprazole 40 MG VIAL IVP SCH ×2 (08:19→20:39)
--- NOTE | 2019-03-06 11:40 | PRG ---
DATE OF SERVICE: 03/06/2019 I saw Mr. Hawkins in this hospital room this morning. He is continuing the steroids and we will taper them down later today to 3 mg q.6. Overnight, Mr. Hawkins voice seemed to improve. He had some more liquid yesterday, but nothing thickened and no solids yet. His calorie count I am sure is quite low. I do not find any new neurological deficit, but he has dense right hemiparesis from prior stroke. His legs are weak and has hand dysfunction on the left side. None of this is any different than what it was before surgery. We are awaiting on swallowing to improve, but with his calorie count significantly low, I think he has a better chance of recovery with the feeding tube. We will give him few more days of steroid medication to see if this allows him to turn the corner and start more aggressive speech, occupational, and physical therapy. Job ID: [id number]
--- NOTE | 2019-03-06 13:55 | PDOC.PN ---
- Subjective Encounter Start Date: 03/06/19 Encounter Start Time: 13:53 Mr. Hawkins was seen today in follow-up of dysphagia following anterior cervical disckectomy. He continues to have a significant amount of dysphagia. He has damian been able to take in a small amount of water despite the current treatment. - Objective Resuscitation Status - Order Detail: 03/02/19 19:19 Resuscitation Status Routine Resuscitation Status: FULL: Full Resuscitation Discussed with: POA: sister Ms.Anita DEL ANGEL Reviewed: Yes Vital Signs & Weight: Vital Signs (12 hours) Temp Pulse Resp BP Pulse Ox 03/06/19 13:25 78 16 100 03/06/19 08:00 97.8 F 88 18 101/64 99 03/06/19 06:44 78 14 100 Weight Admit Weight 134 lb 7.712 oz Weight 134 lb 7.712 oz I&O: 03/05/19 03/06/19 03/07/19 06:59 06:59 06:59 Intake Total 2450 1210 Balance 2450 1210 Result Diagrams: 03/03/19 04:54 03/05/19 05:34 Additional Labs: Accuchecks 03/06/19 03/06/19 03/05/19 12:06 04:25 19:33 POC Glucose 122 H 215 H 223 H 03/05/19 15:41 POC Glucose 197 H Phys Exam - Physical Examination HEENT: PERRLA Respiratory: no wheezing, no rales + occasional rhonchi Cardiovascular: RRR, no significant murmur, no rub Gastrointestinal: soft, non-tender, no distention, positive bowel sounds Musculoskeletal: no edema, pulses present Dx/Plan (1) Dysphagia Code(s): R13.10 - DYSPHAGIA, UNSPECIFIED Status: Acute Qualifiers: Dysphagia type: unspecified Qualified Code(s): R13.10 - Dysphagia, unspecified (2) Aspiration pneumonia Code(s): J69.0 - PNEUMONITIS DUE TO INHALATION OF FOOD AND VOMIT Status: Acute Qualifiers: Laterality: right Lung location: upper lobe of lung (3) Severe dehydration Code(s): E86.0 - DEHYDRATION Status: Acute Comment: with electrolyte abnormalities, improving (4) DM2 (diabetes mellitus, type 2) Status: Chronic Qualifiers: 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 mellitus 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 insulin use: without chcf use (5) HTN (hypertension) Code(s): I10 - ESSENTIAL (PRIMARY) HYPERTENSION Status: Chronic Qualifiers: Hypertension type: essential hypertension Comment: controlled (6) History of CVA (cerebrovascular accident) Code(s): Z86.73 - PRSNL HX OF TIA (TIA), AND CEREB INFRC W/O RESID DEFICITS Status: Chronic Comment: with right hemiplegia (7) Seizure Status: Chronic - Plan * Dysphagia- as a result of pharyngeal swelling post ACD.- continue IV steroids * He has not been able to take in any nutrition in several days-will place a DHT * Aspiration Pneumonia- continue Clindamycin * HTN- blood pressure is stable * DM- blood glucose is stable * Seizure disorder- continue Keppra IV * Post CVA- with right sided hemiparesis- stable .
--- NOTE | 2019-03-06 14:39 | RAD ---
XR Abdomen 1 View/KUB HISTORY: Evaluation of Dobbhoff tube placement COMPARISON: None. FINDINGS: A high KUB was performed to evaluate the Dobbhoff tube. The feeding tube overlies the body region of the stomach. IMPRESSION: Dobbhoff feeding tube in stomach.
[2019-03-06] MEDS ORDERED: Pancrelipase DR 12000 1 CAP FS PRN (16:34)
[2019-03-06] MEDS ORDERED: Sodium Bicarbonate Tab 325 MG TAB PER TUBE PRN (16:34)
[2019-03-06 17:20] LABS: Magnesium 1.3 mg/dL (1.6-2.6); Phosphorus 2.8 mg/dL (2.3-4.7)
[2019-03-07] MEDS: Sodium Chloride 0.45% 1,000 ML IV SCH ×4 (02:52→21:33)
[2019-03-07] MEDS: Clindamycin/D5W 600 MG in Premix Bag 1 BAG IVPB SCH ×3 (05:34→21:33)
[2019-03-07] MEDS: Dexamethasone 4 mg/ml Vial SLOW IVP SCH ×3 (05:34→21:39)
[2019-03-07] MEDS: HumaLOG 300 UNITS/3 ML VIAL SC PRN ×4 (05:35→20:24)
--- NOTE | 2019-03-07 07:36 | PRG ---
DATE OF SERVICE: 03/07/2019 He tells me his voice is improved. His swallowing is getting better, but he has not had any food. The nasogastric tube has been placed and he is on tube feeds currently with his head of bed up. I do not find any changes on his neurological examination. We will leave the steroids at 3 mg q.6 hours for the next 2 days and going down to 2 mg for 3 days thereafter and 1 mg for 3 days thereafter, tapering slowly off the Decadron, but keeping him on Protonix. We will continue to follow him. Job ID: [id number]
[2019-03-07] MEDS: Pantoprazole 40 MG VIAL IVP SCH ×2 (08:28→20:16)
[2019-03-07] MEDS: Enoxaparin Sodium 40 MG/0.4 ML SYRINGE SC SCH (08:30)
[2019-03-07] MEDS: Insulin Glargine 10 UNITS in Pre-Filled Syringe SC SCH ×2 (10:32→20:19)
--- NOTE | 2019-03-07 12:45 | PDOC.PN ---
- Subjective Encounter Start Date: 03/07/19 Encounter Start Time: 12:44 Mr. Hawkins was seen today in follow-up of Dysphagia following Anterior disckectomy. He has less pain today. He is tolerating the tube feeds. - Objective Resuscitation Status - Order Detail: 03/02/19 19:19 Resuscitation Status Routine Resuscitation Status: FULL: Full Resuscitation Discussed with: POA: sister Ms.Anita DEL ANGEL Reviewed: Yes Vital Signs & Weight: Vital Signs (12 hours) Temp Pulse Resp BP Pulse Ox 03/07/19 08:20 94 L 03/07/19 08:00 97.8 F 75 18 140/62 94 L 03/07/19 06:35 74 14 100 Weight Admit Weight 134 lb 7.712 oz Weight 134 lb 7.712 oz I&O: 03/06/19 03/07/19 03/08/19 06:59 06:59 06:59 Intake Total 1210 3138 30 Balance 1210 3138 30 Result Diagrams: 03/03/19 04:54 03/05/19 05:34 Additional Labs: Accuchecks 03/07/19 03/07/19 03/06/19 12:02 04:32 16:53 POC Glucose 234 H 217 H 153 H Phys Exam - Physical Examination HEENT: PERRLA Respiratory: no wheezing, no rales, no rhonchi, clear to auscultation bilateral Cardiovascular: RRR, no significant murmur, no rub Gastrointestinal: soft, non-tender, no distention, positive bowel sounds Musculoskeletal: no edema, pulses present + right hemiparesis Dx/Plan (1) Dysphagia Code(s): R13.10 - DYSPHAGIA, UNSPECIFIED Status: Acute Qualifiers: Dysphagia type: unspecified Qualified Code(s): R13.10 - Dysphagia, unspecified (2) Aspiration pneumonia Code(s): J69.0 - PNEUMONITIS DUE TO INHALATION OF FOOD AND VOMIT Status: Acute Qualifiers: Laterality: right Lung location: upper lobe of lung (3) Severe dehydration Code(s): E86.0 - DEHYDRATION Status: Acute Comment: with electrolyte abnormalities, improving (4) DM2 (diabetes mellitus, type 2) Status: Chronic Qualifiers: Diabetes mellitus intermediate frame tender insulin use: without correction use (5) HTN (hypertension) Code(s): I10 - ESSENTIAL (PRIMARY) HYPERTENSION Status: Chronic Qualifiers: Hypertension type: essential hypertension Comment: controlled (6) History of CVA (cerebrovascular accident) Code(s): Z86.73 - PRSNL HX OF TIA (TIA), AND CEREB INFRC W/O RESID DEFICITS Status: Chronic Comment: with right hemiplegia (7) Seizure Status: Chronic - Plan * Dysphagia- continue DHT feedings for now. Continue IV steroids. Hopefully in a few more days the swelling will improve enough for him to take in oral nutrition * Aspiration Pneumonia- continue clindamycin a few more days * HTN- blood pressure is stable * Seizure disorder- continue Keppra IV * Hypomagnesemia- replace magnesium * DM- blood glucose is stable - continue SSI.
[2019-03-08] MEDS: Dexamethasone 4 mg/ml Vial SLOW IVP SCH ×3 (06:23→22:27)
[2019-03-08] MEDS: Clindamycin/D5W 600 MG in Premix Bag 1 BAG IVPB SCH ×3 (06:23→22:27)
[2019-03-08] MEDS: HumaLOG 300 UNITS/3 ML VIAL SC PRN ×4 (06:24→20:26)
[2019-03-08 07:20] LABS: Anion Gap 15 mmol/L (10-20); BUN (Urea Nitrogen) 14 mg/dL (8.4-25.7); Calc. Creatinine Clearance 100 mL/min (70-130); Carbon Dioxide 19 mmol/L (22-29); Chloride 107 mmol/L (98-107); Estimated GFR-MDRD Greater than 90; Glucose 287 mg/dL (70-105); Magnesium 1.6 mg/dL (1.6-2.6); Potassium 4.5 mmol/L (3.5-5.1); Sodium 136 mmol/L (136-145)
[2019-03-08] MEDS: Sodium Chloride 0.45% 1,000 ML IV SCH (08:44)
[2019-03-08] MEDS: Pantoprazole 40 MG VIAL IVP SCH ×2 (08:47→20:23)
[2019-03-08] MEDS: Enoxaparin Sodium 40 MG/0.4 ML SYRINGE SC SCH (08:48)
[2019-03-08] MEDS: Insulin Glargine 10 UNITS in Pre-Filled Syringe SC SCH ×2 (08:49→20:26)
--- NOTE | 2019-03-08 09:54 | PRG ---
DATE OF SERVICE: 03/08/2019 Mr. Hawkins is 6 days in the hospital now following dysphagia and dehydration. He had feeding tube placed nasally 2 days ago and has tolerated them well. He is up to full nutritional value. Last night when I speak with him, there are no neurologic changes. However, in the last day, he has not tried any oral intake. He states that he is doing well, but that he did have some suction yesterday for oral secretions. We are tapering the Decadron; however, a permanent feeding tube may need to be placed. Job ID: [id number]
--- NOTE | 2019-03-08 09:57 | PRG ---
DATE OF SERVICE: 03/08/2019 I saw Mr. Hawkins in his hospital room this morning. His voice sounds a bit better, but he is not taking anything p.o. since the NG tube was placed. This may mean that he would benefit from gastrostomy placement. Anticipate this would be a temporary maneuver probably over the next 2 to 4 perhaps 6 weeks before it can be removed and he is eating again. Speech Therapy will be quite beneficial in regaining swallowing function as the swallowing from surgery dissipates. Job ID: [id number]
--- NOTE | 2019-03-08 12:13 | PDOC.PN ---
- Subjective Encounter Start Date: 03/08/19 Encounter Start Time: 12:11 Mr. Hawkins was seen today in follow-up of dysphagia following ACD. He denies any throat pain today. He denies chest pain or difficulty breathing. - Objective Resuscitation Status - Order Detail: 03/02/19 19:19 Resuscitation Status Routine Resuscitation Status: FULL: Full Resuscitation Discussed with: POA: sister Ms.Anita DEL ANGEL Reviewed: Yes Vital Signs & Weight: Vital Signs (12 hours) Temp Pulse Resp BP Pulse Ox 03/08/19 11:49 97.9 F 66 20 178/92 H 96 03/08/19 08:40 97 03/08/19 08:00 98.0 F 80 20 173/99 H 97 03/08/19 01:19 80 18 97 Weight Admit Weight 134 lb 7.712 oz Weight 134 lb 7.712 oz I&O: 03/07/19 03/08/19 03/09/19 06:59 06:59 06:59 Intake Total 3138 3722 30 Balance 3138 3722 30 Result Diagrams: 03/03/19 04:54 03/08/19 05:28 Additional Labs: Accuchecks 03/08/19 03/08/19 03/07/19 11:50 04:54 19:30 POC Glucose 196 H 249 H 201 H 03/07/19 03/07/19 17:01 12:02 POC Glucose 204 H 234 H Phys Exam - Physical Examination HEENT: PERRLA Respiratory: no wheezing, no rales, no rhonchi, clear to auscultation bilateral Cardiovascular: RRR, no significant murmur, no rub Gastrointestinal: soft, non-tender, no distention, positive bowel sounds Musculoskeletal: no edema, pulses present + right sided hemiparesis Dx/Plan (1) Dysphagia Code(s): R13.10 - DYSPHAGIA, UNSPECIFIED Status: Acute Qualifiers: Dysphagia type: unspecified Qualified Code(s): R13.10 - Dysphagia, unspecified (2) Aspiration pneumonia Code(s): J69.0 - PNEUMONITIS DUE TO INHALATION OF FOOD AND VOMIT Status: Acute Qualifiers: Laterality: right Lung location: upper lobe of lung (3) Severe dehydration Code(s): E86.0 - DEHYDRATION Status: Acute Comment: with electrolyte abnormalities, improving (4) DM2 (diabetes mellitus, type 2) Status: Chronic Qualifiers: Diabetes mellitus 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 insulin use: without intermodal 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 use (5) HTN (hypertension) Code(s): I10 - ESSENTIAL (PRIMARY) HYPERTENSION Status: Chronic Qualifiers: Hypertension type: essential hypertension Comment: controlled (6) History of CVA (cerebrovascular accident) Code(s): Z86.73 - PRSNL HX OF TIA (TIA), AND CEREB INFRC W/O RESID DEFICITS Status: Chronic Comment: with right hemiplegia (7) Seizure Status: Chronic - Plan * Dysphagia following ACD- continue NG tube feeding- encourage him to try swallowing as tolerated * HTN - blood pressure is labile- will continue to monitor * DM- blood glucose is stable * Seizure disorder- stable- continue Keppra IV.
[2019-03-09] MEDS: Clindamycin/D5W 600 MG in Premix Bag 1 BAG IVPB SCH ×2 (05:03→14:18)
[2019-03-09] MEDS: Dexamethasone 4 mg/ml Vial SLOW IVP SCH ×3 (05:03→20:46)
[2019-03-09] MEDS: HumaLOG 300 UNITS/3 ML VIAL SC PRN ×3 (05:07→17:43)
--- NOTE | 2019-03-09 06:48 | PRG ---
DATE OF SERVICE: Mr. Yehuda Hawkins is a 58-year-old male who is here for dehydration and dysphagia. A nasogastric tube was placed 2 days ago. He is getting tube feeds and tolerating them well. He is speaking better more clearly, but still not swallowing anything. His vital signs have been stable. There are no new events recorded last night. The patient may need to have placement of a more permanent feeding tube in hopes of a longer-term solution, but not permanent. Job ID: [id number]
--- NOTE | 2019-03-09 07:11 | PRG ---
DATE OF SERVICE: 03/09/2019 I saw Mr. Hawkins in his hospital room this morning. He feels a bit better than yesterday even. He has no new complaints. I do not see any fevers recorded among his vital signs and rest look stable to me. Mr. Hawkins has a stable neurological deficits from before his prior operation and no new weakness. His voice is clear and stronger today than it has been for me recently. He does not report swallowing yesterday. Mr. Hawkins needs tube feed support for the next few weeks and a temporary PEG placement seems like a reasonable thing to do. We will continue to taper the Decadron slowly. We will go down to 2 mg every 6 hours starting tomorrow. Job ID: [id number]
[2019-03-09] MEDS: Enoxaparin Sodium 40 MG/0.4 ML SYRINGE SC SCH (08:39)
[2019-03-09] MEDS: Pantoprazole 40 MG VIAL IVP SCH ×2 (08:44→20:46)
[2019-03-09] MEDS: Insulin Glargine 14 UNITS in Pre-Filled Syringe 1 EACH SC SCH ×2 (08:50→20:46)
--- NOTE | 2019-03-09 15:58 | CON ---
DATE OF CONSULTATION: 03/09/2019 REASON FOR CONSULTATION: Oropharyngeal dysphagia. Neurosurgery has asked that we see for possible PEG tube placement as he has been having dysphagia after anterior cervical fusion. HISTORY OF PRESENT ILLNESS: Mr. Hawkins is a 58-year-old gentleman, who was admitted to the hospital on the . He had an anterior cervical diskectomy and fusion after injury from falling out of his bed on February 19. He was discharged to [facility] for further recuperation, but there, he had some difficulty swallowing. He was choking both on liquids and pureed foods and was not getting much in. He has been on steroid here and he has not had improvement over the weekend. Neurosurgery saw him back today and felt that he would be best served with a temporary PEG tube over the next few weeks. Review of systems; no throat pain, no hematemesis, no nausea, no vomiting. He denies having any problems with dysphagia after his previous stroke two years ago. The details surrounding his fall on February 19 are unclear. It apparently involved rolling out of bed, striking his face in the ground. MRI showed no evidence of new strokes, but he did have severe stenosis and edema in the spinal cord at that time that led to the initial surgery on February 19. 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 MEDICATIONS: Prior to admission; 1. Glipizide. 2. Keppra. 3. Lisinopril. 4. Pioglitazone. 5. Metformin. 6. Simvastatin. 7. Tizanidine. 8. Tylenol No. 3. ALLERGIES: NONE KNOWN. SOCIAL HISTORY: The patient's sister is here. She watches over him. He was at [facility] prior to this admission. He does not smoke or use drugs, and does not drink. FAMILY HISTORY: His mother with renal failure and diabetes. Father at age 87 of natural causes. PRESENT MEDICATIONS: 1. P.r.n. Tylenol. 2. Clindamycin 100 mg IV q.8. 3. Decadron 4 mg IV b.i.d., slow push. 4. Lovenox. 5. P.r.n. glucagon. 6. Sliding scale insulin. 7. Levetiracetam 500 mg b.i.d. 8. P.r.n. Zofran. 9. Protonix. 10. Senokot-S. REVIEW OF SYSTEMS: Negative for odynophagia. Negative for fever or chills. Negative for cough. Negative for shortness of breath. Negative for abdominal pain. No prior history of abdominal surgeries. LABORATORY DATA: White count was 10 on the 16th, hemoglobin 10.5, platelet count 213. BMP normal except for glucose 287. ASSESSMENT: Oropharyngeal dysphagia after recent fall with cervical spine injury and semi-emergent ACDF. Despite conservative measures since his surgery on the , he was not improving. He was admitted here with some dehydration and really difficulty swallowing. He has had a Dobhoff tube placed. He has not really responded to Decadron over the weekend and Neurosurgery feels that he would benefit from PEG tube placement, which shall be temporary. Discussed the risks, benefits, and possible complications of PEG tube placement including perforation, bleeding, reaction to medication, aspiration, infection, and anesthetic complications with the patient and family. He will also need stay in for 6 weeks even his falling has improved, so he can all heal in place before it is removed. The patient's sister and the patient himself wanted to go ahead and proceed with that, and we will go ahead and set that up for tomorrow. We will hold the Lovenox tomorrow morning's dose. Job ID: [id number]
--- NOTE | 2019-03-09 17:45 | PDOC.PN ---
- Subjective Encounter Start Date: 03/09/19 Encounter Start Time: 13:20 Mr. Hawkins was seen today in follow-up of dysphagia following ACD. He says he has less pain in his throat, but he is not able to swallow well. - Objective Resuscitation Status - Order Detail: 03/02/19 19:19 Resuscitation Status Routine Resuscitation Status: FULL: Full Resuscitation Discussed with: POA: sister Ms.Anita DEL ANGEL Reviewed: Yes Vital Signs & Weight: Vital Signs (12 hours) Temp Pulse Resp BP Pulse Ox 03/09/19 13:54 76 14 03/09/19 08:00 98 03/09/19 07:18 76 14 03/09/19 07:06 97.9 F 66 20 154/87 H 98 Weight Admit Weight 134 lb 7.712 oz Weight 134 lb 7.712 oz I&O: 03/08/19 03/09/19 03/10/19 06:59 06:59 06:59 Intake Total 3722 2570 60 Balance 3722 2570 60 Result Diagrams: 03/03/19 04:54 03/08/19 05:28 Additional Labs: Accuchecks 03/09/19 03/09/19 03/09/19 16:54 12:14 04:58 POC Glucose 237 H 278 H 280 H 03/08/19 20:09 POC Glucose 242 H Phys Exam - Physical Examination HEENT: PERRLA Respiratory: no wheezing, no rales, no rhonchi, clear to auscultation bilateral Cardiovascular: RRR, no significant murmur, no rub Gastrointestinal: soft, non-tender, no distention, positive bowel sounds Musculoskeletal: no edema, pulses present Dx/Plan (1) Dysphagia Code(s): R13.10 - DYSPHAGIA, UNSPECIFIED Status: Acute Qualifiers: Dysphagia type: unspecified Qualified Code(s): R13.10 - Dysphagia, unspecified (2) Aspiration pneumonia Code(s): J69.0 - PNEUMONITIS DUE TO INHALATION OF FOOD AND VOMIT Status: Acute Qualifiers: Laterality: right Lung location: upper lobe of lung (3) Severe dehydration Code(s): E86.0 - DEHYDRATION Status: Acute Comment: with electrolyte abnormalities, improving (4) DM2 (diabetes mellitus, type 2) Status: Chronic Qualifiers: Diabetes mellitus usp insulin use: without termite exterminator use (5) HTN (hypertension) Code(s): I10 - ESSENTIAL (PRIMARY) HYPERTENSION Status: Chronic Qualifiers: Hypertension type: essential hypertension Comment: controlled (6) History of CVA (cerebrovascular accident) Code(s): Z86.73 - PRSNL HX OF TIA (TIA), AND CEREB INFRC W/O RESID DEFICITS Status: Chronic Comment: with right hemiplegia (7) Seizure Status: Chronic - Plan * Dysphagia following ACD- continue steroids, and DHT feeding * He has not been able to take in much by mouth * Neurosurgery is recommending PEG tube placement for a short while * Will consult GI * HTN- blood pressure is a bit elevated now, but mostly stable * Aspiration pneumonia- he has received a complete antibiotic course - will discontinue Clindamycin * Seizure disorder- stable.
--- NOTE | 2019-03-10 08:12 | PRG ---
DATE OF SERVICE: 03/10/2019 Mr. Hawkins has been scheduled for gastrostomy placement. He had no events overnight. Reports that he has not been out of his bed since being in the hospital. I do not see a fever recorded among the vital signs and his vitals are relatively stable, although at times, his blood pressure goes up to 170s. I do not find any changes on his neurological examination. His neck incision is still healing well. Mr. Hawkins will heal faster with the increased calorie intake through the gastrostomy. The neck swelling related to surgery will taper off over the coming weeks and the gastrostomy will likely be able to be removed. He will need speech therapy, physical therapy and occupational therapy. I think a MEDIchair placement to just to get him out of bed and change the pressure points of his body. It is a reasonable thing to do. I hate to see him get a decubitus or have trouble fighting off his pneumonia because of lack of motion. Job ID: [id number] MTDD
[2019-03-10] MEDS: Dexamethasone 4 mg/ml Vial SLOW IVP SCH ×2 (08:27→21:01)
[2019-03-10] MEDS: Enoxaparin Sodium 40 MG/0.4 ML SYRINGE SC SCH (08:31)
[2019-03-10] MEDS: Pantoprazole 40 MG VIAL IVP SCH ×2 (08:31→21:01)
[2019-03-10] MEDS: Insulin Glargine 14 UNITS in Pre-Filled Syringe 1 EACH SC SCH ×2 (08:48→21:55)
[2019-03-10] MEDS ORDERED: CEFAZOLIN 2 GM in Sodium Chloride 0.9% 100 ML IVPB SCH (13:00)
--- NOTE | 2019-03-10 15:05 | OP ---
DATE OF PROCEDURE: 03/10/2019 PROCEDURES PERFORMED: Esophagogastroduodenoscopy with percutaneous endoscopic gastrostomy tube placement. PREMEDICATION: Given by Anesthesiology Department. PREPROCEDURE DIAGNOSIS: Oropharyngeal dysphagia. POSTPROCEDURE DIAGNOSES: 1. Normal upper endoscopy. 2. Status post placement of 20-Azeri gastrostomy feeding tube. DESCRIPTION OF PROCEDURE: Written consents were obtained prior to procedure. After adequate sedation, the forward-viewing endoscope was advanced down the stomach and under direct vision to the second portion of duodenum. The duodenum appeared normal. The stomach was insufflated and appeared normal. The pulses patent. The GE junction and esophagus appeared normal. A site was selected along the left upper quadrant with good transillumination and ballottement. The area was cleaned with Betadine and anesthetized with 1% xylocaine. A small incision was made. The trocar was then introduced into the gastric lumen. The guidewire was then fed through and grasped with a snare and brought out along with the endoscope. The external latch was then firmly secured. Repeat endoscopy performed good placement. The patient tolerated the procedure well without any complication. ASSESSMENT: Status post placement of 20-Azeri gastrostomy feeding tube. RECOMMENDATION: Resume tube feeding later today. Job ID: [id number]
--- NOTE | 2019-03-10 15:12 | PDOC.HOSPP ---
- Subjective Subjective: Mr. Hawkins was seen today in follow-up of dysphagia following ACD. He says his throat is feeling better. He has less discomfort. - Objective Vital Signs & Weight: Vital Signs (12 hours) Temp Pulse Pulse Resp BP BP BP 03/10/19 12:02 97.6 F 79 16 124/80 03/10/19 08:40 78 156/88 H 03/10/19 08:22 98.1 F 78 16 156/88 H 03/10/19 08:00 03/10/19 06:52 59 L 16 Pulse Ox Pulse Ox 03/10/19 12:02 100 03/10/19 08:40 99 03/10/19 08:22 99 03/10/19 08:00 99 03/10/19 06:52 99 Weight Admit Weight 134 lb 7.712 oz Weight 134 lb 7.712 oz I&O: 03/09/19 03/10/19 03/11/19 06:59 06:59 06:59 Intake Total 2570 535 Balance 2570 535 Result Diagrams: 03/03/19 04:54 03/08/19 05:28 Additional Labs: Accuchecks 03/10/19 03/10/19 03/10/19 13:04 11:32 04:35 POC Glucose 150 H 133 H 221 H 03/10/19 03/09/19 03/09/19 02:40 19:46 16:54 POC Glucose 217 H 214 H 237 H ROS - Review of Systems All systems: All other ROS were reviewed and found negative. - Medication Medications: Active Medications Generic Name Dose Route Start Last Admin Trade Name Lila PRN Reason Stop Dose Admin Albuterol/Ipratropium 3 ml 03/03/19 01:00 03/10/19 13:55 Duoneb NEB Not Given [id number] GRECIA Dexamethasone 4 mg 03/09/19 09:00 03/10/19 08:27 Decadron SLOW IVP 4 mg BID GRECIA Administration Enoxaparin Sodium 40 mg 03/03/19 09:00 03/10/19 08:31 Lovenox SC Not Given 0900 GRECIA Levetiracetam 500 mg/ Device 100 mls @ 200 mls/hr 03/03/19 21:00 03/10/19 10: 02 IVPB 100 mls BID GRECIA Administration Insulin Glargine 14 units/ 0.14 mls @ 0 mls/hr 03/09/19 21:00 03/09/19 20:46 Miscellaneous Medication SC 0.14 mls HS GRECIA Administration Insulin Glargine 14 units/ 0.14 mls @ 0 mls/hr 03/09/19 09:00 03/10/19 08:48 Miscellaneous Medication SC Not Given QAM GRECIA Insulin Human Lispro 0 units 03/02/19 19:24 03/09/19 17:43 Humalog SC 4 unit .MODERATE SLIDING SC PRN Administration Moderate Correctional Scale Pantoprazole Sodium 40 mg 03/03/19 09:00 03/10/19 08:31 Protonix IVP 40 mg Q12HR GRECIA Administration Senna/Docusate Sodium 2 tab 03/02/19 19:24 03/05/19 05:19 Senokot S PO 2 tab BID PRN Administration Constipation Sodium Chloride 10 ml 03/03/19 06:50 03/09/19 20:46 Normal Saline Pf FS 10 ml PRN PRN Administration RECONSTITUTION - Exam Eye: PERRL, anicteric sclera Heart: RRR, no murmur, no gallops Respiratory: CTAB, no wheezes, no rales, no ronchi Gastrointestinal: soft, non-tender, non-distended Neurological: negative: CN's grossly intact, normal sensation to touch, no weakness, no focal deficits (Right hemiplegia), no new deficit, facial droop, hemiplegia, speech deficit, vision deficit Hosp A/P (1) Dysphagia Code(s): R13.10 - DYSPHAGIA, UNSPECIFIED Status: Acute Qualifiers: Dysphagia type: unspecified Qualified Code(s): R13.10 - Dysphagia, unspecified (2) Aspiration pneumonia Code(s): J69.0 - PNEUMONITIS DUE TO INHALATION OF FOOD AND VOMIT Status: Resolved Qualifiers: Laterality: right Lung location: upper lobe of lung (3) Severe dehydration Code(s): E86.0 - DEHYDRATION Status: Resolved (4) DM2 (diabetes mellitus, type 2) Status: Chronic Qualifiers: Diabetes mellitus skilled nursing insulin use: without intermodal owner operator truck driver use (5) HTN (hypertension) Code(s): I10 - ESSENTIAL (PRIMARY) HYPERTENSION Status: Chronic Qualifiers: Hypertension type: essential hypertension (6) History of CVA (cerebrovascular accident) Code(s): Z86.73 - PRSNL HX OF TIA (TIA), AND CEREB INFRC W/O RESID DEFICITS Status: Chronic (7) Seizure Status: Chronic - Plan * Dysphagia- due to pharyngeal swelling post ACD. Continue IV steroids, and he will go for PEG tube placement today * DM- Blood glucose is a bit better today * Seizure disorder- stable * HTN- blood pressure is a bit labile but overall stable * He has complated therapy for aspiration pneumonia
[2019-03-11] MEDS: HumaLOG 300 UNITS/3 ML VIAL SC PRN (05:46)
[2019-03-11] MEDS: Insulin Glargine 14 UNITS in Pre-Filled Syringe 1 EACH SC SCH ×2 (10:34→20:32)
[2019-03-11] MEDS: Dexamethasone 4 MG TAB PO SCH ×3 (11:07→20:32)
[2019-03-11] MEDS: Enoxaparin Sodium 40 MG/0.4 ML SYRINGE SC SCH (11:10)
[2019-03-11] MEDS: Pantoprazole 40 MG VIAL IVP SCH ×2 (11:10→20:32)
--- NOTE | 2019-03-11 11:39 | PDOC.HOSPP ---
- Subjective Subjective: Patient seen and examined. No new complaints. No overnight events - Objective Vital Signs & Weight: Vital Signs (12 hours) Temp Pulse Resp BP Pulse Ox 03/11/19 07:51 98.1 F 92 16 95/60 100 03/11/19 06:59 68 12 03/10/19 23:41 98 Weight Admit Weight 134 lb 7.712 oz Weight 134 lb 7.712 oz I&O: 03/10/19 03/11/19 03/12/19 06:59 06:59 06:59 Intake Total 535 1560 Balance 535 1560 Result Diagrams: 03/03/19 04:54 03/08/19 05:28 Additional Labs: Accuchecks 03/11/19 03/11/19 03/10/19 05:37 02:10 20:32 POC Glucose 185 H 166 H 127 H 03/10/19 03/10/19 03/10/19 16:46 13:04 11:32 POC Glucose 158 H 150 H 133 H ROS - Review of Systems All systems: All other ROS were reviewed and found negative. Constitutional: denies: fever, chills, sweats, weakness, malaise, other Eyes: denies: pain, vision change, conjunctivae inflammation, eyelid inflammation, redness, other ENT: denies: ear pain, ear discharge, nose pain, nose discharge, nose congestion , mouth pain, mouth swelling, throat pain, throat swelling, other Respiratory: denies: cough, dry, shortness of breath, hemoptysis, SOB with excertion, pleuritic pain, sputum, wheezing, other Cardiovascular: denies: chest pain, palpitations, orthopnea, paroxysmal noc. dyspnea, edema, light headedness, other Gastrointestinal: denies: nausea, vomitting, abdominal pain, diarrhea, constipation, melena, hematochezia, other Genitourinary: denies: dysuria, frequency, incontinence, hematuria, retention, other Musculoskeletal: denies: neck pain, shoulder pain, arm pain, back pain, hand pain, leg pain, foot pain, other - Medication Medications: Active Medications Generic Name Dose Route Start Last Admin Trade Name Freq PRN Reason Stop Dose Admin Albuterol/Ipratropium 3 ml 03/03/19 01:00 03/11/19 06:59 Duoneb NEB 3 ml [id number] GRECIA Administration Dexamethasone 2 mg 03/11/19 09:00 03/11/19 11:07 Decadron PO 03/14/19 09:01 2 mg TID GRECIA Administration Enoxaparin Sodium 40 mg 03/03/19 09:00 03/11/19 11:10 Lovenox SC 40 mg 0900 GRECIA Administration Levetiracetam 500 mg/ Device 100 mls @ 200 mls/hr 03/03/19 21:00 03/11/19 10: 34 IVPB 100 mls BID GRECIA Administration Insulin Glargine 14 units/ 0.14 mls @ 0 mls/hr 03/09/19 21:00 03/10/19 21:55 Miscellaneous Medication SC 0.14 mls HS GRECIA Administration Insulin Glargine 14 units/ 0.14 mls @ 0 mls/hr 03/09/19 09:00 03/11/19 10:34 Miscellaneous Medication SC 0.14 mls QAM GRECIA Administration Insulin Human Lispro 0 units 03/02/19 19:24 03/11/19 05:46 Humalog SC 2 unit .MODERATE SLIDING SC PRN Administration Moderate Correctional Scale Pantoprazole Sodium 40 mg 03/03/19 09:00 03/11/19 11:10 Protonix IVP 40 mg Q12HR GRECIA Administration Senna/Docusate Sodium 2 tab 03/02/19 19:24 03/05/19 05:19 Senokot S PO 2 tab BID PRN Administration Constipation Sodium Chloride 10 ml 03/03/19 06:50 03/09/19 20:46 Normal Saline Pf FS 10 ml PRN PRN Administration RECONSTITUTION - Exam NAD, awake alert ENT: normocephalic atraumatic, no oropharyngeal lesions Neck: supple, symmetric, no JVD, no Thyromegaly Heart: RRR, no murmur, no gallops, no rubs Respiratory: no wheezes, no rales, no ronchi Gastrointestinal: soft, non-tender, non-distended, normal bowel sounds Extremities: no clubbing, no edema Skin: normal turgor, no lesions Psychiatric: normal affect, normal behavior Hosp A/P (1) Dysphagia Code(s): R13.10 - DYSPHAGIA, UNSPECIFIED Status: Acute Qualifiers: Dysphagia type: oropharyngeal phase Qualified Code(s): R13.12 - Dysphagia, oropharyngeal phase Plan: peg tube placement, now continue tube feeding (2) Physical deconditioning Code(s): R53.81 - OTHER MALAISE Status: Chronic Plan: continue PT/OT (3) History of left below knee amputation Code(s): Z89.512 - ACQUIRED ABSENCE OF LEFT LEG BELOW KNEE Status: Chronic (4) Cord compression syndrome Code(s): G95.20 - UNSPECIFIED CORD COMPRESSION Status: Chronic (5) DM2 (diabetes mellitus, type 2) Status: Chronic Qualifiers: Diabetes mellitus [facility] insulin use: without [facility] use Plan: controlled (6) Dyslipidemia Code(s): E78.5 - HYPERLIPIDEMIA, UNSPECIFIED Status: Chronic (7) HTN (hypertension) Code(s): I10 - ESSENTIAL (PRIMARY) HYPERTENSION Status: Chronic Qualifiers: Hypertension type: essential hypertension (8) History of CVA (cerebrovascular accident) Code(s): Z86.73 - PRSNL HX OF TIA (TIA), AND CEREB INFRC W/O RESID DEFICITS Status: Chronic (9) Seizure Status: Chronic - Plan old records reviewed/req, PT/OT, licensed clinical social worker tube feeding as tolerated will go to [facility] on discharge
--- NOTE | 2019-03-11 13:31 | PRG ---
DATE OF SERVICE: 03/11/2019 Mr. Hawkins is day 9 in the hospital for delayed dysphagia following ACDF on February 19. He was dehydrated and lacking nutrition. With the addition of steroids, he has shown some improvement but not enough for proper oral intake. PEG tube was placed yesterday. I have seen Mr. Hawkins this morning. He is actually working with Physical Therapy. When I entered the room, they have him sitting on the edge of the bed. Mr. Hawkins is in good spirits. He is talking more clearly to me today and is happy to be working with therapy. There were no fevers recorded. No events overnight. We will continue to taper his Decadron when arrangements have been made for him to return to rehab and he has had good intake. There is no neurosurgical intervention that is necessary at this time. Job ID: [id number]
[2019-03-12] MEDS: HumaLOG 300 UNITS/3 ML VIAL SC PRN (05:30)
[2019-03-12 07:51] VITALS: BP 95/63; TEMP 98
[2019-03-12] MEDS: Insulin Glargine 14 UNITS in Pre-Filled Syringe 1 EACH SC SCH (09:02)
[2019-03-12] MEDS: Enoxaparin Sodium 40 MG/0.4 ML SYRINGE SC SCH (09:02)
[2019-03-12] MEDS: Pantoprazole 40 MG VIAL IVP SCH (09:03)
[2019-03-12] MEDS: Dexamethasone 4 MG TAB PO SCH ×2 (09:03→16:39)
--- NOTE | 2019-03-12 09:47 | PRG ---
DATE OF SERVICE: 03/11/2019 SUBJECTIVE: Mr. Hawkins had a PEG placed yesterday. He is tolerating tube feeds according to his nurse. OBJECTIVE: VITAL SIGNS: Temperature is 98, pulse is 92, blood pressure is 95/60 to 125/80. GENERAL: He is without complaints. He is resting. ABDOMEN: Soft and nontender. The PEG tube site looks clean and dry. LABORATORY DATA: None. ASSESSMENT: Status post PEG tube placement for oropharyngeal dysphagia related to recent cervical spine surgery and remote history of stroke. RECOMMENDATIONS: If he gets to where the swelling in the cervical spine region decreases to where he can eat again, then we can take the PEG tube out in the office. We will need to wait at least 6 weeks. DVT precautions. Job ID: [id number]
--- NOTE | 2019-03-12 12:10 | DIS ---
DATE OF ADMISSION: 03/02/2019 DATE OF DISCHARGE: 03/12/2019 PRIMARY CARE PHYSICIAN: Zak Call admission. DISCHARGE DISPOSITION: [facility]. PRIMARY DISCHARGE DIAGNOSES: 1. Oropharyngeal dysphagia, status post PEG tube placement. 2. Aspiration pneumonia, treated in the hospital. 3. Dehydration, corrected. SECONDARY DISCHARGE DIAGNOSES: 1. History of cerebrovascular accident. 2. Seizure disorder. 3. History of left below-knee amputation. 4. Hypertension. 5. Dyslipidemia. 6. Diabetes type 2. 7. Physical deconditioning. PRIMARY PROCEDURE/OPERATION: PEG tube placement. RADIOLOGICAL INVESTIGATION: Chest x-ray, soft tissue neck CT scan, abdomen x-ray. SIGNIFICANT LABORATORY DATA: Hemoglobin 10.5. Creatinine 0.70. DISCHARGE MEDICATIONS: 1. Glucotrol XL 5 mg per tube b.i.d. 2. Keppra 500 mg per tube b.i.d. 3. Lisinopril 10 mg per tube daily. 4. Metformin 1000 mg per tube b.i.d. 5. Pioglitazone 30 mg per tube daily. 6. Zocor 10 mg per tube at bedtime. 7. Tylenol No.3 one or two tablets q.6 hourly per tube as needed. 8. Decadron 2 mg t.i.d. for 2 days, then 2 mg b.i.d. for 5 days, then 1 mg b.i.d. for 5 days, and 1 mg daily for 5 days. 9. Lantus insulin 14 units subcu b.i.d. 10. Protonix 40 mg per tube daily. CONTRAINDICATION: None. CODE STATUS: Full code. INPATIENT TRAFFIC REPORTER: 1. Neurosurgery. 2. Gastroenterology. TEST RESULT PENDING ON DISCHARGE: None. ALLERGIES: NO KNOWN DRUG ALLERGIES. DISCHARGE PLAN: Post hospital, the patient will follow up with primary care physician. HOSPITAL COURSE: A 58-year-old male, who had a previous stroke, and he had recently an anterior cervical diskectomy performed, and after that, the patient was having worsening of oropharyngeal dysphagia. The patient was significantly dehydrated and that is why he was admitted in our hospital by Dr. Velasco. Please see his H and P for further details. This patient was hydrated with IV fluid. During this admission, we tried our possible way to hydrate him, but his oral function has not improved and that is why he required PEG tube placement for nutritional support and hydration. After PEG tube, the patient was tolerating PEG tube feeding well. He was more alert and up to his baseline level. Neurosurgery cleared him for discharge. The patient will continue to get PEG tube feeding and medication via PEG tube at [facility]. I have seen and examined the patient bedside today. His examination is pretty much baseline and stable. Paperwork for discharge done and discharge medication reconciliation done. Job ID: [id number]
--- NOTE | 2019-03-12 14:21 | PRG ---
DATE OF SERVICE: 03/12/2019 This is Ketan Dean PA-C dictating a report for Kwesi Cantu MD. Mr. Hawkins is seen in followup after he had a PEG tube placement for significant dysphagia. He will follow up with Dr. Campoverde and Divina at a later date. On exam today, he states he is tired, but does not complain of any pain. He has a stable neurologic exam and that he has significant right-sided weakness, but is antigravity in the left arm and leg. He is oriented to person, place, and time. He is ready for discharge at any time to rehab, but otherwise, he is stable from a neurosurgical perspective. He does not have any hoarseness on exam or any muffled voice tones. Job ID: [id number]
[2019-03-15] MEDS ORDERED: Dexamethasone 4 MG TAB PO SCH (09:00)
[2019-03-19] MEDS ORDERED: Dexamethasone 4 MG TAB PO SCH (09:00)
[2019-03-23] MEDS ORDERED: Dexamethasone 1 MG TAB PO SCH (09:00)
== END 2019-03-12 17:06 | DRG 391 ==
LOC: ERS 14:34 → T4-A 20:08
PROVIDERS: ADMIT Internal Medicine; ATTEND Internal Medicine
PROC: 0DH63UZ Insertion of Feeding Device into Stomach, Percutaneous Approach (ICD-10-PCS; principal; 2019-03-10)
PROC: 0DJ08ZZ Inspection of Upper Intestinal Tract, Via Natural or Artificial Opening Endoscopic (ICD-10-PCS; 2019-03-10)
DX: R13.12 Dysphagia, oropharyngeal phase (principal); J69.0 Pneumonitis due to inhalation of food and vomit; G95.20 Unspecified cord compression; I69.351 Hemiplegia and hemiparesis following cerebral infarction affecting right dominant side; G40.909 Epilepsy, unspecified, not intractable, without status epilepticus; E86.0 Dehydration; I10 Essential (primary) hypertension; L89.152 Pressure ulcer of sacral region, stage 2; E78.5 Hyperlipidemia, unspecified; E83.42 Hypomagnesemia; R53.81 Other malaise; Z89.512 Acquired absence of left leg below knee
CPT/HCPCS: 36415; 36416; 70491; 71045; 74018; 80048; 80053; 83605; 83735; 84100; 85025; 87040; 94640; 96360; 96361; C9113; J0690; J1100; J1650; J1815; J1953; J2920; J3475; J3490; J7620; J8540; Q9966; S0028

== ENCOUNTER 2019-03-16 12:59 | Observation (INO) | payer MEDICARE, MEDICAID ==
[2019-03-16] MEDS ORDERED: Dextrose 50% Abboject 50 ML SYRINGE ONE (13:16)
--- NOTE | 2019-03-16 13:48 | RAD ---
EXAM: Single view of the chest HISTORY: CVA with right-sided deficits COMPARISON: 03/02/2019 FINDINGS: Single view of the chest shows a normal sized cardiomediastinal silhouette. There is no paloma dence of consolidation, mass, or pleural effusion. The bones are unremarkable. IMPRESSION: No evidence of acute cardiopulmonary disease
[2019-03-16 14:31] LABS: ALT (SGPT) 22 U/L (8-55); AST (SGOT) 15 U/L (5-34); Albumin 3.2 g/dL (3.5-5.0); Alkaline Phosphatase 58 U/L (40-150); Anion Gap 13 mmol/L (10-20); BUN (Urea Nitrogen) 47 mg/dL (8.4-25.7); Bilirubin, Total 0.4 mg/dL (0.2-1.2); Calc. Creatinine Clearance 0 mL/min (70-130); Carbon Dioxide 25 mmol/L (22-29); Chloride 98 mmol/L (98-107); Estimated GFR-MDRD Greater than 90; Globulin 2.7 g/dL (2.4-3.5); Glucose 154 mg/dL (70-105); Lipase 61 U/L (8-78); Potassium 4.8 mmol/L (3.5-5.1); Protein, Total 5.9 g/dL (6.0-8.3); Sodium 131 mmol/L (136-145)
[2019-03-16] MEDS ORDERED: Metoclopramide HCl 10 MG/2 ML VIAL ONE (14:36)
[2019-03-16] MEDS ORDERED: Ondansetron PF 4 MG/2 ML Vial ONE (14:36)
[2019-03-16 15:52] LABS: Bilirubin Negative (Negative); Blood, Urine Negative (Negative); Clarity Clear (Clear); Glucose, Urine (Dipstick) Normal (Negative); Leukocyte Negative Leu/uL (Negative); Nitrite Negative (Negative); Protein, Urine (Dipstick) Negative (Neg-Trace); Urobilinogen Normal mg/dL (Less than 2)
[2019-03-16] MEDS ORDERED: Aspirin 325 MG TAB ONE (15:58)
[2019-03-16] MEDS ORDERED: Acetaminophen/Codeine 30-300mg Tablet ONE (16:01)
[2019-03-16 16:21] LABS: Hemoglobin 11.4 g/dL (14.0-18.0); Mean Corpuscular HGB CONC 34.2 g/dL (32.0-36.0); Mean Corpuscular Hemoglobin 28.9 pg (27.0-31.0); Mean Corpuscular Volume 84.6 fL (78.0-98.0); RBC Distribution Width 13.4 % (11.5-14.5); Red Blood Cell (RBC) Count 3.94 mill/uL (4.70-6.10)
[2019-03-16] MEDS ORDERED: Iopamidol 370 76% 50 ML VIAL FS ONE (16:23)
[2019-03-16 16:33] LABS: Band 2 % (5-11); Eosinophils 1 % (0-10); Lymphocytes 23 % (21-51); MDiff Complete? YES; Monocytes 7 % (0-10); Neutrophil 67 % (42-75); Platelet Clumps SLIGHT; Platelet Morphology Comment PLT clumps seen-ADEQ; Polychromasia SLIGHT = 2-3 cells (100X) (0-2/hpf)
[2019-03-16] MEDS ORDERED: Bisacodyl 10 MG SUPP PR PRN (17:04)
[2019-03-16] MEDS ORDERED: Senokot S 8.6-50 MG TAB PO PRN (17:04)
[2019-03-16] MEDS ORDERED: Guaifenesin DM 100-10/5 ML UDCUP PO PRN (17:04)
[2019-03-16] MEDS ORDERED: Acetaminophen 325 MG TAB PO PRN (17:04)
[2019-03-16] MEDS ORDERED: Dextrose 5% in Water 1,000 ML IV PRN (17:04)
[2019-03-16] MEDS ORDERED: Dextrose 50% Abboject 50 ML SYRINGE SLOW IVP PRN (17:04)
[2019-03-16 17:15] LABS: Troponin I Less than 0.010 ng/mL (< 0.028)
[2019-03-16] MEDS: Dextrose 5 % And 0.9 % NaCl 1,000 ML IV SCH (18:05)
[2019-03-16] MEDS ORDERED: Sodium Bicarbonate Tab 325 MG TAB PER TUBE PRN (19:08)
[2019-03-16] MEDS ORDERED: Pancrelipase DR 12000 1 CAP FS PRN (19:08)
--- NOTE | 2019-03-16 20:36 | HP ---
REASON FOR ADMISSION: Persistent hypoglycemia. HISTORY OF PRESENTING ILLNESS: Please note, the patient does not recall what happened at the halfway. He lives at [facility]. I called up the halfway and spoke to the nurse taking care of the patient. He got very cool, clammy skin and his fingerstick was 48. This was around 11:30 a.m. He had his PEG tube feeding at 9:00 in the morning. It is a Glucerna 1.2 Stalin bolus. He also had his Levemir dose in the morning. The patient was not looking good. They finally called his primary care physician and the patient was transferred to ER. He has been getting bolus feeding every 4 hours with Glucerna 1.2 Stalin. Yesterday, his fingerstick glucose readings were 41, 54, 60. He had such readings multiple times and primary care physician was called from the halfway. His Levemir was reduced from 14 units to 10 units twice daily. The patient is also on metformin 1 g daily, glipizide 5 mg twice daily, pioglitazone 30 mg daily along with Lantus 10 units twice daily at present. Mr. Braun is awake, alert, and responds to verbal questions. He has chronic right hemiplegia. He moves both his left upper and lower extremities. He has chronic deconditioning even on the left extremities. Mr. Yehuda Braun's brother and daughter are here at bedside. No fever, cough or expectoration, chest pain, palpitations, PND, or orthopnea. No urinary frequency or urgency. PAST MEDICAL AND SURGICAL HISTORY: 1. Had a PEG tube placed on the by Dr. Dill. 2. History of cervical radiculopathy with decompression done. 3. History of CVA with right hemiplegia 2 years back. 4. Diabetes mellitus type 2. 5. 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 6. Hypertension. 7. Dyslipidemia. 8. His anterior cervical diskectomy was done on 02/19/[address] Campoverde. 9. Dyslipidemia. CURRENT MEDICATIONS: The patient is on: 1. Decadron 1 mg twice daily. 2. Glipizide 5 mg twice daily. 3. Lantus 10 units subcu twice daily. 4. Keppra 500 mg twice daily. 5. Lisinopril 10 mg daily. 6. Metformin 1 g daily. 7. Protonix 40 mg daily. 8. Pioglitazone 30 mg daily. 9. Zocor 10 mg q.h.s. 10. Tylenol No. 3 q.6 hourly p.r.n. ALLERGIES: NO KNOWN DRUG ALLERGIES. PERSONAL HISTORY: He is currently residing at [facility]. Does not abuse alcohol or drugs. No history of smoking. FAMILY HISTORY: Mother is on dialysis, is legally blind and has diabetes. Father at the age of 87 years from natural causes. CODE STATUS: Full. Power of wood carving lathe operator is his sister, Ms. Victor. REVIEW OF SYSTEMS: CONSTITUTIONAL: Negative for weight loss or gain, ability to conduct usual activities. SKIN: Negative for rash, itching. EYES: Negative for double vision, pain. ENT/MOUTH: Negative for nose bleeding, neck stiffness, pain, tenderness. CARDIOVASCULAR: Negative for palpitations, dyspnea on exertion, orthopnea. RESPIRATORY: Negative for shortness of breath, wheezing, cough, hemoptysis, fever or night sweats. GASTROINTESTINAL: Negative for poor appetite, abdominal pain, heartburn, nausea , vomiting, constipation, or diarrhea. GENITOURINARY: Negative for urgency, frequency, dysuria, nocturia. MUSCULOSKELETAL: Negative for pain, swelling. NEUROLOGIC/PSYCHIATRIC: Negative for anxiety, depression. ALLERGY/IMMUNOLOGIC: Negative for skin rash, bleeding tendency. PHYSICAL EXAMINATION: GENERAL: The patient is a 58-year-old male, who is currently not in any acute distress. VITAL SIGNS: Blood pressure 100/70, pulse 86 per minute, respiratory rate 16 per minute, temperature 97.4 degrees Fahrenheit, saturating 97% on room air. NECK: Supple. No elevated JVD. HEENT: Eyes; extraocular muscles intact. Pupils reacting to light. Oral cavity; mucous membranes are dry. No exudates or congestion. CARDIOVASCULAR SYSTEM: S1 and S2 heard. Regular rhythm. RESPIRATORY SYSTEM: Air entry 1+ bilateral. No rales or rhonchi. ABDOMEN: The patient has voluntary guarding in the abdomen. There is PEG tube present. Abdomen appears to be mildly distended. The patient is holding his abdominal musculature tight despite repeated attempts to relax it. EXTREMITIES: No peripheral edema or calf tenderness. The patient has chronic right upper extremity flexion contracture. CENTRAL NERVOUS SYSTEM: Chronic right hemiplegia. No new deficits. His left upper and lower extremity strength is around 2 to 3/5. VASCULAR SYSTEM: Peripheral pulses 1+ bilateral. No ischemic ulcerations or gangrene. PSYCHIATRIC SYSTEM: No obvious hallucinations or delusions. LABORATORY DATA: Chest x-ray done in the ER on arrival shows no acute cardiopulmonary disease. White count of 10, H and H of 11 and 33, platelet count is pending at present, has 67% neutrophils, MCV is 84. Sodium 131, bicarb 25, BUN 47, creatinine 0.9, glucose 154. On arrival, fingerstick glucose was 38. A repeat fingerstick is 143. Albumin 3.2. Liver enzymes within normal limits. Lipase is 61. UA shows no evidence of infection. CLINICAL IMPRESSION AND PLAN: The patient will be under observation on telemetry for persistent hypoglycemia, likely due to multiple medications he is on. He will be on D5 normal saline at 75 mL/h until his fingerstick glucose is persistently above 200. We will also continue his Decadron 1 mg twice daily, which likely he is on a tapering dose due to previous hospitalization for dysphagia from anterior cervical diskectomy. The patient states he has not ambulated or stood up so far with therapy. He says he is working with them. He has not had any oral intake at the halfway so far. We will continue his Keppra, Zocor, Protonix as before. We will hold all his antihypertensive medications as well in view of blood pressure running around 100. We will obtain a CT of the abdomen and pelvis to rule out small bowel obstruction. The patient says he had a loose bowel movement yesterday evening. Cultures have been obtained for blood in the ER and we will obtain a urine culture as well. He is currently hemodynamically stable and does not appear to have any hypoglycemic injury to the central nervous system. Job ID: [id number] [facility]
[2019-03-16] MEDS ORDERED: Acetaminophen 325 MG TAB PER TUBE PRN (20:45)
[2019-03-16] MEDS ORDERED: Guaifenesin DM 100-10/5 ML UDCUP PER TUBE PRN (20:45)
[2019-03-16] MEDS ORDERED: Senokot S 8.6-50 MG TAB PER TUBE PRN (20:45)
[2019-03-16] MEDS ORDERED: levETIRAcetam 500 MG TAB PO SCH (21:00)
[2019-03-16] MEDS ORDERED: Simvastatin 20 MG TAB PO SCH (21:00)
--- NOTE | 2019-03-16 21:49 | CT ---
CT ABDOMEN AND PELVIS: 03/16/2019 HISTORY: Evaluate for small bowel obstruction. COMPARISON: None. TECHNIQUE: Axial CT imaging at 5 mm intervals, from the lung bases through the pubic symphysis, with oral contra st. Coronal reformatted imaging obtained. FINDINGS: Lack of IV contrast limits assessment of the viscera and vascular structures, and for lymphadenopathy . There is patchy increased density in both lung bases, posteromedially, which may signify infiltrate, volume loss, or scar. There is a percutaneous gastrostomy tube in place. No free intraperitoneal ai r. Limited assessment of the liver, spleen, pancreas, adrenal glands, and kidneys appears unremarkable. Cholelithiasis is noted. No evidence for bowel obstruction. There is mild diffuse colonic distention with a mild degree of stool seen throughout the colon, most prominent in the region of the right hemicolon. The appendix appears unremarkable. There is extensi ve atherosclerotic calcification within the imaged lower extremities. Review of the osseous structur es demonstrates no worrisome lytic or blastic bone lesion. IMPRESSION: 1. No evidence for small bowel obstruction. 2. Incidental findings as above. POS: DEMIAN
[2019-03-16] MEDS: Simvastatin 20 MG TAB PER TUBE SCH (22:29)
[2019-03-16] MEDS: levETIRAcetam 500 mg/5 ml Oral Solution PER TUBE SCH (22:30)
[2019-03-17] MEDS: Dextrose 5 % And 0.9 % NaCl 1,000 ML IV SCH (02:16)
[2019-03-17 06:45] LABS: #Eosinphils 0.1 thou/uL (0.0-0.7); #Lymphocytes 1.7 thou/uL (1.20-3.40); #Monocytes 0.5 thou/uL (0.11-0.59); %Basophils 0.3 % (0.0-1.0); %Eosinophils 1.4 % (0.0-10.0); %Lymphocytes 22.9 % (21.0-51.0); %Monocytes 6.8 % (0.0-10.0); %Neutrophils 68.6 % (42.0-75.0); Hemoglobin 10.9 g/dL (14.0-18.0); Mean Corpuscular HGB CONC 33.4 g/dL (32.0-36.0); Mean Corpuscular Hemoglobin 29.5 pg (27.0-31.0); Mean Corpuscular Volume 88.2 fL (78.0-98.0); Mean Platelet Volume 10.3 fL (7.4-10.4); Platelet Count 159 thou/uL (130-400); RBC Distribution Width 13.3 % (11.5-14.5); Red Blood Cell (RBC) Count 3.71 mill/uL (4.70-6.10); White Blood Cell (WBC) Count 7.2 thou/uL (4.8-10.8)
[2019-03-17 07:04] LABS: Anion Gap 13 mmol/L (10-20); BUN (Urea Nitrogen) 27 mg/dL (8.4-25.7); Calc. Creatinine Clearance 98 mL/min (70-130); Calcium 9.2 mg/dL (7.8-10.44); Carbon Dioxide 23 mmol/L (22-29); Chloride 104 mmol/L (98-107); Estimated GFR-MDRD Greater than 90; Glucose 84 mg/dL (70-105); Sodium 135 mmol/L (136-145)
[2019-03-17] MEDS ORDERED: Lisinopril 10 MG TAB PO SCH (09:00)
[2019-03-17] MEDS: Dexamethasone 1 MG TAB PO SCH ×2 (09:25→17:32)
[2019-03-17] MEDS: Enoxaparin Sodium 40 MG/0.4 ML SYRINGE SC SCH (09:25)
[2019-03-17] MEDS: Pantoprazole 40 MG GRANULES PACKET PER TUBE SCH (09:25)
[2019-03-17] MEDS: levETIRAcetam 500 mg/5 ml Oral Solution PER TUBE SCH ×2 (09:26→21:23)
[2019-03-17 12:57] VITALS: BMI 23.1
--- NOTE | 2019-03-17 16:34 | PDOC.HOSPP ---
- Subjective Subjective: pt up in bed no complains - Objective Vital Signs & Weight: Vital Signs (12 hours) Temp Pulse Pulse Resp BP BP BP 03/17/19 15:35 98.3 F 87 18 03/17/19 11:55 100.1 F H 97 18 03/17/19 11:16 101 H 103/57 L 100/64 03/17/19 08:23 98.9 F 101 H 16 103/57 L BP Pulse Ox Pulse Ox 03/17/19 15:35 112/67 96 03/17/19 11:55 100/64 95 03/17/19 11:16 97 03/17/19 08:23 98 Weight Admit Weight 142 lb 8 oz Weight 139 lb I&O: 03/16/19 03/17/19 03/18/19 06:59 06:59 06:59 Intake Total 2099 300 Output Total 300 Balance 1799 300 Result Diagrams: 03/17/19 06:25 03/17/19 06:24 Additional Labs: Accuchecks 03/17/19 03/17/19 03/17/19 11:59 05:35 00:04 POC Glucose 139 H 88 102 03/16/19 03/16/19 20:13 17:54 POC Glucose 55 L* 63 L ROS - Review of Systems All systems: All other ROS were reviewed and found negative. Respiratory: denies: cough, dry, shortness of breath, hemoptysis, SOB with excertion, pleuritic pain, sputum, wheezing, other Cardiovascular: denies: chest pain, palpitations, orthopnea, paroxysmal noc. dyspnea, edema, light headedness, other - Medication Medications: Active Medications Generic Name Dose Route Start Last Admin Trade Name Freq PRN Reason Stop Dose Admin Dexamethasone 1 mg 03/17/19 08:00 03/17/19 09:25 Decadron PO 1 mg BID-WM GRECIA Administration Enoxaparin Sodium 40 mg 03/17/19 09:00 03/17/19 09:25 Lovenox SC 40 mg 0900 GRECIA Administration Levetiracetam 500 mg 03/16/19 21:00 03/17/19 09:26 Keppra Oral Solution PER TUBE 500 mg BID GRECIA Administration Pantoprazole Sodium 40 mg 03/17/19 09:00 03/17/19 09:25 Protonix PER TUBE 40 mg DAILY GRECIA Administration Simvastatin 10 mg 03/16/19 21:00 03/16/19 22:29 Zocor PER TUBE 10 mg HS GRECIA Administration - Exam Heart: negative: RRR, no murmur, no gallops, no rubs, normal peripheral pulses, irregular, diminshed peripheral pulses, murmur present, II/IV, III/IV Respiratory: negative: CTAB, no wheezes, no rales, no ronchi, normal chest expansion, no tachypnea, normal percussion, rales, rhonchi, tachypneic, wheezes Gastrointestinal: negative: soft, non-tender, non-distended, normal bowel sounds , no palpable masses, no hepatomegaly, no splenomegaly, no bruit, tender to palpation, distended, diminished bowl sounds, voluntary guarding Hosp A/P (1) Hypoglycemia Code(s): E16.2 - HYPOGLYCEMIA, UNSPECIFIED Status: Acute (2) Acute CVA (cerebrovascular accident) Code(s): I63.9 - CEREBRAL INFARCTION, UNSPECIFIED Status: Acute (3) DM2 (diabetes mellitus, type 2) Status: Chronic (4) Seizure Status: Chronic - Plan will check hbgalc. His oral antihyperglycemics stopped. will stop his d5ns and continue to check his blood sugars. He is on bolus peg tube feedings. if blood sugars stable will discharge in am
[2019-03-17] MEDS: Simvastatin 20 MG TAB PER TUBE SCH (21:24)
[2019-03-18 05:28] LABS: Hemoglobin A1c 6.6 % (4.0-6.0)
[2019-03-18 09:00] LABS: #Basophils 0.1 thou/uL (0.0-0.2); #Eosinphils 0.1 thou/uL (0.0-0.7); #Monocytes 0.4 thou/uL (0.11-0.59); #Neutrophils 3.5 thou/uL (1.40-6.50); %Eosinophils 0.9 % (0.0-10.0); %Lymphocytes 33.3 % (21.0-51.0); %Monocytes 6.7 % (0.0-10.0); %Neutrophils 58.1 % (42.0-75.0); Hemoglobin 9.9 g/dL (14.0-18.0); Mean Corpuscular HGB CONC 33.5 g/dL (32.0-36.0); Mean Corpuscular Hemoglobin 29.3 pg (27.0-31.0); Mean Corpuscular Volume 87.5 fL (78.0-98.0); Mean Platelet Volume 10.1 fL (7.4-10.4); Platelet Count 150 thou/uL (130-400); RBC Distribution Width 13.1 % (11.5-14.5); Red Blood Cell (RBC) Count 3.37 mill/uL (4.70-6.10)
[2019-03-18] MEDS: Enoxaparin Sodium 40 MG/0.4 ML SYRINGE SC SCH (09:04)
[2019-03-18] MEDS: Dexamethasone 1 MG TAB PO SCH (09:04)
[2019-03-18] MEDS: Pantoprazole 40 MG GRANULES PACKET PER TUBE SCH (09:05)
[2019-03-18] MEDS: levETIRAcetam 500 mg/5 ml Oral Solution PER TUBE SCH (09:05)
[2019-03-18 09:25] LABS: Anion Gap 12 mmol/L (10-20); BUN (Urea Nitrogen) 17 mg/dL (8.4-25.7); Calc. Creatinine Clearance 103 mL/min (70-130); Calcium 9.5 mg/dL (7.8-10.44); Carbon Dioxide 24 mmol/L (22-29); Chloride 104 mmol/L (98-107); Estimated GFR-MDRD Greater than 90; Glucose 148 mg/dL (70-105); Potassium 4.6 mmol/L (3.5-5.1); Sodium 135 mmol/L (136-145)
[2019-03-18 15:20] VITALS: BP 108/72; TEMP 98.6
--- NOTE | 2019-03-19 14:30 | DIS ---
DATE OF ADMISSION: 03/16/2019 DATE OF DISCHARGE: 03/18/2019 DISCHARGE DIAGNOSES: As of the following; 1. Hypoglycemia. 2. History of cerebrovascular accident. 3. Diabetes. 4. Seizure. HOSPITAL COURSE: The patient is a 58-year-old male, who is a long-term resident, who presented to the hospital with hypoglycemia. He did have a CT of abdomen and pelvis in the ER, which did not indicate any acute bowel obstruction. However, he had mild diffuse colonic distention and mild degree of stool that was seen throughout the colon. The patient did have bowel movements. He initially was on bolus feeds. However, this was changed to continuous feedings, which he tolerated much better. He was initially on D5 NS drip for his hypoglycemia, which then resolved, and the drip was discontinued. His hemoglobin A1c was 6.6. HOME MEDICATIONS: Will be as of the following; 1. Metformin 1000 mg b.i.d. 2. Keppra 500 mg b.i.d. 3. Zestril 10 mg daily. 4. Simvastatin 10 mg at bedtime. 5. Dexamethasone 4 mg daily. 6. Benadryl 25 mg q.6 hours p.r.n. 7. Tizanidine 4 mg q.8 hours p.r.n. 8. I also recommended to taper the Decadron since this was started previously and I do not believe this has been tapered. I recommended the long-term physician to taper this in the next few weeks. Also, the patient's bolus feeds that he was getting in the long-term was changed per dietitian's recommendation to continuous feeds since the patient has not been tolerating the bolus feeds and he was found to be very gurgly, this is per nursing assessment. He was also on, I believe, pioglitazone, which was discontinued and he was also on glipizide 5 mg twice a day, which was discontinued, and he was on Lantus 10 units subcu twice a day. I up to the long-term physician to start any other medications for his sugars if his sugars go high; however, the hemoglobin A1c of 6.6, I think it is pretty reasonably controlled when the patient is having more hypoglycemic episodes with so many medications on board. PHYSICAL EXAMINATION: VITAL SIGNS: As of the following; temperature 98.6, pulse 73, blood pressure 108/72, respirations 18, 97% on room air. GENERAL: He is awake, alert, and oriented x3. Does not appear in distress. CV: S1 and S2 present. No murmurs, rubs, or gallops. ABDOMEN: Soft and nontender. Bowel sounds are present. EXTREMITIES: No edema. Job ID: [id number]
--- NOTE | 2019-03-24 13:30 | EKG ---
Test Reason : Blood Pressure : / mmHG Vent. Rate : 082 BPM Atrial Rate : 082 BPM P-R Int : 174 ms QRS Dur : 094 ms QT Int : 382 ms P-R-T Axes : 070 049 055 degrees QTc Int : 446 ms Normal sinus rhythm Normal ECG Confirmed by OMAYRA ROWLAND DO ([id number]), newspaper editor managing LANCE BARRERA ([id number] on 03/24/2019 1:29:41 PM Referred By: Confirmed By:OMAYRA ROWLAND DO
== END 2019-03-18 17:45 ==
LOC: ERS 12:59 → 2NO 15:48
PROVIDERS: ADMIT Internal Medicine; ATTEND Internal Medicine
DX: E11.649 Type 2 diabetes mellitus with hypoglycemia without coma (principal); I10 Essential (primary) hypertension; E78.00 Pure hypercholesterolemia, unspecified; R56.9 Unspecified convulsions; Z79.84 Long term (current) use of oral hypoglycemic drugs; Z79.899 Other long term (current) drug therapy; Z86.73 Personal history of transient ischemic attack (TIA), and cerebral infarction without residual deficits; Z87.891 Personal history of nicotine dependence
CPT/HCPCS: 51701; 71045; 74176; 80048 ×2; 80053; 81003; 82962 ×3; 83036; 83605; 83690; 84484 ×2; 85025 ×3; 87040; 87086; 93005; 94760; 96361 ×3; 96365; 96375; 97139; 99285; G0378 ×4; 36415; 36416; J1650; J2405; J2765; J8540; Q9967

== ENCOUNTER 2019-09-10 06:23 | Emergency (ER) | payer MEDICAID, MEDICARE | END 2019-09-10 08:05 | disposition home or self-care (01) | LOC: ERS 06:23 | DX: S01.112A Laceration without foreign body of left eyelid and periocular area, initial encounter (principal); S01.21XA Laceration without foreign body of nose, initial encounter; M62.421 Contracture of muscle, right upper arm; E11.9 Type 2 diabetes mellitus without complications; I10 Essential (primary) hypertension; E78.5 Hyperlipidemia, unspecified; E78.00 Pure hypercholesterolemia, unspecified; Z87.891 Personal history of nicotine dependence; Z86.73 Personal history of transient ischemic attack (TIA), and cerebral infarction without residual deficits; Z79.84 Long term (current) use of oral hypoglycemic drugs; Z79.899 Other long term (current) drug therapy; Z79.82 Long term (current) use of aspirin; W18.30XA Fall on same level, unspecified, initial encounter | CPT/HCPCS: 12011 ==

== ENCOUNTER 2020-08-06 05:16 | Emergency (ER) | payer MEDICARE ==
--- NOTE | 2020-08-06 08:55 | RAD ---
KUB AND UPRIGHT AND PA CHEST: HISTORY: Abdominal pain, constipation. FINDINGS: Some gaseous distention of the abdomen. There is some moderate stool present within the transverse a nd descending colon and prominent stool in the rectosigmoid region. No free air. No definite renal calculi. There are arthritic changes of the spine and hips. PA CHEST: Heart size is within normal limits. The lungs are clear of infiltrates. There is slight elevation o f the right hemidiaphragm. IMPRESSION: A moderate amount of stool within the colon. No obstruction or free air. POS: ELIZABETH
== END 2020-08-06 07:00 | disposition home or self-care (01) ==
LOC: ERS 05:16
DX: K59.00 Constipation, unspecified (principal); E78.5 Hyperlipidemia, unspecified; E78.00 Pure hypercholesterolemia, unspecified; Z86.73 Personal history of transient ischemic attack (TIA), and cerebral infarction without residual deficits; E11.9 Type 2 diabetes mellitus without complications; I10 Essential (primary) hypertension; Z87.891 Personal history of nicotine dependence
CPT/HCPCS: 74022

== ENCOUNTER 2020-08-27 15:36 | Emergency (ER) | payer MEDICARE ==
[~2020-08-27 15:36] MED LIST changes: -ISOVUE-370 76%-LOCM 1 ML ONE; +Iopamidol-370 76% 500 ML 1 ML ONE
[2020-08-27 16:44] LABS: #Basophils 0.1 thou/uL (0.0-0.2); #Eosinphils 0.1 thou/uL (0.0-0.7); #Lymphocytes 1.5 thou/uL (1.20-3.40); #Monocytes 0.4 thou/uL (0.11-0.59); #Neutrophils 6.3 thou/uL (1.40-6.50); %Basophils 0.7 % (0.0-1.0); %Eosinophils 0.8 % (0.0-10.0); %Monocytes 4.7 % (0.0-10.0); %Neutrophils 75.9 % (42.0-75.0); Hemoglobin 11.9 g/dL (14.0-18.0); Mean Corpuscular HGB CONC 34.5 g/dL (32.0-36.0); Mean Corpuscular Hemoglobin 30.3 pg (27.0-31.0); Mean Corpuscular Volume 87.7 fL (78.0-98.0); Mean Platelet Volume 8.1 fL (7.4-10.4); Platelet Count 213 thou/uL (130-400); RBC Distribution Width 12.4 % (11.5-14.5); Red Blood Cell (RBC) Count 3.93 mill/uL (4.70-6.10); White Blood Cell (WBC) Count 8.3 thou/uL (4.8-10.8)
--- NOTE | 2020-08-27 17:02 | RAD ---
PORTABLE CHEST: 08/27/20 HISTORY: Tachycardia. COMPARISON: 03/16/19 study. Heart size and mediastinum are within normal limits. The lungs are clear of any infiltrative process. IMPRESSION: No active intrathoracic disease. POS: ELIZABETH
[2020-08-27 17:17] LABS: ALT (SGPT) Less than 7 U/L (8-55); AST (SGOT) 7 U/L (5-34); Alkaline Phosphatase 66 U/L (40-110); Anion Gap 13 mmol/L (10-20); BUN (Urea Nitrogen) 10 mg/dL (8.4-25.7); Bilirubin, Total 0.6 mg/dL (0.2-1.2); Calc. Creatinine Clearance 0 mL/min (70-130); Calcium 8.8 mg/dL (7.8-10.44); Carbon Dioxide 23 mmol/L (22-29); Chloride 103 mmol/L (98-107); Globulin 3.5 g/dL (2.4-3.5); Glucose 156 mg/dL (70-105); Lipase 24 U/L (8-78); Protein, Total 7.5 g/dL (6.0-8.3); Sodium 135 mmol/L (136-145)
[2020-08-27 17:22] LABS: Bacteria/HPF 3+ HPF (None Seen); Bilirubin Negative (Negative); Blood, Urine Negative (Negative); Clarity Clear (Clear); Glucose, Urine (Dipstick) Normal (Negative); Ketone, Urine Negative (Negative); Leukocyte 75 Leu/uL (Negative); Nitrite Negative (Negative); Protein, Urine (Dipstick) Negative (Neg-Trace); RBC/HPF 0-3 HPF (0-3); Specific Gravity, Urine 1.006 (1.002-1.036); Squamous Epithelial 0-3 HPF (0-3); Urobilinogen Normal mg/dL (Less than 2); WBC/HPF 0-3 HPF (0-3)
[2020-08-27] MEDS ORDERED: cefTRIAXone\\ROCEPHIN 1 GM VIAL ONE (17:44)
--- NOTE | 2020-08-27 18:08 | CT ---
CT ABDOMEN AND PELVIS PERFORMED WITH CONTRAST ENHANCEMENT: 08/27/20 HISTORY: Abdominal pain, constipation. COMPARISON: A 03/16/19 study. The lung bases show some bibasilar parenchymal lung changes that are similar to the previous exam and are probably all related to scarring given the chronicity. The liver and spleen show no focal abnormalities. The pancreas region is unremarkable. The gallbladde r is contracted with small stones present. Some minimal intrahepatic ductal prominence present. Extra hepatic duct does not appear dilated. Right and left adrenal glands and right and left kidneys are normal in size. There is no significant periaortic or mesenteric adenopathy. CT OF PELVIS PERFORMED WITH CONTRAST: Large amount of stool is seen within the descending and sigmoid colon and rectosigmoid region. Some p resacral fat stranding would suggest possibility of a stercoral colitis. No pelvic lymphadenopathy or mass. IMPRESSION: 1. Contracted gallbladder with gallstones. 2. Large amount of stool mainly in the descending and sigmoid colon. Suggestion of some wall thi ckening to the rectum region. Some minimal fat stranding in the presacral fat. Changes would suggest the possibility of a stercoral colitis. POS: ELIZABETH
--- NOTE | 2020-09-03 10:18 | EKG ---
Test Reason : Blood Pressure : / mmHG Vent. Rate : 105 BPM Atrial Rate : 105 BPM P-R Int : 168 ms QRS Dur : 076 ms QT Int : 338 ms P-R-T Axes : 068 051 038 degrees QTc Int : 446 ms Sinus tachycardia Septal infarct , age undetermined Abnormal ECG Confirmed by EVER DIAZ ([id number]), primer expeditor and drier ALBA BEE ([id number]) on 09/03/2020 10:18:23 AM Referred By: Confirmed By:EVER Quevedo
== END 2020-08-27 19:46 | disposition home or self-care (01) ==
LOC: ERS 15:36
DX: N30.90 Cystitis, unspecified without hematuria (principal); K59.00 Constipation, unspecified; K52.9 Noninfective gastroenteritis and colitis, unspecified; I10 Essential (primary) hypertension; E78.5 Hyperlipidemia, unspecified; E78.00 Pure hypercholesterolemia, unspecified; E11.9 Type 2 diabetes mellitus without complications; Z86.73 Personal history of transient ischemic attack (TIA), and cerebral infarction without residual deficits; Z87.891 Personal history of nicotine dependence
CPT/HCPCS: 36415; 51701; 71045; 74177; 80053; 81003; 81015; 83605; 83690; 85025; 87077; 87086; 87186; 93005; 96365; 96366; J0696; Q9967

== ENCOUNTER 2020-09-24 15:37 | Emergency (ER) | payer MEDICARE ==
--- NOTE | 2020-09-24 16:23 | RAD ---
RADIOGRAPH CHEST 1 VIEW: DATE: 09/24/2020 HISTORY: 59-year-old male with altered mental status. Concern for aspiration. FINDINGS: Patient's right hand and wrist completely obscures right lateral mid and lower lung zones. There are no airspace densities, pulmonary edema, pneumothorax, or cardiomegaly. The lateral costophrenic angles are sharp. IMPRESSION: No acute cardiopulmonary findings.
[2020-09-24 16:24] LABS: #Eosinphils 0.1 thou/uL (0.0-0.7); #Lymphocytes 2.3 thou/uL (1.20-3.40); #Monocytes 0.6 thou/uL (0.11-0.59); #Neutrophils 3.9 thou/uL (1.40-6.50); %Basophils 0.3 % (0.0-1.0); %Eosinophils 1.3 % (0.0-10.0); %Lymphocytes 32.9 % (21.0-51.0); %Monocytes 8.3 % (0.0-10.0); %Neutrophils 57.3 % (42.0-75.0); Hemoglobin 11.3 g/dL (14.0-18.0); Mean Corpuscular HGB CONC 32.7 g/dL (32.0-36.0); Mean Corpuscular Hemoglobin 28.9 pg (27.0-31.0); Mean Corpuscular Volume 88.5 fL (78.0-98.0); Mean Platelet Volume 8.7 fL (7.4-10.4); Platelet Count 150 thou/uL (130-400); RBC Distribution Width 12.2 % (11.5-14.5); Red Blood Cell (RBC) Count 3.89 mill/uL (4.70-6.10); White Blood Cell (WBC) Count 6.9 thou/uL (4.8-10.8)
[2020-09-24 16:34] LABS: Bacteria/HPF None Seen HPF (None Seen); Bilirubin Negative (Negative); Blood, Urine 1+ (Negative); Clarity Clear (Clear); Glucose, Urine (Dipstick) Normal (Negative); Ketone, Urine Negative (Negative); Leukocyte Negative Leu/uL (Negative); Nitrite Negative (Negative); Protein, Urine (Dipstick) Negative (Neg-Trace); RBC/HPF 0-3 HPF (0-3); Specific Gravity, Urine 1.007 (1.002-1.036); Squamous Epithelial 0-3 HPF (0-3); Urobilinogen Normal mg/dL (Less than 2); WBC/HPF None Seen HPF (0-3)
--- NOTE | 2020-09-24 16:34 | CT ---
CT BRAIN NONCONTRAST: DATE: 09/24/2020 HISTORY: 59-year-old male with altered mental status, aphasia COMPARISON: 02/13/2019 FINDINGS: Diffuse involutional changes of the brain, and advanced chronic ischemic white matter changes of the brain, both greater than expected for this age group. No obstructive hydrocephalus, acute intra-axial or extra-axial hemorrhage, mass effect, midline shift , or extra-axial fluid collection. 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 Numerous small and tiny old lacunar infarctions in bilateral basal ganglia, thalami, and brainstem. No interval change overall. IMPRESSION: 1) no acute intracranial findings. 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 3) numerous tiny old lacunar infarctions in deep mckoy nuclei and brainstem 4) involutional changes and chronic ischemic white matter changes, greater than expected for this age .
[2020-09-24 16:46] LABS: ALT (SGPT) Less than 7 U/L (8-55); AST (SGOT) 8 U/L (5-34); Albumin 3.7 g/dL (3.5-5.0); Alkaline Phosphatase 54 U/L (40-110); Anion Gap 12 mmol/L (10-20); BUN (Urea Nitrogen) 15 mg/dL (8.4-25.7); Bilirubin, Total 0.7 mg/dL (0.2-1.2); CK (CPK) 228 U/L (30-200); Calc. Creatinine Clearance 0 mL/min (70-130); Calcium 8.8 mg/dL (7.8-10.44); Carbon Dioxide 21 mmol/L (22-29); Chloride 108 mmol/L (98-107); Globulin 3.2 g/dL (2.4-3.5); Glucose 83 mg/dL (70-105); Lipase 10 U/L (8-78); Magnesium 1.3 mg/dL (1.6-2.6); Potassium 4.7 mmol/L (3.5-5.1); Protein, Total 6.9 g/dL (6.0-8.3); Sodium 136 mmol/L (136-145)
== END 2020-09-24 18:16 | disposition home or self-care (01) ==
LOC: ERS 15:37
DX: E11.649 Type 2 diabetes mellitus with hypoglycemia without coma (principal); E78.5 Hyperlipidemia, unspecified; Z86.73 Personal history of transient ischemic attack (TIA), and cerebral infarction without residual deficits; I10 Essential (primary) hypertension; E11.9 Type 2 diabetes mellitus without complications; Z87.891 Personal history of nicotine dependence
CPT/HCPCS: 36415; 36416; 51701; 70450; 71045; 80053; 81003; 81015; 82550; 83690; 83735; 84484; 85025; 93005

== ENCOUNTER 2021-03-27 17:59 | Inpatient (IN) | payer MEDICARE ==
[2021-03-27 18:39] LABS: Mean Corpuscular HGB CONC 34.3 g/dL (32.0-36.0); Mean Corpuscular Hemoglobin 31.6 pg (27.0-31.0); Mean Corpuscular Volume 92.1 fL (78.0-98.0); Mean Platelet Volume 9.8 fL (7.4-10.4); Platelet Count 103 thou/uL (130-400); Red Blood Cell (RBC) Count 3.15 mill/uL (4.70-6.10); White Blood Cell (WBC) Count 7.6 thou/uL (4.8-10.8)
[2021-03-27 19:01] LABS: Band 10 % (5-11); Lymphocytes 20 % (21-51); MDiff Complete? YES; Monocytes 3 % (0-10); Neutrophil 67 % (42-75); Platelet Morphology Comment Appears Decreased; RBC Morphology Normal
[2021-03-27 19:05] LABS: ALT (SGPT) 8 U/L (8-55); AST (SGOT) 24 U/L (5-34); Albumin 3.2 g/dL (3.5-5.0); Alkaline Phosphatase 49 U/L (40-110); Anion Gap 17 mmol/L (10-20); BUN (Urea Nitrogen) 44 mg/dL (8.4-25.7); Bilirubin, Total 0.8 mg/dL (0.2-1.2); Calc. Creatinine Clearance 0 mL/min (70-130); Carbon Dioxide 17 mmol/L (22-29); Chloride 111 mmol/L (98-107); Globulin 2.7 g/dL (2.4-3.5); Glucose 242 mg/dL (70-105); Potassium 3.8 mmol/L (3.5-5.1); Protein, Total 5.9 g/dL (6.0-8.3); Sodium 141 mmol/L (136-145)
[2021-03-27 19:21] LABS: CKMB 0.4 ng/mL (0-6.6)
[2021-03-27] MEDS ORDERED: Cefepime 2 GM VIAL ONE (20:00)
[2021-03-27] MEDS ORDERED: Vancomycin 1 GM/200 ML BAG ONE (20:19)
[2021-03-27] MEDS ORDERED: Norepinephrine 8 MG/0.9% NS 250 ML ONE (20:36)
[2021-03-27] MEDS ORDERED: Vancomycin 1.5 GRAM/300 ML BAG 1.5 GM in Premix Bag 1 BAG IVPB SCH (21:00)
[2021-03-27 23:58] LABS: Troponin I 0.049 ng/mL (< 0.028)
[2021-03-28] MEDS ORDERED: Ondansetron PF 4 MG/2 ML Vial IVP PRN (01:05)
[2021-03-28] MEDS ORDERED: Acetaminophen 325 MG TAB PO PRN (01:05)
[2021-03-28] MEDS ORDERED: Dextrose 5% in Water 1,000 ML IV PRN (01:22)
[2021-03-28] MEDS ORDERED: HumaLOG 300 UNITS/3 ML VIAL SC PRN (01:22)
[2021-03-28] MEDS ORDERED: Dextrose 50% Abboject 50 ML SYRINGE SLOW IVP PRN (01:22)
[2021-03-28] MEDS ORDERED: MEROPENEM 1 GM/50 ML 1 GM in Premix Bag 1 BAG IVPB SCH (02:00)
[2021-03-28] MEDS ORDERED: Dexamethasone 10 MG/ML VIAL ONE (02:29)
[2021-03-28] MEDS ORDERED: Calcium Gluc 4.6 MEQ/10 ML (100 MG/ML) ONE (02:29)
[2021-03-28 02:35] LABS: Actual Bicarbonate (HCO3a) 17.1 mEq/L (22-28); Analyzer IN Cardio ER; Base Excess (BEa) -8.2 mEq/L (-2.0 to +3.0); CO2 Tension 34.5 mmHg (35.0-45.0); Calcium, Ionized (arterial) 1.02 mmol/L (1.12-1.30); Carboxyhemoglobin (COHb) 0.3 gm% (0.0-3.0); Hemoglobin (Hb) 10.4 g/dL (14.0-18.0); Potassium - ABG Lab 3.96 mmol/L (3.70-5.30); pH, Arterial 7.31 (7.35-7.45)
[2021-03-28 02:47] LABS: ALV-art Gradient 192.725 mmHg (0-20); Puncture Site LRA
[2021-03-28 02:51] LABS: Troponin I 0.046 ng/mL (< 0.028)
[2021-03-28 03:00] LABS: Band 11 % (5-11); Hemoglobin 10.6 g/dL (14.0-18.0); Hypochromia SLIGHT = 6-15 cells (100X) (0-5/hpf); Lymphocytes 15 % (21-51); MDiff Complete? YES; Mean Corpuscular HGB CONC 33.7 g/dL (32.0-36.0); Mean Corpuscular Hemoglobin 31.1 pg (27.0-31.0); Mean Corpuscular Volume 92.3 fL (78.0-98.0); Mean Platelet Volume 10.1 fL (7.4-10.4); Metamyelocyte 1 % (0-0); Monocytes 2 % (0-10); Neutrophil 71 % (42-75); Platelet Count 106 thou/uL (130-400); Platelet Morphology Comment Appears Adequate; RBC Distribution Width 13.3 % (11.5-14.5); Red Blood Cell (RBC) Count 3.41 mill/uL (4.70-6.10); White Blood Cell (WBC) Count 5.3 thou/uL (4.8-10.8)
[2021-03-28 03:33] LABS: ALT (SGPT) 9 U/L (8-55); AST (SGOT) 29 U/L (5-34); Albumin 3.1 g/dL (3.5-5.0); Alkaline Phosphatase 50 U/L (40-110); Anion Gap 18 mmol/L (10-20); BUN (Urea Nitrogen) 44 mg/dL (8.4-25.7); Bilirubin, Total 0.5 mg/dL (0.2-1.2); Calc. Creatinine Clearance 0 mL/min (70-130); Calcium 7.7 mg/dL (7.8-10.44); Carbon Dioxide 14 mmol/L (22-29); Chloride 111 mmol/L (98-107); Globulin 3.5 g/dL (2.4-3.5); Glucose 286 mg/dL (70-105); Potassium 4.3 mmol/L (3.5-5.1); Protein, Total 6.6 g/dL (6.0-8.3); Sodium 139 mmol/L (136-145)
[2021-03-28 04:02] LABS: SARS-CoV-2 NAA Rapid Test DETECTED (NotDetected)
[2021-03-28] MEDS ORDERED: Enoxaparin Sodium 60 MG/0.6 ML SYRINGE SC SCH (05:00)
[2021-03-28 05:19] LABS: Bacteria/HPF 1+ HPF (None Seen); Bilirubin Negative (Negative); Blood, Urine 1+ (Negative); Clarity Turbid (Clear); Glucose, Urine (Dipstick) 70 mg/dL (Negative); Ketone, Urine Negative (Negative); Leukocyte Negative Leu/uL (Negative); Nitrite Negative (Negative); Protein, Urine (Dipstick) 50 mg/dL (Neg-Trace); RBC/HPF 0-3 HPF (0-3); Specific Gravity, Urine 1.016 (1.002-1.036); Squamous Epithelial 0-3 HPF (0-3); Urobilinogen Normal mg/dL (Less than 2); WBC/HPF 0-3 HPF (0-3)
[2021-03-28] MEDS: Sodium Bicarbonate 150 MEQ in Dextrose 5% in Water 1,000 ML IV SCH ×3 (05:38→20:14)
[2021-03-28] MEDS ORDERED: Norepinephrine 8 MG/0.9% NS 250 ML IVPB SCH (06:30)
[2021-03-28] MEDS: Ascorbic Acid 500 mg Chewable Tablet PO SCH ×3 (09:59→15:00)
[2021-03-28] MEDS: MEROPENEM 1 GM/50 ML 1 GM in Premix Bag 1 BAG IVPB SCH ×2 (10:59→15:00)
[2021-03-28] MEDS ORDERED: REMDESIVIR 200 MG in Sodium Chloride 0.9% 250 ML 210 ML IV SCH (11:00)
[2021-03-28] MEDS: Dexamethasone 4 mg/ml Vial SLOW IVP SCH (11:02)
[2021-03-28] MEDS ORDERED: Iopamidol-370 76% 500 ML 1 ML ONE (11:12)
[2021-03-28] MEDS: HumaLOG 300 UNITS/3 ML VIAL SC PRN (13:00)
[2021-03-28] MEDS: Famotidine 20 MG TAB PO SCH (14:35)
[2021-03-28] MEDS: Cholecalciferol 1,000 UNITS (25 MCG) TAB PO SCH (15:00)
[2021-03-28] MEDS: Zinc Sulfate 220 MG CAP PO SCH (15:00)
[2021-03-28] MEDS: levETIRAcetam 500 MG TAB PO SCH ×2 (15:00→20:40)
[2021-03-28] MEDS: Sodium Chloride 0.45% 1,000 ML IV SCH (20:34)
[2021-03-28 21:21] LABS: Vancomycin, Random 13.8 ug/mL (See Comment)
[2021-03-28] MEDS ORDERED: Vancomycin 1 GM in Premix Bag 1 BAG IVPB SCH (22:00)
[2021-03-29 05:25] LABS: ALT (SGPT) 9 U/L (8-55); AST (SGOT) 44 U/L (5-34); Albumin 2.9 g/dL (3.5-5.0); Alkaline Phosphatase 60 U/L (40-110); Anion Gap 14 mmol/L (10-20); BUN (Urea Nitrogen) 38 mg/dL (8.4-25.7); Bilirubin, Total 0.5 mg/dL (0.2-1.2); Calc. Creatinine Clearance 37 mL/min (70-130); Calcium 8.2 mg/dL (7.8-10.44); Carbon Dioxide 24 mmol/L (22-29); Chloride 109 mmol/L (98-107); Globulin 3.3 g/dL (2.4-3.5); Glucose 268 mg/dL (70-105); Potassium 4.4 mmol/L (3.5-5.1); Protein, Total 6.2 g/dL (6.0-8.3); Sodium 143 mmol/L (136-145)
[2021-03-29 05:56] LABS: Hemoglobin 9.9 g/dL (14.0-18.0); Hypochromia SLIGHT = 6-15 cells (100X) (0-5/hpf); Lymphocytes 17 % (21-51); MDiff Complete? YES; Mean Corpuscular HGB CONC 31.3 g/dL (32.0-36.0); Mean Corpuscular Volume 92.5 fL (78.0-98.0); Mean Platelet Volume 10.5 fL (7.4-10.4); Monocytes 1 % (0-10); Neutrophil 82 % (42-75); Platelet Count 106 thou/uL (130-400); Platelet Morphology Comment Appears Decreased; RBC Distribution Width 13.4 % (11.5-14.5); White Blood Cell (WBC) Count 5.7 thou/uL (4.8-10.8)
[2021-03-29] MEDS: HumaLOG 300 UNITS/3 ML VIAL SC PRN ×3 (06:24→16:45)
[2021-03-29] MEDS: Sodium Chloride 0.45% 1,000 ML IV SCH ×2 (06:24→11:06)
[2021-03-29] MEDS: Ascorbic Acid 500 mg Chewable Tablet PO SCH (09:42)
[2021-03-29] MEDS: Famotidine 20 MG TAB PO SCH (09:42)
[2021-03-29] MEDS: Dexamethasone 4 mg/ml Vial SLOW IVP SCH (09:42)
[2021-03-29] MEDS: Zinc Sulfate 220 MG CAP PO SCH (09:42)
[2021-03-29] MEDS: Cholecalciferol 1,000 UNITS (25 MCG) TAB PO SCH (09:42)
[2021-03-29] MEDS: levETIRAcetam 500 MG TAB PO SCH ×2 (09:42→20:30)
[2021-03-29] MEDS ORDERED: REMDESIVIR 100 MG in Sodium Chloride 0.9% 250 ML 230 ML IV SCH (11:00)
[2021-03-30] MEDS: Sodium Chloride 0.45% 1,000 ML IV SCH ×3 (03:11→23:00)
[2021-03-30] MEDS: HumaLOG 300 UNITS/3 ML VIAL SC PRN ×2 (05:48→13:11)
[2021-03-30 06:22] LABS: #Lymphocytes 0.6 thou/uL (1.20-3.40); #Monocytes 0.2 thou/uL (0.11-0.59); #Neutrophils 4.3 thou/uL (1.40-6.50); %Basophils 0.7 % (0.0-1.0); %Eosinophils 0.2 % (0.0-10.0); %Monocytes 4.4 % (0.0-10.0); %Neutrophils 82.6 % (42.0-75.0); Hemoglobin 9.5 g/dL (14.0-18.0); Mean Corpuscular HGB CONC 33.7 g/dL (32.0-36.0); Mean Corpuscular Hemoglobin 31.3 pg (27.0-31.0); Mean Corpuscular Volume 92.7 fL (78.0-98.0); Mean Platelet Volume 10.8 fL (7.4-10.4); Platelet Count 92 thou/uL (130-400); RBC Distribution Width 13.3 % (11.5-14.5); Red Blood Cell (RBC) Count 3.05 mill/uL (4.70-6.10); White Blood Cell (WBC) Count 5.2 thou/uL (4.8-10.8)
[2021-03-30 06:41] LABS: ALT (SGPT) 7 U/L (8-55); AST (SGOT) 23 U/L (5-34); Albumin 2.8 g/dL (3.5-5.0); Alkaline Phosphatase 59 U/L (40-110); Anion Gap 15 mmol/L (10-20); BUN (Urea Nitrogen) 38 mg/dL (8.4-25.7); Bilirubin, Total 0.5 mg/dL (0.2-1.2); Calc. Creatinine Clearance 52 mL/min (70-130); Calcium 8.2 mg/dL (7.8-10.44); Carbon Dioxide 22 mmol/L (22-29); Chloride 111 mmol/L (98-107); Glucose 274 mg/dL (70-105); Potassium 4.7 mmol/L (3.5-5.1); Protein, Total 5.8 g/dL (6.0-8.3); Sodium 143 mmol/L (136-145)
[2021-03-30] MEDS: Zinc Sulfate 220 MG CAP PO SCH (09:10)
[2021-03-30] MEDS: Cholecalciferol 1,000 UNITS (25 MCG) TAB PO SCH (09:10)
[2021-03-30] MEDS: Dexamethasone 4 mg/ml Vial SLOW IVP SCH (09:10)
[2021-03-30] MEDS: levETIRAcetam 500 MG TAB PO SCH ×2 (09:10→20:16)
[2021-03-30] MEDS: Ascorbic Acid 500 mg Chewable Tablet PO SCH (09:10)
[2021-03-30] MEDS: Famotidine 20 MG TAB PO SCH (09:10)
[2021-03-30] MEDS ORDERED: Lantus 1000 UNITS/10 ML VIAL SC SCH (09:45)
[2021-03-31] MEDS: HumaLOG 300 UNITS/3 ML VIAL SC PRN ×2 (05:46→11:58)
[2021-03-31] MEDS: Ascorbic Acid 500 mg Chewable Tablet PO SCH (07:58)
[2021-03-31] MEDS: Lantus 1000 UNITS/10 ML VIAL SC SCH (07:59)
[2021-03-31] MEDS: levETIRAcetam 500 MG TAB PO SCH ×2 (07:59→20:08)
[2021-03-31] MEDS: Zinc Sulfate 220 MG CAP PO SCH (07:59)
[2021-03-31] MEDS: Famotidine 20 MG TAB PO SCH (07:59)
[2021-03-31] MEDS: Dexamethasone 4 mg/ml Vial SLOW IVP SCH (07:59)
[2021-03-31] MEDS: Cholecalciferol 1,000 UNITS (25 MCG) TAB PO SCH (07:59)
[2021-03-31] MEDS: Sodium Chloride 0.45% 1,000 ML IV SCH ×2 (08:05→17:45)
[2021-03-31 10:31] LABS: Anion Gap 14 mmol/L (10-20); BUN (Urea Nitrogen) 30 mg/dL (8.4-25.7); Calc. Creatinine Clearance 68 mL/min (70-130); Calcium 8.4 mg/dL (7.8-10.44); Carbon Dioxide 20 mmol/L (22-29); Chloride 112 mmol/L (98-107); Glucose 222 mg/dL (70-105); Potassium 4.5 mmol/L (3.5-5.1); Sodium 141 mmol/L (136-145)
[2021-04-01] MEDS: Sodium Chloride 0.45% 1,000 ML IV SCH (03:53)
[2021-04-01] MEDS: HumaLOG 300 UNITS/3 ML VIAL SC PRN (06:13)
[2021-04-01] MEDS ORDERED: HYDROcodone/Acetaminophen 5/325 mg Tablet PO PRN (07:25)
[2021-04-01] MEDS ORDERED: Cepastat Lozenges 1 LOZ PO PRN (07:25)
[2021-04-01] MEDS ORDERED: Loperamide HCl 2 MG CAP PO PRN (07:25)
[2021-04-01] MEDS ORDERED: Artificial Tear Sol 15 ML BOT EA EYE PRN (07:25)
[2021-04-01] MEDS ORDERED: Benzonatate 100 MG CAP PO PRN (07:25)
[2021-04-01] MEDS ORDERED: Bisacodyl 5 MG TAB PO PRN (07:25)
[2021-04-01] MEDS ORDERED: hydrALAZINE 20 MG/ML VIAL SLOW IVP PRN (07:25)
[2021-04-01] MEDS ORDERED: Hydrocerin (Eucerin) Cream 120 gm Jar TOP PRN (07:25)
[2021-04-01] MEDS ORDERED: GUAIFENESIN SF SOLN 200 MG/10 ML UDCUP PO PRN (07:25)
[2021-04-01] MEDS ORDERED: Senokot S 8.6-50 MG TAB PO PRN (07:25)
[2021-04-01] MEDS ORDERED: Calcium Carbonate 500 MG ChewTAB PO PRN (07:25)
[2021-04-01] MEDS ORDERED: Loratadine 10 MG TAB PO PRN (07:25)
[2021-04-01] MEDS ORDERED: Sodium Chloride 0.65% Nasal 44 ML BOT EA NARE PRN (07:25)
[2021-04-01] MEDS ORDERED: Ondansetron ODT 4 MG TAB PO PRN (07:25)
[2021-04-01] MEDS ORDERED: Albuterol Sulfate 2.5 mg/3 ml Neb NEB PRN (07:26)
[2021-04-01] MEDS ORDERED: Melatonin 3 MG TAB PO PRN (07:26)
[2021-04-01] MEDS ORDERED: Fluticasone Propionate Nasal Spray 16 gm Bottle NASAL PRN (07:27)
[2021-04-01] MEDS: levETIRAcetam 500 MG TAB PO SCH ×2 (08:04→19:51)
[2021-04-01] MEDS: Cholecalciferol 1,000 UNITS (25 MCG) TAB PO SCH (08:04)
[2021-04-01] MEDS: Zinc Sulfate 220 MG CAP PO SCH (08:04)
[2021-04-01] MEDS: Ascorbic Acid 500 mg Chewable Tablet PO SCH (08:04)
[2021-04-01] MEDS: Dexamethasone 4 mg/ml Vial SLOW IVP SCH (08:05)
[2021-04-01] MEDS: Lantus 1000 UNITS/10 ML VIAL SC SCH (08:05)
[2021-04-01] MEDS ORDERED: Albuterol 200 PUFF (6.7GM INHALER) INH PRN (08:16)
[2021-04-01] MEDS ORDERED: Simvastatin 10 MG TAB PO SCH (21:00)
[2021-04-01 22:14] VITALS: BP 144/87; TEMP 98.3
[2021-04-02 05:42] LABS: Mean Corpuscular HGB CONC 32.9 g/dL (32.0-36.0); Mean Corpuscular Hemoglobin 30.4 pg (27.0-31.0); Mean Corpuscular Volume 92.3 fL (78.0-98.0); Mean Platelet Volume 9.4 fL (7.4-10.4); Platelet Count 162 thou/uL (130-400); RBC Distribution Width 13.3 % (11.5-14.5); Red Blood Cell (RBC) Count 3.28 mill/uL (4.70-6.10); White Blood Cell (WBC) Count 6.5 thou/uL (4.8-10.8)
[2021-04-02 06:02] LABS: ALT (SGPT) Less than 7 U/L (8-55); AST (SGOT) 12 U/L (5-34); Albumin 2.5 g/dL (3.5-5.0); Alkaline Phosphatase 54 U/L (40-110); Anion Gap 10 mmol/L (10-20); BUN (Urea Nitrogen) 20 mg/dL (8.4-25.7); Bilirubin, Total 0.7 mg/dL (0.2-1.2); Calc. Creatinine Clearance 92 mL/min (70-130); Calcium 8.6 mg/dL (7.8-10.44); Carbon Dioxide 25 mmol/L (22-29); Chloride 114 mmol/L (98-107); Globulin 2.9 g/dL (2.4-3.5); Glucose 143 mg/dL (70-105); Magnesium 1.6 mg/dL (1.6-2.6); Phosphorus 2.4 mg/dL (2.3-4.7); Potassium 3.5 mmol/L (3.5-5.1); Protein, Total 5.4 g/dL (6.0-8.3); Sodium 145 mmol/L (136-145)
[2021-04-02 06:53] LABS: Band 3 % (5-11); Lymphocytes 14 % (21-51); MDiff Complete? YES; Monocytes 1 % (0-10); Neutrophil 81 % (42-75); Reactive Lymphocytes 1 % (0-10)
[2021-04-02] MEDS: Dexamethasone 4 mg/ml Vial SLOW IVP SCH (07:57)
[2021-04-02] MEDS: Ascorbic Acid 500 mg Chewable Tablet PO SCH (07:57)
[2021-04-02] MEDS: Cholecalciferol 1,000 UNITS (25 MCG) TAB PO SCH (07:57)
[2021-04-02] MEDS: Zinc Sulfate 220 MG CAP PO SCH (07:57)
[2021-04-02] MEDS: Lantus 1000 UNITS/10 ML VIAL SC SCH (07:57)
[2021-04-02] MEDS: levETIRAcetam 500 MG TAB PO SCH (07:57)
== END 2021-04-02 15:15 | disposition home health service (06) | DRG 871 ==
LOC: ERS 17:59 → ERHOLD 22:48 → CCU 03-28 04:07 → T4-A 03-29 11:07
PROVIDERS: ADMIT Internal Medicine; ATTEND Internal Medicine
PROC: 8E0ZXY6 Isolation (ICD-10-PCS; principal; 2021-03-27)
PROC: 3E033XZ Introduction of Vasopressor into Peripheral Vein, Percutaneous Approach (ICD-10-PCS; 2021-03-27)
PROC: 02HV33Z Insertion of Infusion Device into Superior Vena Cava, Percutaneous Approach (ICD-10-PCS; 2021-03-27)
PROC: B548ZZA Ultrasonography of Superior Vena Cava, Guidance (ICD-10-PCS; 2021-03-27)
PROC: XW033E5 Introduction of Remdesivir Anti-infective into Peripheral Vein, Percutaneous Approach, New Technology Group 5 (ICD-10-PCS; 2021-03-28)
DX: A41.89 Other specified sepsis (principal); U07.1 COVID-19; R65.21 Severe sepsis with septic shock; J96.01 Acute respiratory failure with hypoxia; J12.82 Pneumonia due to coronavirus disease 2019; G93.41 Metabolic encephalopathy; I21.A1 Myocardial infarction type 2; I69.951 Hemiplegia and hemiparesis following unspecified cerebrovascular disease affecting right dominant side; N17.9 Acute kidney failure, unspecified; E87.2 Acidosis; I10 Essential (primary) hypertension; G40.909 Epilepsy, unspecified, not intractable, without status epilepticus; E78.5 Hyperlipidemia, unspecified; R19.7 Diarrhea, unspecified; E11.65 Type 2 diabetes mellitus with hyperglycemia; E78.00 Pure hypercholesterolemia, unspecified; Z79.84 Long term (current) use of oral hypoglycemic drugs; Z79.899 Other long term (current) drug therapy; Z89.512 Acquired absence of left leg below knee; Z83.3 Family history of diabetes mellitus; Z74.01 Bed confinement status; Z98.1 Arthrodesis status; D69.59 Other secondary thrombocytopenia
CPT/HCPCS: 0240U; 36415; 36416; 36556; 36600; 71045; 71275; 80048; 80053; 80202; 81003; 81015; 82533; 82553; 82728; 82805; 83605; 83735; 83880; 84100; 84484; 85025; 86140; 87040; 87077; 87086; 87149; 93005; 96365; 96366; 96367; 96368; 96375; J0692; J1100; J1650; J1815; J2001; J2185; J3370; J7070; Q9967

== ENCOUNTER 2021-04-03 17:17 | Inpatient (IN) | payer MEDICARE ==
[2021-04-03] MEDS ORDERED: Dexamethasone 10 MG/ML VIAL ONE (17:50)
[2021-04-03 18:15] LABS: Bilirubin Negative (Negative); Blood, Urine Negative (Negative); Clarity Clear (Clear); Glucose, Urine (Dipstick) Normal (Negative); Ketone, Urine Negative (Negative); Leukocyte Negative Leu/uL (Negative); Nitrite Negative (Negative); Protein, Urine (Dipstick) Negative (Neg-Trace); Specific Gravity, Urine 1.011 (1.002-1.036); Urobilinogen Normal mg/dL (Less than 2)
[2021-04-03 18:23] LABS: Hemoglobin 10.3 g/dL (14.0-18.0); Mean Corpuscular HGB CONC 33.1 g/dL (32.0-36.0); Mean Corpuscular Hemoglobin 30.4 pg (27.0-31.0); Mean Corpuscular Volume 91.6 fL (78.0-98.0); Mean Platelet Volume 8.8 fL (7.4-10.4); Platelet Count 201 thou/uL (130-400); RBC Distribution Width 13.4 % (11.5-14.5); White Blood Cell (WBC) Count 9.1 thou/uL (4.8-10.8)
[2021-04-03 18:43] LABS: ALT (SGPT) Less than 7 U/L (8-55); AST (SGOT) 15 U/L (5-34); Albumin 2.6 g/dL (3.5-5.0); Alkaline Phosphatase 56 U/L (40-110); Anion Gap 10 mmol/L (10-20); BUN (Urea Nitrogen) 16 mg/dL (8.4-25.7); Bilirubin, Total 0.8 mg/dL (0.2-1.2); CK (CPK) 82 U/L (30-200); Calc. Creatinine Clearance 0 mL/min (70-130); Calcium 8.2 mg/dL (7.8-10.44); Carbon Dioxide 25 mmol/L (22-29); Chloride 114 mmol/L (98-107); Globulin 3.1 g/dL (2.4-3.5); Glucose 141 mg/dL (70-105); Lipase 34 U/L (8-78); Magnesium 1.2 mg/dL (1.6-2.6); Potassium 3.3 mmol/L (3.5-5.1); Protein, Total 5.7 g/dL (6.0-8.3); Sodium 146 mmol/L (136-145)
[2021-04-03 18:44] LABS: Band 17 % (5-11); Lymphocytes 8 % (21-51); MDiff Complete? YES; Monocytes 2 % (0-10); Neutrophil 73 % (42-75); Platelet Morphology Comment Appears Adequate; Polychromasia SLIGHT = 2-3 cells (100X) (0-2/hpf); Target Cells SLIGHT = 2-5 cells (100X) (0-1/hpf); Tear Drops SLIGHT = 2-5 cells (100X) (0-1/hpf)
[2021-04-03] MEDS ORDERED: cefTRIAXone\\ROCEPHIN 1 GM VIAL ONE (18:48)
[2021-04-03 19:10] LABS: CKMB 1.5 ng/mL (0-6.6)
[2021-04-03] MEDS ORDERED: Azithromycin 500 MG VIAL ONE (20:51)
[2021-04-03 23:43] LABS: Troponin I 0.616 ng/mL (< 0.028)
[2021-04-04] MEDS ORDERED: Ondansetron PF 4 MG/2 ML Vial IVP PRN (04:24)
[2021-04-04] MEDS ORDERED: Ondansetron ODT 4 MG TAB PO PRN (04:24)
[2021-04-04] MEDS ORDERED: Acetaminophen 650 MG Suppository PR PRN (04:24)
[2021-04-04] MEDS ORDERED: Electrolyte Replacement Protocol 1 EACH FS SCH (04:30)
[2021-04-04] MEDS: Potassium Chloride 20 MEQ in Premix Bag 1 BAG IVPB SCH ×2 (04:39→06:32)
[2021-04-04] MEDS: Magnesium 2 GM/50 ML 2 GM in Premix Bag 1 BAG IVPB SCH ×2 (04:40→06:32)
[2021-04-04 05:31] LABS: Critical Call Chem Troponin I RESULT DECREASING; Troponin I 0.438 ng/mL (< 0.028)
[2021-04-04] MEDS ORDERED: HumaLOG 300 UNITS/3 ML VIAL SC PRN (06:31)
[2021-04-04] MEDS ORDERED: Dextrose 5% in Water 1,000 ML IV PRN (06:31)
[2021-04-04] MEDS ORDERED: Dextrose 50% Abboject 50 ML SYRINGE SLOW IVP PRN (06:31)
[2021-04-04 08:03] LABS: #Lymphocytes 0.6 thou/uL (1.20-3.40); #Monocytes 0.2 thou/uL (0.11-0.59); %Basophils 0.2 % (0.0-1.0); %Eosinophils 0.4 % (0.0-10.0); %Lymphocytes 7.4 % (21.0-51.0); %Monocytes 2.3 % (0.0-10.0); %Neutrophils 89.7 % (42.0-75.0); Hemoglobin 9.5 g/dL (14.0-18.0); Mean Corpuscular HGB CONC 32.7 g/dL (32.0-36.0); Mean Corpuscular Hemoglobin 30.1 pg (27.0-31.0); Mean Corpuscular Volume 92.2 fL (78.0-98.0); Mean Platelet Volume 9.2 fL (7.4-10.4); Platelet Count 182 thou/uL (130-400); RBC Distribution Width 13.4 % (11.5-14.5); Red Blood Cell (RBC) Count 3.14 mill/uL (4.70-6.10); White Blood Cell (WBC) Count 7.8 thou/uL (4.8-10.8)
[2021-04-04 08:13] LABS: Anion Gap 16 mmol/L (10-20); BUN (Urea Nitrogen) 15 mg/dL (8.4-25.7); Calc. Creatinine Clearance 93 mL/min (70-130); Calcium 8.1 mg/dL (7.8-10.44); Carbon Dioxide 19 mmol/L (22-29); Chloride 116 mmol/L (98-107); Glucose 150 mg/dL (70-105); Potassium 4.1 mmol/L (3.5-5.1); Sodium 147 mmol/L (136-145)
[2021-04-04] MEDS ORDERED: Enoxaparin Sodium 40 MG/0.4 ML SYRINGE SC SCH (09:00)
[2021-04-04] MEDS: Enoxaparin Sodium 60 MG/0.6 ML SYRINGE SC SCH ×2 (10:23→22:33)
[2021-04-04] MEDS: Vancomycin 1 GM in Premix Bag 1 BAG IVPB SCH ×2 (10:23→22:33)
[2021-04-04] MEDS ORDERED: Piperacillin/Tazobactam 3.375 GM in Sodium Chloride 0.9% 100 ML IVPB SCH ×2 (11:00→12:00)
[2021-04-04] MEDS ORDERED: Dexamethasone 4 mg/ml Vial SLOW IVP SCH (16:00)
[2021-04-04] MEDS ORDERED: Furosemide 40 MG/4 ML VIAL SLOW IVP SCH (16:00)
[2021-04-04] MEDS ORDERED: Aspirin 81 mg Enteric Coated Tablet PO SCH (16:15)
[2021-04-04] MEDS: Acetaminophen 325 MG TAB PO PRN (17:28)
[2021-04-04] MEDS: Piperacillin/Tazobactam 3.375 GM in Sodium Chloride 0.9% 100 ML IVPB SCH (18:34)
[2021-04-04] MEDS: Atorvastatin Calcium 40 MG TAB PO SCH ×2 (22:33)
[2021-04-05] MEDS: Piperacillin/Tazobactam 3.375 GM in Sodium Chloride 0.9% 100 ML IVPB SCH ×3 (02:49→18:00)
[2021-04-05] MEDS: Morphine 2 MG/ML VIAL SLOW IVP PRN ×2 (04:14→22:09)
[2021-04-05 04:53] LABS: #Lymphocytes 0.4 thou/uL (1.20-3.40); #Monocytes 0.2 thou/uL (0.11-0.59); #Neutrophils 6.1 thou/uL (1.40-6.50); %Eosinophils 0.3 % (0.0-10.0); %Lymphocytes 5.8 % (21.0-51.0); %Monocytes 2.3 % (0.0-10.0); %Neutrophils 91.6 % (42.0-75.0); Hemoglobin 9.8 g/dL (14.0-18.0); Mean Corpuscular HGB CONC 32.9 g/dL (32.0-36.0); Mean Corpuscular Hemoglobin 30.6 pg (27.0-31.0); Mean Corpuscular Volume 92.9 fL (78.0-98.0); Mean Platelet Volume 9.1 fL (7.4-10.4); Platelet Count 195 thou/uL (130-400); RBC Distribution Width 13.6 % (11.5-14.5); Red Blood Cell (RBC) Count 3.22 mill/uL (4.70-6.10); White Blood Cell (WBC) Count 6.6 thou/uL (4.8-10.8)
[2021-04-05 05:12] LABS: ALT (SGPT) Less than 7 U/L (8-55); AST (SGOT) 12 U/L (5-34); Albumin 2.5 g/dL (3.5-5.0); Alkaline Phosphatase 57 U/L (40-110); Anion Gap 21 mmol/L (10-20); BUN (Urea Nitrogen) 19 mg/dL (8.4-25.7); Bilirubin, Total 0.8 mg/dL (0.2-1.2); Calc. Creatinine Clearance 72 mL/min (70-130); Calcium 8.4 mg/dL (7.8-10.44); Carbon Dioxide 15 mmol/L (22-29); Chloride 113 mmol/L (98-107); Globulin 3.4 g/dL (2.4-3.5); Glucose 300 mg/dL (70-105); Magnesium 1.7 mg/dL (1.6-2.6); Protein, Total 5.9 g/dL (6.0-8.3); Sodium 145 mmol/L (136-145)
[2021-04-05] MEDS: HumaLOG 300 UNITS/3 ML VIAL SC PRN ×3 (05:30→17:54)
[2021-04-05] MEDS ORDERED: Magnesium 2 GM/50 ML 2 GM in Premix Bag 1 BAG IVPB SCH (06:30)
[2021-04-05] MEDS: Dexamethasone 4 mg/ml Vial SLOW IVP SCH (09:14)
[2021-04-05] MEDS: Aspirin 81 mg Enteric Coated Tablet PO SCH ×2 (09:14→09:52)
[2021-04-05] MEDS: Enoxaparin Sodium 60 MG/0.6 ML SYRINGE SC SCH ×2 (09:14→21:43)
[2021-04-05] MEDS: Vancomycin 1 GM in Premix Bag 1 BAG IVPB SCH ×2 (10:50→21:43)
[2021-04-05] MEDS: Atorvastatin Calcium 40 MG TAB PO SCH ×2 (21:43)
[2021-04-06] MEDS: Piperacillin/Tazobactam 3.375 GM in Sodium Chloride 0.9% 100 ML IVPB SCH ×3 (03:55→18:09)
[2021-04-06] MEDS: HumaLOG 300 UNITS/3 ML VIAL SC PRN ×2 (05:42→18:10)
[2021-04-06] MEDS: Dexamethasone 4 mg/ml Vial SLOW IVP SCH (08:54)
[2021-04-06] MEDS: Enoxaparin Sodium 60 MG/0.6 ML SYRINGE SC SCH ×2 (08:54→20:21)
[2021-04-06] MEDS: Aspirin 81 mg Enteric Coated Tablet PO SCH (08:55)
[2021-04-06] MEDS: Vancomycin 1 GM in Premix Bag 1 BAG IVPB SCH ×3 (10:19→22:48)
[2021-04-06] MEDS: Acetaminophen 325 MG TAB PO PRN (20:21)
[2021-04-06] MEDS: Atorvastatin Calcium 40 MG TAB PO SCH (20:21)
[2021-04-06] MEDS: Morphine 2 MG/ML VIAL SLOW IVP PRN (22:48)
[2021-04-07] MEDS: Piperacillin/Tazobactam 3.375 GM in Sodium Chloride 0.9% 100 ML IVPB SCH ×3 (02:06→21:00)
[2021-04-07] MEDS: HumaLOG 300 UNITS/3 ML VIAL SC PRN ×2 (06:11→18:33)
[2021-04-07] MEDS: Morphine 2 MG/ML VIAL SLOW IVP PRN ×2 (06:18→13:36)
[2021-04-07] MEDS ORDERED: Furosemide 40 MG/4 ML VIAL SLOW IVP SCH (09:00)
[2021-04-07] MEDS: Aspirin 81 mg Enteric Coated Tablet PO SCH ×2 (10:39→12:39)
[2021-04-07] MEDS: Dexamethasone 4 mg/ml Vial SLOW IVP SCH (10:39)
[2021-04-07] MEDS: Enoxaparin Sodium 60 MG/0.6 ML SYRINGE SC SCH ×2 (10:45→21:01)
[2021-04-07] MEDS: Vancomycin 1 GM in Premix Bag 1 BAG IVPB SCH ×2 (10:46→23:08)
[2021-04-07] MEDS ORDERED: Pantoprazole 40 MG VIAL IVP SCH ×2 (18:00→18:15)
[2021-04-07] MEDS: Atorvastatin Calcium 40 MG TAB PO SCH (21:00)
[2021-04-08] MEDS: Piperacillin/Tazobactam 3.375 GM in Sodium Chloride 0.9% 100 ML IVPB SCH ×2 (02:21→13:09)
[2021-04-08 04:43] LABS: Hemoglobin 10.7 g/dL (14.0-18.0); Platelet Count 207 thou/uL (130-400)
[2021-04-08 04:57] LABS: Anion Gap 17 mmol/L (10-20); BUN (Urea Nitrogen) 14 mg/dL (8.4-25.7); Calc. Creatinine Clearance 80 mL/min (70-130); Calcium 8.7 mg/dL (7.8-10.44); Carbon Dioxide 24 mmol/L (22-29); Chloride 111 mmol/L (98-107); Glucose 182 mg/dL (70-105); Magnesium 1.3 mg/dL (1.6-2.6); Potassium 3.5 mmol/L (3.5-5.1); Sodium 148 mmol/L (136-145)
[2021-04-08] MEDS ORDERED: Magnesium 2 GM/50 ML 2 GM in Premix Bag 1 BAG IVPB SCH (07:00)
[2021-04-08] MEDS: Enoxaparin Sodium 60 MG/0.6 ML SYRINGE SC SCH ×2 (10:57→22:27)
[2021-04-08] MEDS: Vancomycin 1 GM in Premix Bag 1 BAG IVPB SCH ×2 (10:58→22:28)
[2021-04-08] MEDS: Furosemide 20 MG/2 ML VIAL SLOW IVP SCH (10:58)
[2021-04-08] MEDS: Dexamethasone 4 mg/ml Vial SLOW IVP SCH (11:00)
[2021-04-08] MEDS: Morphine 2 MG/ML VIAL SLOW IVP PRN ×2 (11:01→22:54)
[2021-04-08] MEDS: Aspirin 81 mg Enteric Coated Tablet PO SCH (11:07)
[2021-04-08] MEDS: Lisinopril 5 MG TAB PO SCH (11:07)
[2021-04-08] MEDS: Pantoprazole 40 MG VIAL IVP SCH ×2 (11:07→22:28)
[2021-04-08] MEDS: Potassium Chloride 20 MEQ TAB PO SCH (11:07)
[2021-04-08] MEDS ORDERED: Albuterol 200 PUFF (6.7GM INHALER) INH PRN (12:45)
[2021-04-08] MEDS: Atorvastatin Calcium 40 MG TAB PO SCH (22:27)
[2021-04-08] MEDS: Megestrol Acetate 40 MG TAB PO SCH (22:27)
[2021-04-09] MEDS: Piperacillin/Tazobactam 3.375 GM in Sodium Chloride 0.9% 100 ML IVPB SCH ×6 (00:36→21:33)
[2021-04-09] MEDS: Furosemide 20 MG/2 ML VIAL SLOW IVP SCH ×2 (11:39→12:40)
[2021-04-09] MEDS: Aspirin 81 mg Enteric Coated Tablet PO SCH ×2 (11:39→12:39)
[2021-04-09] MEDS: Enoxaparin Sodium 60 MG/0.6 ML SYRINGE SC SCH ×2 (11:41→21:31)
[2021-04-09] MEDS: Lisinopril 5 MG TAB PO SCH ×2 (11:41→12:40)
[2021-04-09] MEDS: Potassium Chloride 20 MEQ TAB PO SCH ×2 (11:41→12:39)
[2021-04-09] MEDS: Megestrol Acetate 40 MG TAB PO SCH ×3 (11:43→21:55)
[2021-04-09] MEDS: Dexamethasone 4 mg/ml Vial SLOW IVP SCH (11:45)
[2021-04-09] MEDS: Pantoprazole 40 MG VIAL IVP SCH ×2 (11:45→22:20)
[2021-04-09] MEDS ORDERED: Magnesium 2 GM/50 ML 2 GM in Premix Bag 1 BAG IVPB SCH (12:45)
[2021-04-09] MEDS: Vancomycin 1 GM in Premix Bag 1 BAG IVPB SCH ×2 (13:06→13:07)
[2021-04-09] MEDS: Dextrose 5% in Water 1,000 ML IV SCH (13:06)
[2021-04-09] MEDS: Morphine 2 MG/ML VIAL SLOW IVP PRN (13:08)
[2021-04-09] MEDS: Atorvastatin Calcium 40 MG TAB PO SCH (21:34)
[2021-04-10] MEDS: Vancomycin 1 GM in Premix Bag 1 BAG IVPB SCH ×2 (00:49→14:21)
[2021-04-10 05:18] LABS: #Eosinphils 0.1 thou/uL (0.0-0.7); #Monocytes 0.4 thou/uL (0.11-0.59); #Neutrophils 5.9 thou/uL (1.40-6.50); %Basophils 0.3 % (0.0-1.0); %Eosinophils 0.7 % (0.0-10.0); %Lymphocytes 12.9 % (21.0-51.0); %Monocytes 5.2 % (0.0-10.0); %Neutrophils 80.8 % (42.0-75.0); Hemoglobin 10.6 g/dL (14.0-18.0); Mean Corpuscular HGB CONC 32.1 g/dL (32.0-36.0); Mean Corpuscular Hemoglobin 29.5 pg (27.0-31.0); Mean Platelet Volume 9.5 fL (7.4-10.4); Platelet Count 234 thou/uL (130-400); RBC Distribution Width 13.4 % (11.5-14.5); Red Blood Cell (RBC) Count 3.58 mill/uL (4.70-6.10); White Blood Cell (WBC) Count 7.3 thou/uL (4.8-10.8)
[2021-04-10 05:47] LABS: ALT (SGPT) 8 U/L (8-55); AST (SGOT) 11 U/L (5-34); Albumin 2.8 g/dL (3.5-5.0); Alkaline Phosphatase 63 U/L (40-110); Anion Gap 13 mmol/L (10-20); BUN (Urea Nitrogen) 18 mg/dL (8.4-25.7); Bilirubin, Total 0.6 mg/dL (0.2-1.2); Calc. Creatinine Clearance 48 mL/min (70-130); Calcium 8.5 mg/dL (7.8-10.44); Carbon Dioxide 28 mmol/L (22-29); Chloride 112 mmol/L (98-107); Globulin 3.6 g/dL (2.4-3.5); Glucose 157 mg/dL (70-105); Magnesium 2.2 mg/dL (1.6-2.6); Protein, Total 6.4 g/dL (6.0-8.3); Sodium 150 mmol/L (136-145)
[2021-04-10 05:50] LABS: Phosphorus 1.9 mg/dL (2.3-4.7); Potassium 2.9 mmol/L (3.5-5.1)
[2021-04-10] MEDS ORDERED: Potassium Chloride 20 MEQ TAB PO SCH (06:15)
[2021-04-10] MEDS: Dexamethasone 4 mg/ml Vial SLOW IVP SCH (08:43)
[2021-04-10] MEDS: Potassium Chloride 20 MEQ TAB PO SCH ×2 (08:44→11:06)
[2021-04-10] MEDS: Aspirin 81 mg Enteric Coated Tablet PO SCH ×2 (08:45→11:06)
[2021-04-10] MEDS: Furosemide 20 MG/2 ML VIAL SLOW IVP SCH ×2 (08:45→09:20)
[2021-04-10] MEDS: Piperacillin/Tazobactam 3.375 GM in Sodium Chloride 0.9% 100 ML IVPB SCH ×3 (08:47→20:14)
[2021-04-10] MEDS: Enoxaparin Sodium 60 MG/0.6 ML SYRINGE SC SCH ×2 (08:49→20:22)
[2021-04-10] MEDS: Pantoprazole 40 MG VIAL IVP SCH ×2 (08:50→20:20)
[2021-04-10] MEDS: Morphine 2 MG/ML VIAL SLOW IVP PRN (08:50)
[2021-04-10] MEDS: Lisinopril 5 MG TAB PO SCH ×2 (08:52→11:06)
[2021-04-10] MEDS: PHOS-NAK 1 PKT PACK PO SCH ×2 (09:21→14:22)
[2021-04-10] MEDS: Megestrol Acetate 40 MG TAB PO SCH ×2 (09:22→20:22)
[2021-04-10] MEDS ORDERED: Potassium Chloride 30 MEQ in Sodium Chloride 0.9% 250 ML 250 ML IVPB SCH (11:30)
[2021-04-10 12:04] VITALS: BMI 19.1
[2021-04-10] MEDS: Dextrose 5% in Water 1,000 ML IV SCH (15:00)
[2021-04-10] MEDS ORDERED: Heparin 1,000 UNITS/ML VIAL ONE (15:28)
[2021-04-10] MEDS ORDERED: Amino Acids 4.25 %/Dextrose 5% 2,000 ML BAG IV SCH (16:00)
[2021-04-10] MEDS ORDERED: Amino Acids 4.25 %/Dextrose 5% 2,000 ML IV SCH (18:00)
[2021-04-10] MEDS: HumaLOG 300 UNITS/3 ML VIAL SC PRN (18:09)
[2021-04-10] MEDS: Atorvastatin Calcium 40 MG TAB PO SCH (20:14)
[2021-04-11] MEDS: Vancomycin 1 GM in Premix Bag 1 BAG IVPB SCH ×2 (01:11→12:12)
[2021-04-11] MEDS: Morphine 2 MG/ML VIAL SLOW IVP PRN (04:42)
[2021-04-11 05:06] LABS: #Eosinphils 0.1 thou/uL (0.0-0.7); #Monocytes 0.5 thou/uL (0.11-0.59); #Neutrophils 6.6 thou/uL (1.40-6.50); %Basophils 0.2 % (0.0-1.0); %Lymphocytes 11.8 % (21.0-51.0); %Monocytes 5.6 % (0.0-10.0); %Neutrophils 81.4 % (42.0-75.0); Mean Corpuscular HGB CONC 33.9 g/dL (32.0-36.0); Mean Corpuscular Hemoglobin 31.2 pg (27.0-31.0); Mean Corpuscular Volume 92.1 fL (78.0-98.0); Mean Platelet Volume 9.7 fL (7.4-10.4); Platelet Count 221 thou/uL (130-400); RBC Distribution Width 13.4 % (11.5-14.5); Red Blood Cell (RBC) Count 3.53 mill/uL (4.70-6.10); White Blood Cell (WBC) Count 8.2 thou/uL (4.8-10.8)
[2021-04-11 05:41] LABS: Anion Gap 15 mmol/L (10-20); BUN (Urea Nitrogen) 23 mg/dL (8.4-25.7); Calc. Creatinine Clearance 41 mL/min (70-130); Calcium 8.4 mg/dL (7.8-10.44); Carbon Dioxide 24 mmol/L (22-29); Chloride 110 mmol/L (98-107); Glucose 346 mg/dL (70-105); Magnesium 1.8 mg/dL (1.6-2.6); Potassium 3.4 mmol/L (3.5-5.1); Sodium 146 mmol/L (136-145)
[2021-04-11 05:44] LABS: Phosphorus 1.9 mg/dL (2.3-4.7)
[2021-04-11] MEDS: Dextrose 5% in Water 1,000 ML IV SCH (06:19)
[2021-04-11] MEDS ORDERED: Magnesium 2 GM/50 ML 2 GM in Premix Bag 1 BAG IVPB SCH (06:30)
[2021-04-11] MEDS ORDERED: Potassium Chloride 20 MEQ TAB PO SCH (07:00)
[2021-04-11] MEDS: Dexamethasone 4 mg/ml Vial SLOW IVP SCH (09:04)
[2021-04-11] MEDS: Furosemide 20 MG/2 ML VIAL SLOW IVP SCH (09:04)
[2021-04-11] MEDS: Pantoprazole 40 MG VIAL IVP SCH ×2 (09:05→21:09)
[2021-04-11] MEDS: Enoxaparin Sodium 60 MG/0.6 ML SYRINGE SC SCH ×2 (09:05→21:06)
[2021-04-11] MEDS: Piperacillin/Tazobactam 3.375 GM in Sodium Chloride 0.9% 100 ML IVPB SCH ×3 (09:20→21:08)
[2021-04-11] MEDS: Lisinopril 5 MG TAB PO SCH (10:42)
[2021-04-11] MEDS: PHOS-NAK 1 PKT PACK PO SCH ×2 (10:42→14:14)
[2021-04-11] MEDS: Potassium Chloride 20 MEQ TAB PO SCH (10:42)
[2021-04-11] MEDS: Aspirin 81 mg Enteric Coated Tablet PO SCH (10:42)
[2021-04-11] MEDS: Megestrol Acetate 40 MG TAB PO SCH ×2 (10:43→21:09)
[2021-04-11] MEDS: HumaLOG 300 UNITS/3 ML VIAL SC PRN (12:12)
[2021-04-11] MEDS ORDERED: Insulin Regular 300 UNITS/3 ML VIAL SC PRN (12:49)
[2021-04-11] MEDS ORDERED: Dextrose 5% in Water 1,000 ML IV PRN (12:49)
[2021-04-11] MEDS: Potassium Chloride 20 MEQ in Premix Bag 1 BAG IVPB SCH ×2 (16:29→18:14)
[2021-04-11] MEDS: Insulin Regular 300 UNITS/3 ML VIAL SC PRN (16:30)
[2021-04-11] MEDS: Atorvastatin Calcium 40 MG TAB PO SCH (21:09)
[2021-04-11] MEDS: Lantus 1000 UNITS/10 ML VIAL SC SCH (22:57)
[2021-04-12] MEDS: Vancomycin 1 GM in Premix Bag 1 BAG IVPB SCH ×2 (00:15→11:44)
[2021-04-12] MEDS: Dextrose 5% in Water 1,000 ML IV SCH (02:55)
[2021-04-12 06:02] LABS: Anion Gap 11 mmol/L (10-20); BUN (Urea Nitrogen) 31 mg/dL (8.4-25.7); Calc. Creatinine Clearance 40 mL/min (70-130); Calcium 8.4 mg/dL (7.8-10.44); Carbon Dioxide 28 mmol/L (22-29); Chloride 108 mmol/L (98-107); Glucose 308 mg/dL (70-105); Magnesium 1.8 mg/dL (1.6-2.6); Phosphorus 1.4 mg/dL (2.3-4.7); Sodium 144 mmol/L (136-145)
[2021-04-12] MEDS: Piperacillin/Tazobactam 3.375 GM in Sodium Chloride 0.9% 100 ML IVPB SCH ×3 (06:04→14:45)
[2021-04-12] MEDS ORDERED: Magnesium 2 GM/50 ML 2 GM in Premix Bag 1 BAG IVPB SCH (06:15)
[2021-04-12] MEDS: Insulin Regular 300 UNITS/3 ML VIAL SC PRN ×2 (06:22→17:14)
[2021-04-12] MEDS ORDERED: Potassium Chloride 20 MEQ TAB PO SCH (07:00)
[2021-04-12] MEDS: Enoxaparin Sodium 60 MG/0.6 ML SYRINGE SC SCH ×2 (08:09→20:31)
[2021-04-12] MEDS: Dexamethasone 4 mg/ml Vial SLOW IVP SCH (08:09)
[2021-04-12] MEDS: Pantoprazole 40 MG VIAL IVP SCH (08:12)
[2021-04-12] MEDS: PHOS-NAK 1 PKT PACK PO SCH ×3 (08:30→17:14)
[2021-04-12] MEDS: Potassium Chloride 20 MEQ TAB PO SCH (10:51)
[2021-04-12] MEDS: Aspirin 81 mg Enteric Coated Tablet PO SCH (10:51)
[2021-04-12] MEDS: Lisinopril 5 MG TAB PO SCH (10:51)
[2021-04-12] MEDS: Megestrol Acetate 40 MG TAB PO SCH (10:52)
[2021-04-12] MEDS: Morphine 2 MG/ML VIAL SLOW IVP PRN (15:17)
[2021-04-12] MEDS: NS 0.9% w/ 40 MEQ KCL 1,000 ML IV SCH (16:01)
[2021-04-13] MEDS: Atorvastatin Calcium 40 MG TAB PO SCH ×2 (00:55→20:45)
[2021-04-13] MEDS: PHOS-NAK 1 PKT PACK PO SCH (00:55)
[2021-04-13] MEDS: Lantus 1000 UNITS/10 ML VIAL SC SCH ×2 (00:55→20:59)
[2021-04-13] MEDS: Megestrol Acetate 40 MG TAB PO SCH ×3 (00:56→20:45)
[2021-04-13] MEDS: Pantoprazole 40 MG VIAL IVP SCH ×3 (00:57→21:00)
[2021-04-13] MEDS: Vancomycin 1 GM in Premix Bag 1 BAG IVPB SCH ×3 (01:18→23:49)
[2021-04-13] MEDS: NS 0.9% w/ 40 MEQ KCL 1,000 ML IV SCH (03:00)
[2021-04-13] MEDS ORDERED: Potassium Chloride 40 MEQ in Sodium Chloride 0.9% 250 ML 250 ML IVPB SCH (05:15)
[2021-04-13] MEDS: Piperacillin/Tazobactam 3.375 GM in Sodium Chloride 0.9% 100 ML IVPB SCH ×3 (08:06→20:45)
[2021-04-13] MEDS: Dexamethasone 4 mg/ml Vial SLOW IVP SCH (08:07)
[2021-04-13] MEDS: Enoxaparin Sodium 60 MG/0.6 ML SYRINGE SC SCH ×2 (08:07→20:46)
[2021-04-13 08:26] LABS: Anion Gap 17 mmol/L (10-20); BUN (Urea Nitrogen) 27 mg/dL (8.4-25.7); Calc. Creatinine Clearance 41 mL/min (70-130); Calcium 8.7 mg/dL (7.8-10.44); Carbon Dioxide 21 mmol/L (22-29); Chloride 115 mmol/L (98-107); Glucose 187 mg/dL (70-105); Magnesium 2.2 mg/dL (1.6-2.6); Phosphorus 2.6 mg/dL (2.3-4.7); Potassium 4.3 mmol/L (3.5-5.1); Sodium 149 mmol/L (136-145)
[2021-04-13] MEDS ORDERED: Potassium Chloride 40 MEQ in Dextrose 5% in Water 1,000 ML IV SCH (12:30)
[2021-04-13] MEDS: Dextrose 5% in Water 1,000 ML IV SCH (12:50)
[2021-04-13] MEDS: Insulin Regular 300 UNITS/3 ML VIAL SC PRN ×2 (12:51→17:13)
[2021-04-13] MEDS: Morphine 2 MG/ML VIAL SLOW IVP PRN (14:19)
[2021-04-13] MEDS: Aspirin 81 mg Enteric Coated Tablet PO SCH (14:35)
[2021-04-13] MEDS: Potassium Chloride 20 MEQ TAB PO SCH (14:35)
[2021-04-14] MEDS: Dextrose 5% in Water 1,000 ML IV SCH ×2 (03:36→16:05)
[2021-04-14 04:56] LABS: ALT (SGPT) Less than 7 U/L (8-55); AST (SGOT) 10 U/L (5-34); Albumin 2.7 g/dL (3.5-5.0); Alkaline Phosphatase 60 U/L (40-110); Anion Gap 10 mmol/L (10-20); BUN (Urea Nitrogen) 21 mg/dL (8.4-25.7); Bilirubin, Total 0.5 mg/dL (0.2-1.2); Calc. Creatinine Clearance 42 mL/min (70-130); Calcium 8.5 mg/dL (7.8-10.44); Carbon Dioxide 25 mmol/L (22-29); Chloride 113 mmol/L (98-107); Globulin 3.5 g/dL (2.4-3.5); Glucose 231 mg/dL (70-105); Magnesium 1.9 mg/dL (1.6-2.6); Phosphorus 2.4 mg/dL (2.3-4.7); Potassium 3.3 mmol/L (3.5-5.1); Protein, Total 6.2 g/dL (6.0-8.3); Sodium 145 mmol/L (136-145)
[2021-04-14] MEDS ORDERED: Magnesium 2 GM/50 ML 2 GM in Premix Bag 1 BAG IVPB SCH (05:15)
[2021-04-14] MEDS: Piperacillin/Tazobactam 3.375 GM in Sodium Chloride 0.9% 100 ML IVPB SCH ×3 (05:36→21:03)
[2021-04-14] MEDS: Insulin Regular 300 UNITS/3 ML VIAL SC PRN (05:40)
[2021-04-14] MEDS: Enoxaparin Sodium 60 MG/0.6 ML SYRINGE SC SCH ×2 (08:18→21:00)
[2021-04-14] MEDS: Pantoprazole 40 MG VIAL IVP SCH ×2 (08:18→21:02)
[2021-04-14] MEDS: Dexamethasone 4 mg/ml Vial SLOW IVP SCH (08:18)
[2021-04-14] MEDS ORDERED: Potassium Chloride 40 MEQ in Sodium Chloride 0.9% 250 ML 250 ML IVPB SCH (10:45)
[2021-04-14] MEDS: Megestrol Acetate 40 MG TAB PO SCH ×2 (10:49→21:02)
[2021-04-14] MEDS: Potassium Chloride 20 MEQ TAB PO SCH (10:49)
[2021-04-14] MEDS: Aspirin 81 mg Enteric Coated Tablet PO SCH (10:49)
[2021-04-14] MEDS: Vancomycin 1 GM in Premix Bag 1 BAG IVPB SCH (11:45)
[2021-04-14] MEDS: Atorvastatin Calcium 40 MG TAB PO SCH (20:59)
[2021-04-14] MEDS: Lantus 1000 UNITS/10 ML VIAL SC SCH (21:00)
[2021-04-15] MEDS: Vancomycin 1 GM in Premix Bag 1 BAG IVPB SCH ×2 (00:46→11:26)
[2021-04-15] MEDS: Amino Acids 4.25 %/Dextrose 5% 2,000 ML IV SCH (03:55)
[2021-04-15 05:31] LABS: ALT (SGPT) Less than 7 U/L (8-55); AST (SGOT) 9 U/L (5-34); Albumin 2.6 g/dL (3.5-5.0); Alkaline Phosphatase 55 U/L (40-110); Anion Gap 11 mmol/L (10-20); BUN (Urea Nitrogen) 15 mg/dL (8.4-25.7); Bilirubin, Total 0.6 mg/dL (0.2-1.2); Calc. Creatinine Clearance 46 mL/min (70-130); Calcium 8.5 mg/dL (7.8-10.44); Carbon Dioxide 21 mmol/L (22-29); Chloride 109 mmol/L (98-107); Globulin 3.6 g/dL (2.4-3.5); Glucose 242 mg/dL (70-105); Magnesium 1.9 mg/dL (1.6-2.6); Phosphorus 2.1 mg/dL (2.3-4.7); Potassium 3.2 mmol/L (3.5-5.1); Protein, Total 6.2 g/dL (6.0-8.3); Sodium 138 mmol/L (136-145)
[2021-04-15] MEDS: Piperacillin/Tazobactam 3.375 GM in Sodium Chloride 0.9% 100 ML IVPB SCH ×3 (05:55→21:44)
[2021-04-15] MEDS: Insulin Regular 300 UNITS/3 ML VIAL SC PRN ×3 (06:22→16:48)
[2021-04-15] MEDS ORDERED: Potassium Chloride 20 MEQ TAB PO SCH (06:45)
[2021-04-15] MEDS ORDERED: Magnesium 2 GM/50 ML 2 GM in Premix Bag 1 BAG IVPB SCH (06:45)
[2021-04-15] MEDS: Furosemide 20 MG/2 ML VIAL SLOW IVP SCH (09:17)
[2021-04-15] MEDS: Dexamethasone 4 mg/ml Vial SLOW IVP SCH (09:18)
[2021-04-15] MEDS: Enoxaparin Sodium 60 MG/0.6 ML SYRINGE SC SCH ×2 (09:18→21:37)
[2021-04-15] MEDS: Pantoprazole 40 MG VIAL IVP SCH ×2 (09:18→21:37)
[2021-04-15] MEDS: Potassium Chloride 20 MEQ TAB PO SCH (11:08)
[2021-04-15] MEDS: Megestrol Acetate 40 MG TAB PO SCH ×2 (11:08→21:38)
[2021-04-15] MEDS: Aspirin 81 mg Enteric Coated Tablet PO SCH (11:08)
[2021-04-15] MEDS: Potassium Chloride 20 MEQ in Premix Bag 1 BAG IVPB SCH ×2 (13:05→14:55)
[2021-04-15] MEDS: Dextrose 5% in Water 1,000 ML IV SCH ×2 (18:19→18:20)
[2021-04-15] MEDS: Lantus 1000 UNITS/10 ML VIAL SC SCH (21:37)
[2021-04-15] MEDS: Atorvastatin Calcium 40 MG TAB PO SCH (21:39)
[2021-04-16] MEDS: Amino Acids 4.25 %/Dextrose 5% 2,000 ML IV SCH (02:32)
[2021-04-16 05:51] LABS: ALT (SGPT) Less than 7 U/L (8-55); AST (SGOT) 11 U/L (5-34); Albumin 2.7 g/dL (3.5-5.0); Alkaline Phosphatase 56 U/L (40-110); Anion Gap 12 mmol/L (10-20); BUN (Urea Nitrogen) 32 mg/dL (8.4-25.7); Bilirubin, Total 0.6 mg/dL (0.2-1.2); Calc. Creatinine Clearance 47 mL/min (70-130); Calcium 8.5 mg/dL (7.8-10.44); Carbon Dioxide 21 mmol/L (22-29); Chloride 105 mmol/L (98-107); Glucose 126 mg/dL (70-105); Magnesium 1.8 mg/dL (1.6-2.6); Potassium 4.2 mmol/L (3.5-5.1); Protein, Total 6.7 g/dL (6.0-8.3); Sodium 134 mmol/L (136-145)
[2021-04-16] MEDS: Piperacillin/Tazobactam 3.375 GM in Sodium Chloride 0.9% 100 ML IVPB SCH ×3 (05:59→21:41)
[2021-04-16] MEDS ORDERED: Magnesium 2 GM/50 ML 2 GM in Premix Bag 1 BAG IVPB SCH (06:00)
[2021-04-16 06:01] LABS: Phosphorus 1.9 mg/dL (2.3-4.7)
[2021-04-16] MEDS: Dextrose 5% in Water 1,000 ML IV SCH ×2 (06:06→19:46)
[2021-04-16] MEDS: Pantoprazole 40 MG VIAL IVP SCH ×2 (09:25→20:46)
[2021-04-16] MEDS: PHOS-NAK 1 PKT PACK PO SCH ×2 (09:25→11:51)
[2021-04-16] MEDS: Enoxaparin Sodium 60 MG/0.6 ML SYRINGE SC SCH ×2 (09:25→20:46)
[2021-04-16] MEDS: Furosemide 20 MG/2 ML VIAL SLOW IVP SCH (09:25)
[2021-04-16] MEDS: Dexamethasone 4 mg/ml Vial SLOW IVP SCH (09:25)
[2021-04-16] MEDS: Aspirin 81 mg Enteric Coated Tablet PO SCH (09:26)
[2021-04-16] MEDS: Megestrol Acetate 40 MG TAB PO SCH ×2 (09:26→20:52)
[2021-04-16] MEDS: Potassium Chloride 20 MEQ TAB PO SCH (09:26)
[2021-04-16] MEDS: Lisinopril 5 MG TAB PO SCH (09:26)
[2021-04-16] MEDS ORDERED: Sodium Phosphate 30 MMOL in Sodium Chloride 0.9% 250 ML 250 ML IVPB SCH (11:00)
[2021-04-16] MEDS: Insulin Regular 300 UNITS/3 ML VIAL SC PRN ×2 (12:41→17:01)
[2021-04-16] MEDS: Atorvastatin Calcium 40 MG TAB PO SCH (20:47)
[2021-04-16] MEDS: Lantus 1000 UNITS/10 ML VIAL SC SCH (20:47)
[2021-04-16 23:32] LABS: Vancomycin, Random 36.3 ug/mL (See Comment)
[2021-04-16] MEDS ORDERED: VANCOMYCIN HCL IVPB SCH (23:59)
[2021-04-16] MEDS ORDERED: SODIUM CHLORIDE 0.9% IVPB SCH (23:59)
[2021-04-17] MEDS: Amino Acids 4.25 %/Dextrose 5% 2,000 ML IV SCH (03:26)
[2021-04-17] MEDS: Piperacillin/Tazobactam 3.375 GM in Sodium Chloride 0.9% 100 ML IVPB SCH (05:10)
[2021-04-17 05:39] LABS: ALT (SGPT) 7 U/L (8-55); AST (SGOT) 11 U/L (5-34); Albumin 2.7 g/dL (3.5-5.0); Alkaline Phosphatase 49 U/L (40-110); Anion Gap 10 mmol/L (10-20); BUN (Urea Nitrogen) 40 mg/dL (8.4-25.7); Bilirubin, Total 0.5 mg/dL (0.2-1.2); Calc. Creatinine Clearance 44 mL/min (70-130); Calcium 8.1 mg/dL (7.8-10.44); Carbon Dioxide 20 mmol/L (22-29); Chloride 104 mmol/L (98-107); Globulin 3.9 g/dL (2.4-3.5); Glucose 151 mg/dL (70-105); Protein, Total 6.6 g/dL (6.0-8.3); Sodium 131 mmol/L (136-145)
[2021-04-17 05:44] LABS: Potassium 2.8 mmol/L (3.5-5.1)
[2021-04-17] MEDS: Insulin Regular 300 UNITS/3 ML VIAL SC PRN ×3 (06:30→17:37)
[2021-04-17] MEDS ORDERED: Potassium Chloride 20 MEQ TAB PO SCH (07:00)
[2021-04-17] MEDS: Potassium Chloride 40 MEQ in Sodium Chloride 0.9% 250 ML 250 ML IVPB SCH ×2 (07:11→11:19)
[2021-04-17] MEDS: Dexamethasone 4 mg/ml Vial SLOW IVP SCH (08:24)
[2021-04-17] MEDS: Furosemide 20 MG/2 ML VIAL SLOW IVP SCH (08:24)
[2021-04-17] MEDS: Aspirin 81 mg Enteric Coated Tablet PO SCH (08:24)
[2021-04-17] MEDS: Potassium Chloride 20 MEQ TAB PO SCH (08:24)
[2021-04-17] MEDS: Megestrol Acetate 40 MG TAB PO SCH ×2 (08:25→21:15)
[2021-04-17] MEDS: Lisinopril 5 MG TAB PO SCH (08:25)
[2021-04-17] MEDS: Pantoprazole 40 MG VIAL IVP SCH ×2 (08:25→21:16)
[2021-04-17] MEDS: Enoxaparin Sodium 60 MG/0.6 ML SYRINGE SC SCH ×2 (08:25→21:15)
[2021-04-17] MEDS: Dextrose 5% in Water 1,000 ML IV SCH ×2 (10:07→22:20)
[2021-04-17] MEDS: Atorvastatin Calcium 40 MG TAB PO SCH (21:14)
[2021-04-17] MEDS: Lantus 1000 UNITS/10 ML VIAL SC SCH (21:20)
[2021-04-18] MEDS: Amino Acids 4.25 %/Dextrose 5% 2,000 ML IV SCH (02:21)
[2021-04-18 05:39] LABS: #Eosinphils 0.4 thou/uL (0.0-0.7); #Lymphocytes 1.4 thou/uL (1.20-3.40); #Monocytes 0.5 thou/uL (0.11-0.59); #Neutrophils 3.7 thou/uL (1.40-6.50); %Basophils 0.8 % (0.0-1.0); %Eosinophils 6.4 % (0.0-10.0); %Lymphocytes 23.6 % (21.0-51.0); %Monocytes 8.2 % (0.0-10.0); Hemoglobin 9.6 g/dL (14.0-18.0); Mean Corpuscular HGB CONC 34.3 g/dL (32.0-36.0); Mean Corpuscular Hemoglobin 30.6 pg (27.0-31.0); Mean Corpuscular Volume 89.4 fL (78.0-98.0); Platelet Count 154 thou/uL (130-400); RBC Distribution Width 13.4 % (11.5-14.5); Red Blood Cell (RBC) Count 3.14 mill/uL (4.70-6.10)
[2021-04-18 06:03] LABS: ALT (SGPT) 7 U/L (8-55); AST (SGOT) 11 U/L (5-34); Albumin 2.9 g/dL (3.5-5.0); Alkaline Phosphatase 50 U/L (40-110); Anion Gap 12 mmol/L (10-20); BUN (Urea Nitrogen) 41 mg/dL (8.4-25.7); Bilirubin, Total 0.5 mg/dL (0.2-1.2); Calc. Creatinine Clearance 49 mL/min (70-130); Calcium 8.2 mg/dL (7.8-10.44); Carbon Dioxide 19 mmol/L (22-29); Chloride 103 mmol/L (98-107); Globulin 3.8 g/dL (2.4-3.5); Glucose 166 mg/dL (70-105); Protein, Total 6.7 g/dL (6.0-8.3); Sodium 131 mmol/L (136-145)
[2021-04-18] MEDS: Insulin Regular 300 UNITS/3 ML VIAL SC PRN ×2 (06:39→11:57)
[2021-04-18] MEDS ORDERED: Potassium Chloride 40 MEQ in Sodium Chloride 0.9% 250 ML 250 ML IVPB SCH (08:00)
[2021-04-18] MEDS: Lisinopril 5 MG TAB PO SCH (08:50)
[2021-04-18] MEDS: Aspirin 81 mg Enteric Coated Tablet PO SCH (08:50)
[2021-04-18] MEDS: Megestrol Acetate 40 MG TAB PO SCH ×2 (08:50→21:06)
[2021-04-18] MEDS: Potassium Chloride 20 MEQ TAB PO SCH (08:50)
[2021-04-18] MEDS: Enoxaparin Sodium 60 MG/0.6 ML SYRINGE SC SCH (08:51)
[2021-04-18] MEDS: Dexamethasone 4 mg/ml Vial SLOW IVP SCH (08:52)
[2021-04-18] MEDS: Pantoprazole 40 MG VIAL IVP SCH ×2 (08:53→21:06)
[2021-04-18] MEDS: Furosemide 20 MG/2 ML VIAL SLOW IVP SCH (08:53)
[2021-04-18] MEDS: metroNIDAZOLE 500 MG in Premix Bag 1 BAG IVPB SCH ×2 (11:56→18:30)
[2021-04-18] MEDS: Dextrose 5% in Water 1,000 ML IV SCH (11:57)
[2021-04-18] MEDS: Atorvastatin Calcium 40 MG TAB PO SCH (21:05)
[2021-04-18] MEDS: Lantus 1000 UNITS/10 ML VIAL SC SCH (21:07)
[2021-04-18] MEDS: Sodium Chloride 0.9% 1,000 ML IV SCH (21:08)
[2021-04-19] MEDS: metroNIDAZOLE 500 MG in Premix Bag 1 BAG IVPB SCH ×3 (03:32→18:03)
[2021-04-19] MEDS: Amino Acids 4.25 %/Dextrose 5% 2,000 ML IV SCH (04:54)
[2021-04-19] MEDS: Insulin Regular 300 UNITS/3 ML VIAL SC PRN (05:57)
[2021-04-19 06:25] LABS: ALT (SGPT) 7 U/L (8-55); AST (SGOT) 8 U/L (5-34); Alkaline Phosphatase 51 U/L (40-110); Anion Gap 12 mmol/L (10-20); BUN (Urea Nitrogen) 43 mg/dL (8.4-25.7); Bilirubin, Total 0.3 mg/dL (0.2-1.2); Calc. Creatinine Clearance 50 mL/min (70-130); Calcium 8.5 mg/dL (7.8-10.44); Carbon Dioxide 16 mmol/L (22-29); Chloride 105 mmol/L (98-107); Globulin 3.8 g/dL (2.4-3.5); Glucose 182 mg/dL (70-105); Magnesium 1.4 mg/dL (1.6-2.6); Potassium 3.3 mmol/L (3.5-5.1); Protein, Total 6.8 g/dL (6.0-8.3); Sodium 130 mmol/L (136-145)
[2021-04-19] MEDS ORDERED: Magnesium Sulfate 4 GM in Sodium Chloride 0.9% 250 ML 250 ML IVPB SCH (06:45)
[2021-04-19] MEDS ORDERED: Potassium Chloride 40 MEQ in Sodium Chloride 0.9% 250 ML 250 ML IVPB SCH (07:00)
[2021-04-19] MEDS: Lisinopril 5 MG TAB PO SCH (07:56)
[2021-04-19] MEDS: Potassium Chloride 20 MEQ TAB PO SCH (07:56)
[2021-04-19] MEDS: Megestrol Acetate 40 MG TAB PO SCH (07:56)
[2021-04-19] MEDS: Furosemide 20 MG/2 ML VIAL SLOW IVP SCH (08:00)
[2021-04-19] MEDS: Pantoprazole 40 MG VIAL IVP SCH ×2 (08:00→21:59)
[2021-04-19] MEDS: Sodium Chloride 0.9% 1,000 ML IV SCH ×2 (09:50→23:34)
[2021-04-19] MEDS ORDERED: PROPOFOL 200 MG/20 ML VIAL ONE (10:22)
[2021-04-19] MEDS ORDERED: Lidocaine 1% PF 5 ML VIAL ONE (10:22)
[2021-04-19] MEDS ORDERED: HYDROmorphone 2 MG/ML VIAL SLOW IVP PRN (11:00)
[2021-04-19] MEDS ORDERED: Promethazine HCl 25 MG/ML VIAL IVPB PRN (11:00)
[2021-04-19] MEDS ORDERED: Ondansetron HCl/PF 4 MG/2 ML Vial IVP PRN (11:00)
[2021-04-19] MEDS ORDERED: Promethazine HCl 25 MG/ML VIAL IM PRN (11:00)
[2021-04-19] MEDS: Atorvastatin Calcium 40 MG TAB PO SCH (21:59)
[2021-04-19] MEDS: Enoxaparin Sodium 60 MG/0.6 ML SYRINGE SC SCH (21:59)
[2021-04-19] MEDS: Vancomycin HCl 25 MG/ML Oral PER TUBE SCH (22:03)
[2021-04-19] MEDS: Lantus 1000 UNITS/10 ML VIAL SC SCH (22:04)
[2021-04-20] MEDS: metroNIDAZOLE 500 MG in Premix Bag 1 BAG IVPB SCH (02:10)
[2021-04-20] MEDS: Vancomycin HCl 25 MG/ML Oral PER TUBE SCH ×4 (02:24→22:42)
[2021-04-20 05:22] LABS: Hemoglobin 9.5 g/dL (14.0-18.0); Platelet Count 183 thou/uL (130-400)
[2021-04-20 05:36] LABS: ALT (SGPT) 10 U/L (8-55); AST (SGOT) 19 U/L (5-34); Albumin 2.8 g/dL (3.5-5.0); Alkaline Phosphatase 57 U/L (40-110); Anion Gap 10 mmol/L (10-20); BUN (Urea Nitrogen) 36 mg/dL (8.4-25.7); Bilirubin, Total 0.3 mg/dL (0.2-1.2); Calc. Creatinine Clearance 51 mL/min (70-130); Calcium 8.5 mg/dL (7.8-10.44); Carbon Dioxide 18 mmol/L (22-29); Chloride 115 mmol/L (98-107); Globulin 3.8 g/dL (2.4-3.5); Potassium 3.6 mmol/L (3.5-5.1); Protein, Total 6.6 g/dL (6.0-8.3); Sodium 139 mmol/L (136-145)
[2021-04-20 05:41] LABS: Glucose 53 mg/dL (70-105)
[2021-04-20] MEDS: Dextrose 50% Abboject 50 ML SYRINGE SLOW IVP PRN ×2 (05:48→13:31)
[2021-04-20] MEDS: Pantoprazole 40 MG VIAL IVP SCH ×2 (08:44→22:40)
[2021-04-20] MEDS: Potassium Chloride 20 MEQ TAB PO SCH (08:44)
[2021-04-20] MEDS: Lisinopril 5 MG TAB PO SCH (08:45)
[2021-04-20] MEDS: Furosemide 20 MG/2 ML VIAL SLOW IVP SCH (08:45)
[2021-04-20] MEDS: Enoxaparin Sodium 60 MG/0.6 ML SYRINGE SC SCH ×2 (08:45→22:42)
[2021-04-20] MEDS: Aspirin 81 mg Enteric Coated Tablet PO SCH (08:45)
[2021-04-20] MEDS: Lantus 1000 UNITS/10 ML VIAL SC SCH (20:40)
[2021-04-20] MEDS: Atorvastatin Calcium 40 MG TAB PO SCH (22:42)
[2021-04-21] MEDS: Vancomycin HCl 25 MG/ML Oral PER TUBE SCH ×3 (03:55→16:47)
[2021-04-21] MEDS: Potassium Chloride 20 MEQ TAB PO SCH (09:19)
[2021-04-21] MEDS: Lisinopril 5 MG TAB PO SCH (09:19)
[2021-04-21] MEDS: Enoxaparin Sodium 60 MG/0.6 ML SYRINGE SC SCH (09:19)
[2021-04-21] MEDS: Furosemide 20 MG/2 ML VIAL SLOW IVP SCH (09:19)
[2021-04-21] MEDS: Aspirin 81 mg Enteric Coated Tablet PO SCH (09:19)
[2021-04-21] MEDS: Pantoprazole 40 MG VIAL IVP SCH (09:20)
[2021-04-21] MEDS ORDERED: Dextrose 50% Abboject 50 ML SYRINGE SLOW IVP PRN (12:02)
[2021-04-21] MEDS ORDERED: Dextrose 5% in Water 1,000 ML IV PRN (12:02)
[2021-04-21] MEDS: HumaLOG 300 UNITS/3 ML VIAL SC PRN ×2 (12:20→16:41)
[2021-04-21 14:51] VITALS: BP 112/60; TEMP 97.8
== END 2021-04-21 17:29 | DRG 177 ==
LOC: ERS 17:17 → 2SW 21:01
PROVIDERS: ADMIT Student in an Organized Health Care Education/Training Program; ATTEND Hospitalist
PROC: 8E0ZXY6 Isolation (ICD-10-PCS; 2021-04-03)
PROC: 02HV33Z Insertion of Infusion Device into Superior Vena Cava, Percutaneous Approach (ICD-10-PCS; principal; 2021-04-10)
PROC: B548ZZA Ultrasonography of Superior Vena Cava, Guidance (ICD-10-PCS; 2021-04-10)
PROC: 0DH67UZ Insertion of Feeding Device into Stomach, Via Natural or Artificial Opening (ICD-10-PCS; 2021-04-12)
PROC: 0DH63UZ Insertion of Feeding Device into Stomach, Percutaneous Approach (ICD-10-PCS; 2021-04-19)
DX: U07.1 COVID-19 (principal); J96.01 Acute respiratory failure with hypoxia; J12.82 Pneumonia due to coronavirus disease 2019; I21.A1 Myocardial infarction type 2; I50.43 Acute on chronic combined systolic (congestive) and diastolic (congestive) heart failure; E43 Unspecified severe protein-calorie malnutrition; G93.40 Encephalopathy, unspecified; I31.3 Pericardial effusion (noninflammatory); E87.0 Hyperosmolality and hypernatremia; A04.72 Enterocolitis due to Clostridium difficile, not specified as recurrent; I69.351 Hemiplegia and hemiparesis following cerebral infarction affecting right dominant side; Z68.1 Body mass index [BMI] 19.9 or less, adult; E78.5 Hyperlipidemia, unspecified; E78.00 Pure hypercholesterolemia, unspecified; G40.909 Epilepsy, unspecified, not intractable, without status epilepticus; D64.9 Anemia, unspecified; R13.10 Dysphagia, unspecified; K80.20 Calculus of gallbladder without cholecystitis without obstruction; E04.1 Nontoxic single thyroid nodule; E87.6 Hypokalemia; E83.42 Hypomagnesemia; Z53.20 Procedure and treatment not carried out because of patient's decision for unspecified reasons; E11.65 Type 2 diabetes mellitus with hyperglycemia; E11.51 Type 2 diabetes mellitus with diabetic peripheral angiopathy without gangrene; I11.0 Hypertensive heart disease with heart failure; R13.12 Dysphagia, oropharyngeal phase; R62.7 Adult failure to thrive; Z87.891 Personal history of nicotine dependence; Z79.84 Long term (current) use of oral hypoglycemic drugs; Z79.51 Long term (current) use of inhaled steroids; Z79.899 Other long term (current) drug therapy; Z89.512 Acquired absence of left leg below knee; Z93.1 Gastrostomy status; Z78.1 Physical restraint status
CPT/HCPCS: 36415; 36416; 36569; 70450; 71045; 71275; 74018; 80048; 80053; 80202; 81003; 82550; 82553; 82728; 83605; 83690; 83735; 83880; 84100; 84443; 84484; 85014; 85018; 85025; 85049; 86140; 87040; 87086; 87324; 87449; 87493; 93005; 93306; 96365; 96367; 96375; C1751; C9113; J0456; J0696; J1100; J1644; J1650; J1815; J1940; J2270; J2543; J2704; J3370; J3475; J3480; J3490; J7050; J7070; Q9967; S0179

== ENCOUNTER 2021-07-31 12:44 | Inpatient (IN) | payer MEDICARE ==
[2021-07-31] MEDS ORDERED: Vancomycin 1 GM/200 ML BAG ONE (13:07)
[2021-07-31] MEDS ORDERED: Cefepime 2 GM VIAL ONE (13:07)
[2021-07-31 13:42] LABS: Bilirubin Negative (Negative); Blood, Urine Negative (Negative); Clarity Clear (Clear); Glucose, Urine (Dipstick) Normal (Negative); Ketone, Urine Negative (Negative); Leukocyte Negative Leu/uL (Negative); Nitrite Negative (Negative); Protein, Urine (Dipstick) Negative (Neg-Trace); Specific Gravity, Urine 1.016 (1.002-1.036); Urobilinogen Normal mg/dL (Less than 2)
[2021-07-31 13:50] LABS: Hemoglobin 10.2 g/dL (14.0-18.0); Mean Corpuscular Hemoglobin 28.4 pg (27.0-31.0); Mean Corpuscular Volume 86.1 fL (78.0-98.0); RBC Distribution Width 14.6 % (11.5-14.5); Red Blood Cell (RBC) Count 3.58 mill/uL (4.70-6.10); White Blood Cell (WBC) Count 12.5 thou/uL (4.8-10.8)
[2021-07-31 13:53] LABS: INR-International Normal Ratio 1.1; Prothrombin Time 14.5 sec (12.0-14.7)
[2021-07-31 13:54] LABS: PTT 37.8 sec (22.9-36.1)
[2021-07-31 14:01] LABS: ALT (SGPT) 9 U/L (8-55); AST (SGOT) 13 U/L (5-34); Albumin 3.4 g/dL (3.5-5.0); Alkaline Phosphatase 62 U/L (40-110); Anion Gap 12 mmol/L (10-20); BUN (Urea Nitrogen) 62 mg/dL (8.4-25.7); Bilirubin, Total 0.6 mg/dL (0.2-1.2); Calc. Creatinine Clearance 0 mL/min (70-130); Calcium 9.3 mg/dL (7.8-10.44); Carbon Dioxide 28 mmol/L (22-29); Chloride 106 mmol/L (98-107); Globulin 3.4 g/dL (2.4-3.5); Glucose 185 mg/dL (70-105); Lipase 29 U/L (8-78); Potassium 4.2 mmol/L (3.5-5.1); Protein, Total 6.8 g/dL (6.0-8.3); Sodium 142 mmol/L (136-145)
[2021-07-31 14:13] LABS: Band 29 % (5-11); Large Platelets SLIGHT; Lymphocytes 21 % (21-51); MDiff Complete? YES; Mean Platelet Volume 13.7 fL (7.4-10.4); Metamyelocyte 1 % (0-0); Monocytes 10 % (0-10); Neutrophil 35 % (42-75); Platelet Count 88 thou/uL (130-400); Platelet Morphology Comment Appears Decreased; Polychromasia SLIGHT = 2-3 cells (100X) (0-2/hpf); Reactive Lymphocytes 3 % (0-10); Vacuoles SLIGHT
[2021-07-31 15:01] LABS: SARS-CoV-2 NAA Rapid Test Not Detected (NotDetected)
[2021-07-31 15:41] LABS: Actual Bicarbonate (HCO3v) 22 mEq/L (22-28); Analyzer IN Cardio ER; Base Excess -2.4 mEq/L (-2.0 to +3.0); Calcium, Ionized (venous) 1.07 mmol/L (1.16-1.32); Chloride (VBG) 109 mmol/L (98-106); Hemoglobin (Hb) 9.6 g/dL (13.1-17.2); Sodium 140.7 mmol/L (133-146); pH (venous) 7.38 (7.32-7.43)
[2021-07-31] MEDS ORDERED: Acetaminophen 325 MG TAB PER TUBE PRN (16:06)
[2021-07-31] MEDS ORDERED: Dextrose 5% in Water 1,000 ML IV PRN (16:08)
[2021-07-31] MEDS ORDERED: Dextrose 50% Abboject 50 ML SYRINGE SLOW IVP PRN (16:08)
[2021-07-31 18:02] VITALS: BMI 20.5
[2021-07-31] MEDS: Sodium Chloride 0.9% 1,000 ML IV SCH (18:31)
[2021-07-31] MEDS: levETIRAcetam 500 MG TAB PER TUBE SCH (20:23)
[2021-08-01] MEDS ORDERED: Vancomycin HCl 1 GM in Sodium Chloride 0.9% 250 ML 250 ML IVPB SCH (01:00)
[2021-08-01] MEDS: Cefepime 2 GM in Sodium Chloride 0.9% 100 ML IVPB SCH ×3 (01:31→20:37)
[2021-08-01] MEDS: Sodium Chloride 0.9% 1,000 ML IV SCH ×3 (04:39→23:35)
[2021-08-01 04:57] LABS: #Eosinphils 0.2 thou/uL (0.0-0.7); #Monocytes 0.6 thou/uL (0.11-0.59); #Neutrophils 9.4 thou/uL (1.40-6.50); %Basophils 0.3 % (0.0-1.0); %Eosinophils 1.7 % (0.0-10.0); %Lymphocytes 16.3 % (21.0-51.0); %Neutrophils 76.6 % (42.0-75.0); Hemoglobin 8.8 g/dL (14.0-18.0); Mean Corpuscular HGB CONC 31.6 g/dL (32.0-36.0); Mean Corpuscular Hemoglobin 27.7 pg (27.0-31.0); Mean Corpuscular Volume 87.7 fL (78.0-98.0); Mean Platelet Volume 12.9 fL (7.4-10.4); Platelet Count 81 thou/uL (130-400); RBC Distribution Width 14.6 % (11.5-14.5); Red Blood Cell (RBC) Count 3.16 mill/uL (4.70-6.10); White Blood Cell (WBC) Count 12.2 thou/uL (4.8-10.8)
[2021-08-01 05:29] LABS: Anion Gap 11 mmol/L (10-20); BUN (Urea Nitrogen) 41 mg/dL (8.4-25.7); Calc. Creatinine Clearance 67 mL/min (70-130); Calcium 8.7 mg/dL (7.8-10.44); Carbon Dioxide 24 mmol/L (22-29); Chloride 114 mmol/L (98-107); Glucose 114 mg/dL (70-105); Potassium 3.7 mmol/L (3.5-5.1); Sodium 145 mmol/L (136-145)
[2021-08-01] MEDS: levETIRAcetam 500 MG TAB PER TUBE SCH ×2 (09:12→20:37)
[2021-08-01] MEDS: Vancomycin HCl 750 MG in Sodium Chloride 0.9% 250 ML 250 ML IVPB SCH ×2 (12:09→23:35)
[2021-08-01] MEDS: Gabapentin 300 MG CAP PO SCH (20:37)
[2021-08-01] MEDS: Simvastatin 10 MG TAB PER TUBE SCH (20:39)
[2021-08-02 05:02] LABS: #Eosinphils 0.4 thou/uL (0.0-0.7); #Lymphocytes 1.4 thou/uL (1.20-3.40); #Monocytes 0.6 thou/uL (0.11-0.59); #Neutrophils 8.4 thou/uL (1.40-6.50); %Basophils 0.2 % (0.0-1.0); %Eosinophils 3.9 % (0.0-10.0); %Monocytes 5.3 % (0.0-10.0); %Neutrophils 77.6 % (42.0-75.0); Hemoglobin 8.5 g/dL (14.0-18.0); Mean Corpuscular HGB CONC 32.6 g/dL (32.0-36.0); Mean Corpuscular Hemoglobin 28.5 pg (27.0-31.0); Mean Corpuscular Volume 87.4 fL (78.0-98.0); Mean Platelet Volume 12.4 fL (7.4-10.4); Platelet Count 86 thou/uL (130-400); RBC Distribution Width 14.4 % (11.5-14.5); Red Blood Cell (RBC) Count 2.98 mill/uL (4.70-6.10); White Blood Cell (WBC) Count 10.8 thou/uL (4.8-10.8)
[2021-08-02 05:12] LABS: Anion Gap 12 mmol/L (10-20); Calc. Creatinine Clearance 77 mL/min (70-130); Calcium 9.1 mg/dL (7.8-10.44); Carbon Dioxide 23 mmol/L (22-29); Chloride 115 mmol/L (98-107); Glucose 181 mg/dL (70-105); Potassium 3.6 mmol/L (3.5-5.1); Sodium 146 mmol/L (136-145)
[2021-08-02] MEDS: Insulin Regular 300 UNITS/3 ML VIAL SC PRN ×2 (05:31→15:15)
[2021-08-02 05:49] LABS: BUN (Urea Nitrogen) 24 mg/dL (8.4-25.7)
[2021-08-02] MEDS ORDERED: Non-Formulary Item 1 EACH (Metformin Hcl [Metformin Hcl] 1,000 MG Tablet) PER TUBE SCH (08:00)
[2021-08-02] MEDS: Sodium Chloride 0.9% 1,000 ML IV SCH (08:15)
[2021-08-02] MEDS: Cefepime 2 GM in Sodium Chloride 0.9% 100 ML IVPB SCH ×2 (09:31→21:23)
[2021-08-02] MEDS: Gabapentin 300 MG CAP PO SCH ×2 (09:31→21:22)
[2021-08-02] MEDS: levETIRAcetam 500 MG TAB PER TUBE SCH ×2 (09:31→21:23)
[2021-08-02] MEDS ORDERED: metFORMIN 500 MG TAB PER TUBE SCH (09:45)
[2021-08-02] MEDS: Vancomycin HCl 750 MG in Sodium Chloride 0.9% 250 ML 250 ML IVPB SCH (11:33)
[2021-08-02] MEDS ORDERED: Ondansetron PF 4 MG/2 ML Vial IVP PRN (11:43)
[2021-08-02] MEDS ORDERED: Loperamide HCl 2 MG CAP PER TUBE PRN (11:43)
[2021-08-02] MEDS ORDERED: hydrALAZINE 20 MG/ML VIAL SLOW IVP PRN (11:43)
[2021-08-02] MEDS ORDERED: Bisacodyl 10 MG SUPP PR PRN (11:43)
[2021-08-02] MEDS ORDERED: Cepastat Lozenges 1 LOZ PO PRN (11:43)
[2021-08-02] MEDS ORDERED: Sodium Chloride 0.65% Nasal 44 ML BOT EA NARE PRN (11:43)
[2021-08-02] MEDS ORDERED: GUAIFENESIN SF SOLN 200 MG/10 ML UDCUP PER TUBE PRN (11:43)
[2021-08-02] MEDS ORDERED: Metoclopramide HCl 10 MG/2 ML VIAL IVP PRN (11:43)
[2021-08-02] MEDS ORDERED: Hydrocerin (Eucerin) Cream 120 gm Jar TOP PRN (11:43)
[2021-08-02] MEDS ORDERED: Senokot S 8.6-50 MG TAB PER TUBE PRN (11:43)
[2021-08-02] MEDS ORDERED: Artificial Tear Sol 15 ML BOT EA EYE PRN (11:43)
[2021-08-02 12:12] LABS: Vancomycin, Trough 16.3 ug/mL
[2021-08-02] MEDS: metFORMIN 500 MG TAB PER TUBE SCH (17:05)
[2021-08-02] MEDS: Simvastatin 10 MG TAB PER TUBE SCH (21:22)
[2021-08-03] MEDS: Vancomycin HCl 750 MG in Sodium Chloride 0.9% 250 ML 250 ML IVPB SCH ×2 (00:21→12:24)
[2021-08-03] MEDS: Cefepime 2 GM in Sodium Chloride 0.9% 100 ML IVPB SCH ×2 (07:58→21:37)
[2021-08-03] MEDS: Gabapentin 300 MG CAP PO SCH ×2 (07:58→21:36)
[2021-08-03] MEDS: metFORMIN 500 MG TAB PER TUBE SCH ×2 (07:58→16:51)
[2021-08-03] MEDS: Lisinopril 5 MG TAB PER TUBE SCH (08:00)
[2021-08-03] MEDS: Cholecalciferol 1,000 UNITS (25 MCG) TAB PER TUBE SCH (08:01)
[2021-08-03] MEDS: Zinc Sulfate 220 MG CAP PER TUBE SCH (08:01)
[2021-08-03] MEDS: levETIRAcetam 500 MG TAB PER TUBE SCH ×2 (08:01→21:37)
[2021-08-03 08:48] LABS: #Eosinphils 0.4 thou/uL (0.0-0.7); #Lymphocytes 1.4 thou/uL (1.20-3.40); #Monocytes 0.5 thou/uL (0.11-0.59); #Neutrophils 4.5 thou/uL (1.40-6.50); %Basophils 0.1 % (0.0-1.0); %Eosinophils 5.2 % (0.0-10.0); %Lymphocytes 20.7 % (21.0-51.0); %Monocytes 7.1 % (0.0-10.0); %Neutrophils 66.9 % (42.0-75.0); Hemoglobin 9.2 g/dL (14.0-18.0); Mean Corpuscular HGB CONC 32.7 g/dL (32.0-36.0); Mean Corpuscular Hemoglobin 28.3 pg (27.0-31.0); Mean Corpuscular Volume 86.4 fL (78.0-98.0); Mean Platelet Volume 12.4 fL (7.4-10.4); Platelet Count 101 thou/uL (130-400); RBC Distribution Width 14.5 % (11.5-14.5); Red Blood Cell (RBC) Count 3.26 mill/uL (4.70-6.10); White Blood Cell (WBC) Count 6.7 thou/uL (4.8-10.8)
[2021-08-03 08:57] LABS: ALT (SGPT) 8 U/L (8-55); AST (SGOT) 12 U/L (5-34); Alkaline Phosphatase 64 U/L (40-110); Anion Gap 12 mmol/L (10-20); BUN (Urea Nitrogen) 20 mg/dL (8.4-25.7); Bilirubin, Total 0.3 mg/dL (0.2-1.2); Calc. Creatinine Clearance 76 mL/min (70-130); Calcium 9.4 mg/dL (7.8-10.44); Carbon Dioxide 25 mmol/L (22-29); Chloride 112 mmol/L (98-107); Globulin 3.7 g/dL (2.4-3.5); Glucose 212 mg/dL (70-105); Magnesium 1.6 mg/dL (1.6-2.6); Phosphorus 2.3 mg/dL (2.3-4.7); Potassium 4.2 mmol/L (3.5-5.1); Protein, Total 6.7 g/dL (6.0-8.3); Sodium 145 mmol/L (136-145)
[2021-08-03] MEDS: Simvastatin 10 MG TAB PER TUBE SCH (21:37)
[2021-08-04] MEDS: Vancomycin HCl 750 MG in Sodium Chloride 0.9% 250 ML 250 ML IVPB SCH (00:35)
[2021-08-04 09:02] VITALS: BP 135/78; TEMP 99
[2021-08-04] MEDS: Cefepime 2 GM in Sodium Chloride 0.9% 100 ML IVPB SCH (10:26)
[2021-08-04] MEDS: metFORMIN 500 MG TAB PER TUBE SCH (10:26)
[2021-08-04] MEDS: Cholecalciferol 1,000 UNITS (25 MCG) TAB PER TUBE SCH (10:26)
[2021-08-04] MEDS: Zinc Sulfate 220 MG CAP PER TUBE SCH (10:26)
[2021-08-04] MEDS: levETIRAcetam 500 MG TAB PER TUBE SCH (10:27)
[2021-08-04] MEDS: Lisinopril 5 MG TAB PER TUBE SCH (10:27)
[2021-08-04] MEDS: Gabapentin 300 MG CAP PO SCH (10:27)
[2021-08-04 11:18] LABS: Vancomycin, Trough 21.9 ug/mL
[2021-08-04] MEDS ORDERED: Vancomycin 1.5 GRAM/300 ML BAG 1.5 GM in Premix Bag 1 BAG IVPB SCH (12:00)
[2021-08-04] MEDS: Insulin Regular 300 UNITS/3 ML VIAL SC PRN (12:39)
== END 2021-08-04 16:15 | DRG 871 ==
LOC: ERS 12:44 → IMCU/EMU 15:29 → T4-B 08-02 16:06
PROVIDERS: ADMIT Internal Medicine; ATTEND Internal Medicine
PROC: 02HV33Z Insertion of Infusion Device into Superior Vena Cava, Percutaneous Approach (ICD-10-PCS; principal; 2021-07-31)
DX: A41.9 Sepsis, unspecified organism (principal); J96.01 Acute respiratory failure with hypoxia; R65.21 Severe sepsis with septic shock; E43 Unspecified severe protein-calorie malnutrition; J69.0 Pneumonitis due to inhalation of food and vomit; I69.351 Hemiplegia and hemiparesis following cerebral infarction affecting right dominant side; N17.9 Acute kidney failure, unspecified; G95.20 Unspecified cord compression; Z68.1 Body mass index [BMI] 19.9 or less, adult; Z20.822 Contact with and (suspected) exposure to COVID-19; E11.65 Type 2 diabetes mellitus with hyperglycemia; R56.9 Unspecified convulsions; D64.9 Anemia, unspecified; D69.6 Thrombocytopenia, unspecified; R13.10 Dysphagia, unspecified; I10 Essential (primary) hypertension; Z89.512 Acquired absence of left leg below knee
CPT/HCPCS: 0240U; 36415; 36416; 36556; 51701; 70450; 71045; 80048; 80053; 80202; 81003; 82553; 82805; 83605; 83690; 83735; 84100; 84443; 84484; 85025; 85610; 85730; 86850; 86900; 86901; 87040; 87086; 93005; 94760; 96365; 96366; 96367; J0692; J1815; J2405; J3370; J3490; J7050